=== PATIENT | female | born 1950 | race African-American/Black ===

== ENCOUNTER 2018-06-29 07:48 | Outpatient (CLI) | payer MEDICARE ==
--- NOTE | 2018-06-29 09:21 | CT ---
LOW DOSE PULMONARY LUNG SCAN SCREENING CT NONCONTRAST: Date: 06/29/18 INDICATION: Low dose screening evaluation. History of breast cancer. FINDINGS: There is a small, partially cavitary nodule of the lateral right upper lobe, which measures approxima tely 1.0 cm. There is nonspecific reticular nodularity of the lateral aspect of the right lung apex. There are scattered linear opacities of the lungs, which may be related to atelectasis and/or scar. M ild pulmonary emphysema is present bilaterally. There is no effusion. Scattered vascular disease is p resent. The regional soft tissues are limited by noncontrast technique. Tracheobronchial air column i s patent. IMPRESSION: Lung Rads 4A - Suspicious 1 cm partially cavitary right upper lobe nodule. Recommend PET CT for further assessment. POS: GABRIELA
== END 2018-06-29 07:49 | disposition home or self-care (01) ==
LOC: CT 07:48
PROVIDERS: ATTEND Family Medicine
DX: Z87.891 Personal history of nicotine dependence (principal); R93.89 Abnormal findings on diagnostic imaging of other specified body structures; R91.1 Solitary pulmonary nodule; Z85.3 Personal history of malignant neoplasm of breast
CPT/HCPCS: G0297

== ENCOUNTER 2018-07-11 13:02 | Outpatient (CLI) | payer MEDICARE, OTHER ==
--- NOTE | 2018-07-11 16:01 | PET ---
PET CT: HISTORY: 68-year-old female with lung nodule on the CT scan of 06/29/18. Patient has a history of breast cance r and is status post right lumpectomy and chemo/radiation therapy. TECHNIQUE: PET scanning with CT attenuation correction was performed from the base of the brain through the prox imal thighs following the intravenous administration of 10 mCi [id number] in the left arm. Imaging was p erformed after an uptake interval of 45 minutes. FINDINGS: Correlation is made with the CT chest of 06/29/18. No srinivasa hypermetabolism is seen in the neck, mediastinum, hilar regions, axilla, abdomen, pelvis, or inguinal regions. No hypermetabolic lung nodules, liver, adrenal, or skeletal lesions are seen. There is physiologic activity in the GI and tracts, and the visualized portions of the brain. The CT scan used for attenuation correction demonstrates no evidence of pleural effusions or ascites. IMPRESSION: 1. Negative PET scan. 2. A follow-up CT scan of the chest is recommended in 3 months. BEN [place]. POS: GABRIELA
== END 2018-07-11 13:03 | disposition home or self-care (01) ==
LOC: PET 13:02
PROVIDERS: ATTEND Family Medicine
DX: R93.89 Abnormal findings on diagnostic imaging of other specified body structures (principal)
CPT/HCPCS: 78815; A9552

== ENCOUNTER 2018-10-18 08:04 | Outpatient (CLI) | payer MEDICARE, OTHER ==
--- NOTE | 2018-10-18 11:31 | CT ---
CT PULMONARY LUNG SCAN: HISTORY: The patient has a history of breast cancer. Smoked for 30 years. This is followup for lung nodule. FINDINGS: There are some emphysematous lung changes seen. There are some peripheral blebs noted. There is norm e interstitial scarring present. There are some atelectatic changes in the lung bases. Within the right upper lobe, there are two areas of slight nodularity, one is more superior. It has more of a linear parenchymal change, probably related to scar. It has a small, 5 to 6 mm nodular com ponent, which appears slightly more prominent on the axial images, but on coronal views I do not feel it has significantly changed since the prior examination. The second area of nodularity is an ill-defined nodular area, measuring approximately 10 mm in size. The difference in measurement since the prior examination is only approximately 1 millimeter, and th is is not felt to be significant. There is no significant mediastinal or axillary adenopathy appreciated. There are coronary artery ca lcifications seen. The visualized liver parenchymal is unremarkable. IMPRESSION: 1. Lung-RADS category 3-Probably benign findings. Given the stability of the nodular areas within t he right upper lobe, six-month follow-up low-dose CT is recommended. 2. Category S-This is given for the other potentially clinically significant findings, which include coronary artery calcifications and emphysematous lung change. POS: TPC
== END 2018-10-18 08:05 | disposition home or self-care (01) ==
LOC: BICCT 08:04
PROVIDERS: ATTEND Family Medicine
DX: R91.8 Other nonspecific abnormal finding of lung field (principal); I25.10 Atherosclerotic heart disease of native coronary artery without angina pectoris; J98.4 Other disorders of lung
CPT/HCPCS: G0297

== ENCOUNTER 2018-11-27 06:52 | Outpatient (CLI) | payer MEDICARE, OTHER ==
--- NOTE | 2018-11-27 07:57 | ULT ---
ABDOMINAL ULTRASOUND: INDICATION: Abdominal pain. Several foci of [id number] artifact is seen on the gallbladder wall suggesting adenomyomatosis of the gallbladder. No evidence of gallstones. The common duct is normal caliber. The liver is unrem arkable. Spleen is unremarkable. The visualized aorta shows atherosclerotic change. Visualized IVC unremarkable. Pancreas is partially imaged and appears unremarkable as visualized. Both kidneys are imaged. Both kidneys show mild increased cortical echogenicity. There is mild full ness of the right collecting structures suggesting mild right hydronephrosis. Kidneys are otherwise unremarkable. IMPRESSION: 1. No definite gallstones. Question gallbladder adenomyomatosis. 2. Evidence of mild right hydronephrosis. 3. Mild increased renal cortical echogenicity. Correlate with renal function tests. POS: GABRIELA
== END 2018-11-27 06:53 | disposition home or self-care (01) ==
LOC: BICULT 06:52
PROVIDERS: ATTEND Internal Medicine
DX: K21.9 Gastro-esophageal reflux disease without esophagitis (principal); R74.0 Nonspecific elevation of levels of transaminase and lactic acid dehydrogenase [LDH]; R10.13 Epigastric pain; R19.4 Change in bowel habit; R19.7 Diarrhea, unspecified; R63.4 Abnormal weight loss; N13.30 Unspecified hydronephrosis
CPT/HCPCS: 76700

== ENCOUNTER 2019-01-31 12:42 | Outpatient (CLI) | payer MEDICARE, OTHER ==
--- NOTE | 2019-02-27 11:37 | MMO ---
Bilateral MAMMO Bilat Screen [facility]. CLINICAL HISTORY: Patient is 68 years old and is seen for screening. The patient has the following family history of breast cancer: mother and sister. The patient has a history of malignant (generic) at age 56. The patient has a history of right Lumpectomy - malignant. VIEWS: The views performed were: bilateral craniocaudal with tomosynthesis and bilateral mediolateral oblique with tomosynthesis. FILMS COMPARED: The present examination has been compared to prior imaging studies performed at [facility] on 10/07/2016 and 01/04/2018. MAMMOGRAM FINDINGS: There are scattered fibroglandular densities. Finding 1: There is an area of architectural distortion with associated post-surgical scar seen in the right breast. Finding 2: There are benign appearing calcifications seen in both breasts. There are also vascular calcifications. There are no suspicious masses, suspicious calcifications, or new areas of architectural distortion. IMPRESSION: THERE IS NO MAMMOGRAPHIC EVIDENCE OF MALIGNANCY. A ROUTINE FOLLOW-UP MAMMOGRAM IN 1 YEAR IS RECOMMENDED. THE RESULTS OF THIS EXAM WERE SENT TO THE PATIENT. ACR BI-RADS Category 2 - Benign finding MAMMOGRAPHY NOTE: 1. A negative mammogram report should not delay a biopsy if a dominant of clinically suspicious mass is present. 2. Approximately 10% to 15% of breast cancers are not detected by mammography. 3. Adenosis and dense breasts may obscure an underlying neoplasm.
== END 2019-01-31 12:43 | disposition home or self-care (01) ==
LOC: BICMAMMO 12:42
PROVIDERS: ATTEND Family Medicine
DX: Z12.31 Encounter for screening mammogram for malignant neoplasm of breast (principal); Z80.3 Family history of malignant neoplasm of breast
CPT/HCPCS: 77063; 77067

== ENCOUNTER 2019-04-25 07:54 | Outpatient (CLI) | payer MEDICARE, OTHER ==
--- NOTE | 2019-04-25 11:10 | CT ---
CT CHEST WITHOUT CONTRAST: CT LUNG SCAN LOW DOSE: HISTORY: Personal history of tobacco use. Twenty-four years of smoking. Patient currently smokes. COMPARISON: 06/29/2018 10/18/2018 TECHNIQUE: Low-dose screening lung CT is performed utilizing institutional protocol. FINDINGS: Lung screening specific (LUNG-RADS) Category 3-Redemonstration of a slightly irregular, marginated no dule in the right apex with adjacent linear density. The nodular component measures 0.6 cm (previously measuring 0.5 cm). The second nodule in the right upper lobe appears to have small foci o f cavitation. This nodule is also unchanged, measuring 0.9 x 5 cm (previously measuring 0.6 x 1.1 cm). Potential significant incidentals (LUNG-RADS Category S): Heterogeneous thyroid gland. Atherosclero sis of a nonaneurysmal aorta. There are coronary artery calcifications. Pulmonary incidentals: Stable fibrotic and emphysematous change. Other incidentals: Stable hypodensities involving the hepatic parenchyma, favored to be cysts. IMPRESSION: 1. LUNG-RADS 3: Probably benign findings. The right apical nodule is stable when compared to the m ost recent prior examination but has increased in size when compared to the June 2018 study. The cavitary nodule in the right upper lobe is unchanged and there is almost one year stability. Fol low-up imaging in 6 months is recommended. 2. LUNG-RADS Category S: Negative. No new or unknown potentially significant incidental findings re quiring urgent additional evaluation. 3. Other incidentals as above. RECOMMENDATIONS: Continued routine annual low-dose lung screening CT. Followup in one year. Transcribed Date/Time: 04/25/2019 11:22 AM
== END 2019-04-25 07:55 | disposition home or self-care (01) ==
LOC: CT 07:54
PROVIDERS: ATTEND Family Medicine
DX: Z87.891 Personal history of nicotine dependence (principal); R91.1 Solitary pulmonary nodule
CPT/HCPCS: G0297

== ENCOUNTER 2019-10-19 08:47 | Outpatient (CLI) | payer MEDICARE, OTHER ==
--- NOTE | 2019-10-19 11:29 | MRI ---
MRI BRAIN NONCONTRAST: DATE: 10/19/2019 HISTORY: 69-year-old female with: History of breast cancer in female Z85.3, and memory changes R41.3. FINDINGS: Please note that a negative noncontrast MRI does not completely rule out intracranial metastasis. If there is concern for brain metastasis, MRI with and without contrast would be recommended. The ventricles are normal in size and configuration. There is no major intraaxial signal abnormality , restricted diffusion, midline shift or any other mass effect, recent intraaxial hemorrhage, or extr aaxial fluid collection. There are a few punctate T2 hyperintensities in the left frontal deep cerebral white matter, which ar e nonspecific, but are statistically most likely to represent minimal chronic ischemic white matter c hanges due to minimal microvascular atherosclerosis, very common for this age group. IMPRESSION: Essentially normal. jnr POS: CET
== END 2019-10-19 08:48 | disposition home or self-care (01) ==
LOC: MRI 08:47
PROVIDERS: ATTEND Family Medicine
DX: R41.3 Other amnesia (principal); Z85.3 Personal history of malignant neoplasm of breast
CPT/HCPCS: 70551

== ENCOUNTER 2020-06-26 15:15 | Inpatient (IN) | payer MEDICARE, OTHER ==
[2020-06-26] MEDS ORDERED: methylPREDNISolone Sod Succ/PF 125 MG/2 ML VIAL ONE ×2 (15:55→16:06)
[2020-06-26] MEDS ORDERED: Aspirin Chewable 81 MG TAB ONE ×2 (15:55→16:06)
[2020-06-26 16:08] LABS: #Basophils 0.1 thou/uL (0.0-0.2); #Lymphocytes 2.5 thou/uL (1.20-3.40); #Monocytes 0.5 thou/uL (0.11-0.59); #Neutrophils 2.7 thou/uL (1.40-6.50); %Basophils 1.1 % (0.0-1.0); %Eosinophils 0.3 % (0.0-10.0); %Lymphocytes 43.3 % (21.0-51.0); %Monocytes 9.3 % (0.0-10.0); Mean Corpuscular HGB CONC 32.9 g/dL (32.0-36.0); Mean Corpuscular Hemoglobin 28.7 pg (27.0-31.0); Mean Corpuscular Volume 87.2 fL (78.0-98.0); Mean Platelet Volume 10.2 fL (7.4-10.4); Platelet Count 199 thou/uL (130-400); RBC Distribution Width 13.9 % (11.5-14.5); Red Blood Cell (RBC) Count 4.89 mill/uL (4.20-5.40); White Blood Cell (WBC) Count 5.8 thou/uL (4.8-10.8)
--- NOTE | 2020-06-26 16:09 | RAD ---
RADIOGRAPH CHEST 1 VIEW: DATE: 06/26/2020 TIME: 3:58 PM HISTORY: 70-year-old female with productive cough and dyspnea COMPARISON: 02/02/2017 FINDINGS: New finding of cardiomegaly. Mild haziness at central lung bases bilaterally, new since prior study. This may represent mild inter stitial edema. No consolidation. No pneumothorax. Questionable small bilateral pleural effusions. Again noted are the right axillary surgical clips. IMPRESSION: Cardiomegaly, possible mild pulmonary interstitial edema, and questionable small bilateral pleural ef fusions
[2020-06-26 16:34] LABS: ALT (SGPT) 124 U/L (8-55); AST (SGOT) 71 U/L (5-34); Albumin 3.7 g/dL (3.4-4.8); Alkaline Phosphatase 81 U/L (40-110); Anion Gap 14 mmol/L (10-20); BUN (Urea Nitrogen) 12 mg/dL (9.8-20.1); Bilirubin, Total 1.2 mg/dL (0.2-1.2); Calc. Creatinine Clearance 0 mL/min (70-130); Calcium 8.9 mg/dL (7.8-10.44); Carbon Dioxide 20 mmol/L (23-31); Chloride 106 mmol/L (98-107); Estimated GFR-MDRD Greater than 90; Globulin 3.2 g/dL (2.4-3.5); Glucose 113 mg/dL (80-115); Potassium 4.2 mmol/L (3.5-5.1); Protein, Total 6.9 g/dL (6.0-8.3); Sodium 136 mmol/L (136-145)
[2020-06-26] MEDS ORDERED: Albuterol Sulfate 2.5 mg/3 ml Neb ONE (16:34)
[2020-06-26] MEDS ORDERED: Furosemide 40 MG/4 ML VIAL ONE (17:36)
--- NOTE | 2020-06-26 18:08 | PDOC.HHP ---
Hospitalist HPI - History of Present Illness Chest pain, shortness of breath History of Present Illness: This is a 70-year-old female patient with a history of Hypertension, gastritis, breast cancer, thyroid cancer, polyneuropathy, who presents today with worsening shortness of breath for the past 2 to 3 days. Next patient has been in her usual state of health recently started 3 days ago with cough easy fatigability and shortness of breath. She denies any associated wheezing. With symptoms becoming worse she came to the ED with her for further evaluation. She denies associated fever, orthopnea or paroxysmal nocturnal dyspnea. She also denies any swelling of her lower extremities. She has associated right-sided chest pain with cough. Pain is localized on the right side of the chest, 6/10 intensity with coughing. Nonradiating. No relationship to meals or activity. She denies any trauma. At presentation blood pressure was 134/84, pulse 106, temperature 98.5 and saturation 98% on room air. Troponins were 0.01, BNP was elevated at 2005, bicarb slightly reduced at 20, AST 71, ALT 124. CBC was essentially within normal limit. Chest x-ray showed cardiomegaly with mild pulmonary interstitial edema and questionable small bilateral pleural effusions. EKG showed sinus tachycardia with left axis deviation special infarct age undetermined. Also had nonspecific ST and T wave abnormalities. She was given DuoNeb nebulization and diuresis to Lasix 40 mg. Also received Solu-Medrol and aspirin. She also however received 1 L normal saline. Symptoms were marginally improved at the time of my evaluation. Patient also has recent significant memory loss and currently on memantine and donepezil. Started these medications about 2 weeks ago. She also has a history of breast cancer with right partial mastectomy and thyroid cancer which was treated over a decade ago. She recently had EGD with biopsies showing chronic gastritis about a year ago Hospitalist ROS - Review of Systems Constitutional: denies: fever, chills, sweats Respiratory: reports: cough, shortness of breath, SOB with excertion. denies: hemoptysis Cardiovascular: reports: chest pain, palpitations. denies: orthopnea, paroxysmal noc. dyspnea Gastrointestinal: denies: nausea, vomiting, abdominal pain, diarrhea Genitourinary: denies: dysuria, frequency, incontinence Musculoskeletal: reports: back pain Neurological: denies: weakness, numbness Hospitalist History - Past Medical History Cardiac: reports: HTN Gastrointestinal: reports: Gastritis - Past Surgical History Past Surgical History: reports: Hysterectomy Other Surgical History: Partial mastectomy. - Family History Family History: reports: hypertension - Social History Smoking Status: Never smoker Alcohol: reports: None, Occassional Living Situation: With Family - Exam General Appearance: awake alert Eye: PERRL, anicteric sclera ENT: normocephalic atraumatic, no oropharyngeal lesions Neck: supple, symmetric, no JVD, no thyromegaly Heart: RRR, no murmur, no gallops, normal peripheral pulses Respiratory: no wheezes Respiratory - other findings: Reduced air entry bilaterally Gastrointestinal: soft, non-tender Extremities: no cyanosis, no clubbing, no edema Neurological: cranial nerve grossly intact, normal sensation to touch Psychiatric: normal affect, A&O x 3 Hospitalist Results - Labs Result Diagrams: 06/26/20 15:46 06/26/20 15:46 Lab results: WBC 5.8 thou/uL (4.8-10.8) 06/26/20 15:46 Hgb 14.0 g/dL (12.0-16.0) 06/26/20 15:46 Hct 42.6 % (36.0-47.0) 06/26/20 15:46 MCV 87.2 fL (78.0-98.0) 06/26/20 15:46 Plt Count 199 thou/uL (130-400) 06/26/20 15:46 Neutrophils % 46.0 % (42.0-75.0) 06/26/20 15:46 Sodium 136 mmol/L (136-145) 06/26/20 15:46 Potassium 4.2 mmol/L (3.5-5.1) 06/26/20 15:46 Chloride 106 mmol/L (98-107) 06/26/20 15:46 Carbon Dioxide 20 mmol/L (23-31) L 06/26/20 15:46 BUN 12 mg/dL (9.8-20.1) 06/26/20 15:46 Creatinine 0.75 mg/dL (0.6-1.1) 06/26/20 15:46 Glucose 113 mg/dL (80-115) 06/26/20 15:46 Calcium 8.9 mg/dL (7.8-10.44) 06/26/20 15:46 Total Bilirubin 1.2 mg/dL (0.2-1.2) 06/26/20 15:46 AST 71 U/L (5-34) H 06/26/20 15:46 ALT 124 U/L (8-55) H 06/26/20 15:46 Alkaline Phosphatase 81 U/L (40-110) 06/26/20 15:46 Troponin I Less than 0.010 ng/mL (< 0.028) 06/26/20 15:46 B-Natriuretic Peptide 2005.9 pg/mL (0-100) H 06/26/20 15:46 Serum Total Protein 6.9 g/dL (6.0-8.3) 06/26/20 15:46 Albumin 3.7 g/dL (3.4-4.8) 06/26/20 15:46 Hospitalist H&P A/P - Plan Plan: This is a 70-year-old female patient with a history of breast cancer, thyroid ca ncer, hypertension, gastritis who presented today with worsening shortness of breath. Initial evaluation concerning for new heart failure exacerbation and possible COPD. She will be admitted for diuresis and monitor on telemetry. Acute heart failure exacerbation Elevated BNP with congestion Likely secondary to uncontrolled hypertension Patient does not smoke and hardly drinks alcohol. Hold diuresis Monitor BMPreplace potassium/magnesium Daily weights Input output monitoring Heart healthy diet with low sodium Cardiology consult in a.m. for new onset heart failure Possible COPD exacerbation This is also possible however she started an ongoing smoker. DuoNeb PRN and scheduled Continue monitoring Chest pain Pleuritic Mainly right-sided in the region of her ribs No relationship to activity however worse with cough Resolved with diuresis Troponins flattrend Monitor on telemetry Hypertension Systolic blood pressure in the 150s. Was previously on blood pressure BP medications after acute event subsidedHCTZ Start amlodipine 5 mg daily Start beta-blockers once acute event subsided Continue diuresis on Lasix. PRN hydralazine for now. History of gastritis Start pantoprazole IV Back pain With central resolved with dialysis Continue monitoring. History of breast cancer/thyroid concern VT prophylaxisLovenox CODE STATUSfull code
[2020-06-26 18:20] LABS: Bilirubin Negative (Negative); Blood, Urine Negative (Negative); Clarity Clear (Clear); Glucose, Urine (Dipstick) Normal (Negative); Ketone, Urine Negative (Negative); Leukocyte Negative Leu/uL (Negative); Nitrite Negative (Negative); Protein, Urine (Dipstick) Negative (Neg-Trace); Specific Gravity, Urine 1.005 (1.002-1.036); Urobilinogen Normal mg/dL (Less than 2)
[2020-06-26] MEDS ORDERED: Furosemide 40 MG/4 ML VIAL SLOW IVP SCH (18:30)
[2020-06-26] MEDS ORDERED: Amlodipine 5 MG TAB PO SCH (21:00)
--- NOTE | 2020-06-26 21:32 | PDOC.FMACP ---
Advance Care Planning - Note Participants: family Summary: Advanced Care Planning was discussed. The diagnosis, prognosis and goals of care were discussed.
[2020-06-26 22:28] LABS: Troponin I 0.013 ng/mL (< 0.028)
[2020-06-26 23:04] LABS: Anion Gap 17 mmol/L (10-20); BUN (Urea Nitrogen) 11 mg/dL (9.8-20.1); Calc. Creatinine Clearance 55 mL/min (70-130); Calcium 8.7 mg/dL (7.8-10.44); Carbon Dioxide 22 mmol/L (23-31); Chloride 104 mmol/L (98-107); Estimated GFR-MDRD 90; Glucose 147 mg/dL (80-115); Sodium 140 mmol/L (136-145)
[2020-06-26 23:08] LABS: Potassium 2.9 mmol/L (3.5-5.1)
[2020-06-26] MEDS ORDERED: Electrolyte Replacement Protoc 1 EACH EACH FS SCH (23:30)
[2020-06-26] MEDS: Potassium Chloride 20 MEQ TAB PO SCH (23:41)
[2020-06-27] MEDS: Potassium Chloride 20 MEQ TAB PO SCH (03:56)
[2020-06-27 04:51] LABS: #Monocytes 0.3 thou/uL (0.11-0.59); #Neutrophils 4.4 thou/uL (1.40-6.50); %Basophils 0.2 % (0.0-1.0); %Eosinophils 0.2 % (0.0-10.0); %Lymphocytes 18.4 % (21.0-51.0); %Monocytes 4.4 % (0.0-10.0); %Neutrophils 76.8 % (42.0-75.0); Hemoglobin 14.2 g/dL (12.0-16.0); Mean Corpuscular HGB CONC 32.8 g/dL (32.0-36.0); Mean Corpuscular Hemoglobin 28.7 pg (27.0-31.0); Mean Corpuscular Volume 87.6 fL (78.0-98.0); Mean Platelet Volume 9.9 fL (7.4-10.4); Platelet Count 199 thou/uL (130-400); RBC Distribution Width 13.7 % (11.5-14.5); Red Blood Cell (RBC) Count 4.93 mill/uL (4.20-5.40); White Blood Cell (WBC) Count 5.7 thou/uL (4.8-10.8)
[2020-06-27 05:15] LABS: ALT (SGPT) 139 U/L (8-55); AST (SGOT) 75 U/L (5-34); Albumin 3.9 g/dL (3.4-4.8); Alkaline Phosphatase 85 U/L (40-110); Anion Gap 15 mmol/L (10-20); BUN (Urea Nitrogen) 11 mg/dL (9.8-20.1); Bilirubin, Total 0.8 mg/dL (0.2-1.2); Calc. Creatinine Clearance 55 mL/min (70-130); Calcium 8.9 mg/dL (7.8-10.44); Carbon Dioxide 24 mmol/L (23-31); Chloride 104 mmol/L (98-107); Estimated GFR-MDRD 90; Globulin 3.1 g/dL (2.4-3.5); Glucose 142 mg/dL (80-115); Magnesium 1.9 mg/dL (1.6-2.6); Potassium 3.7 mmol/L (3.5-5.1); Sodium 139 mmol/L (136-145)
[2020-06-27] MEDS: Acetaminophen 325 MG TAB PO PRN ×2 (07:55→15:28)
[2020-06-27] MEDS: Aspirin Chewable 81 MG TAB PO SCH (07:56)
[2020-06-27] MEDS: Enoxaparin Sodium 30 MG/0.3 ML SYRINGE SC SCH (07:56)
[2020-06-27] MEDS: Pantoprazole 40 MG VIAL IVP SCH (07:57)
[2020-06-27] MEDS ORDERED: Magnesium 2 GM/50 ML 2 GM in Premix Bag 1 BAG IVPB SCH (08:00)
[2020-06-27 08:52] LABS: Potassium 4.2 mmol/L (3.5-5.1)
[2020-06-27] MEDS ORDERED: Amlodipine 5 MG TAB PO SCH (09:00)
[2020-06-27] MEDS ORDERED: Furosemide 40 MG/4 ML VIAL SLOW IVP SCH (09:00)
[2020-06-27] MEDS ORDERED: Iopamidol 370 76% 100 ML VIAL ONE (09:52)
[2020-06-27] MEDS ORDERED: Lidocaine 2% Viscous Solution 10 ML, Aluminum & Magnesium Hydroxide 30 ML SSW SCH (10:45)
[2020-06-27] MEDS ORDERED: Sodium Chloride 0.9% 1,000 ML IV SCH ×2 (11:15→16:53)
--- NOTE | 2020-06-27 11:31 | RAD ---
XR Chest 1 View Portable HISTORY: Pulmonary edema COMPARISON: Previous day FINDINGS: The heart is enlarged. The aorta is tortuous. The lungs are well expanded without lobar con solidation, pneumothoraces, sangita pulmonary edema or pleural effusions. Surgical clips in the right axilla are again seen. IMPRESSION: No radiographic evidence of acute cardiopulmonary process.
[2020-06-27] MEDS ORDERED: Nitroglycerin 0.4 MG TAB (25 Tab Bottle) ONE (12:52)
[2020-06-27 12:56] LABS: SARS-CoV-2 MS2 Positive; SARS-CoV-2 N Gene Negative; SARS-CoV-2 S Gene Negative; SARS-CoV-2 by NAA Not Detected (NotDetected); SARS-CoV-2 orf1ab Negative
[2020-06-27] MEDS ORDERED: Nitroglycerin 0.4 MG TAB (25 Tab Bottle) SL PRN (13:04)
[2020-06-27] MEDS: Ondansetron PF 4 MG/2 ML Vial IVP PRN ×2 (13:26→19:24)
[2020-06-27] MEDS ORDERED: Famotidine 20 MG TAB PO SCH (17:00)
[2020-06-27] MEDS ORDERED: diphenhydrAMINE 25 MG CAP PO SCH (17:30)
[2020-06-27] MEDS ORDERED: predniSONE 20 MG TAB PO SCH (17:30)
--- NOTE | 2020-06-27 20:32 | PDOC.HOSPP ---
- Subjective Encounter Date: 06/27/20 Encounter Time: 11:00 Subjective: The patient this morning had complained of chest pain . Described it as hurting all over and stated that it hurt to breathe. She denied abdominal pain. She also complained of diffuse body pain and was noted to be writhing around in bed. She did have a dry heave . She refused nitro. She reported improvement with zofran This afternoon, patient only had abdominal pain and stated that it hurt everytime she ate. She also had nausea. SHe denied chest pain. The patient reports a dry cough - Objective Vital Signs & Weight: Vital Signs (12 hours) Temp Pulse Resp BP BP Pulse Ox 06/27/20 19:21 98.3 F 111 H 22 H 134/80 100 06/27/20 19:11 104 H 22 H 100 06/27/20 16:13 98.4 F 99 22 H 137/82 98 06/27/20 15:27 97.8 F 98 20 132/68 100 06/27/20 12:16 79 16 06/27/20 11:58 98.0 F 93 18 137/88 99 Weight Admit Weight 113 lb 9.6 oz Weight 113 lb 14.4 oz I&O: 06/26/20 06/27/20 06/28/20 06:59 06:59 06:59 Intake Total 450 1050 Output Total 750 950 Balance -300 100 Result Diagrams: 06/27/20 04:19 06/27/20 08:19 Hospitalist ROS - Review of Systems Constitutional: denies: fever, chills - Medication Medications: Active Medications Generic Name Dose Route Start Last Admin Trade Name Realq PRN Reason Stop Dose Admin Acetaminophen 650 mg 06/27/20 06:41 06/27/20 15:28 Acetaminophen 325 Mg Tab PO 650 mg Q6H PRN Administration Headache/Fever or Pain Albuterol/Ipratropium 3 ml 06/26/20 22:30 06/27/20 19:11 Ipratropium/Albuterol Sulfate 3 Ml Neb NEB 3 ml [id number] CRESCENCIO Administration Aspirin 81 mg 06/27/20 09:00 06/27/20 07:56 Aspirin Chewable 81 Mg Tab PO 81 mg DAILY CRESCENCIO Administration Enoxaparin Sodium 30 mg 06/27/20 09:00 06/27/20 07:56 Enoxaparin Sodium 30 Mg/0.3 Ml Syringe SC 30 mg 0900 CRESCENCIO Administration Sodium Chloride 1,000 mls @ 50 mls/hr 06/27/20 16:53 06/27/20 17:10 Normal Saline 0.9% IV 1,000 mls .Q20H CRESCENCIO Administration Ondansetron HCl 4 mg 06/27/20 13:04 06/27/20 19:24 Ondansetron Pf 4 Mg/2 Ml Vial IVP 4 mg Q6H PRN Administration Nausea/Vomiting Pantoprazole Sodium 40 mg 06/27/20 09:00 06/27/20 07:57 Pantoprazole 40 Mg Vial IVP 40 mg DAILY CRESCENCIO Administration - Exam General Appearance: NAD, awake alert General - other findings: initially noted to be writhing around in bed, then appeared more comfortabl Eye: PERRL, anicteric sclera ENT: normocephalic atraumatic, no oropharyngeal lesions Neck: no JVD Heart: RRR, no murmur, no gallops, no rubs Respiratory: CTAB, no wheezes, no rales, no ronchi Gastrointestinal: soft, non-distended, normal bowel sounds Gastrointestinal - other findings: mild epigastric tenderness Extremities: no cyanosis, no clubbing, no edema Skin: normal turgor, no lesions, no rashes Hosp A/P - Plan THis is a 70 year old female with past medical history of breast cancer who presented with chest pain for two days, cough and shortness of breath. She currently now has abdominal pain and is unable to tolerate oral intake Shortness of breath - possibly pulmonary edema - chest X ray initially showed pulmonary Edema. She received IV lasix. Repeat chest Xray was normal - currently on re-evaluation patient does not appear short of breath Chest pain - unclear etiology, may be referred from GI tract? -EKG unremarkable - troponins negative times three Transaminitis - possibly dehydration. IV fluids ordered - CT abdomen ordered Abdominal pain - possibly viral syndrome - trial of pepcid. CT abdomen ordered Nausea - ordered zofran prn Hypokalemia - potassium was 2.9. Improved to 4.2 Cough/Myalgia - COVId swab negative - will check respiratory viral panel to rule out flu Dispo: pending tolerating a regular diet
--- NOTE | 2020-06-27 20:33 | CT ---
CT ABDOMEN AND PELVIS WITHOUT IV CONTRAST: 06/27/20 Oral contrast was not given. Lack of IV and oral contrast limits the exam. There is very little intra-abdominal fat plane. The lung bases appear clear with chronic lung parenchymal changes noted. There are low density lesions seen in the liver, which are consistent with hepatic cysts. These are s table when compared to CT chest of 04/25/19. The spleen is unremarkable. Pancreas poorly evaluated on this unenhanced study appears unremarkable. The stomach is prominent in size but is not distended. Stomach wall cannot be adequately evaluated on this exam. Small bowel loops showed nonspecific distention in the lower abdomen without dilatation. The appendix is not identified. Colon is otherwise unremarkable. Images through the pelvis show a contracted urinary bladder which is not evaluated. No significant fr ee fluid. Evidence of hysterectomy. Osseous structures unremarkable with degenerative disc changes at L5-S1. The aorta is calcified without aneurysm. No evidence of adenopathy. IMPRESSION: Limited exam without IV or oral contrast. No evidence of acute process identified. POS: AGW
[2020-06-27 21:03] LABS: Anion Gap 12 mmol/L (10-20); BUN (Urea Nitrogen) 14 mg/dL (9.8-20.1); Calc. Creatinine Clearance 59 mL/min (70-130); Calcium 8.7 mg/dL (7.8-10.44); Carbon Dioxide 25 mmol/L (23-31); Chloride 103 mmol/L (98-107); Estimated GFR-MDRD Greater than 90; Glucose 168 mg/dL (80-115); Lipase 8 U/L (8-78); Magnesium 2.1 mg/dL (1.6-2.6); Potassium 3.4 mmol/L (3.5-5.1); Sodium 137 mmol/L (136-145)
[2020-06-27 22:00] LABS: Lactic Acid 2.9 mmol/L (0.5-2.2)
[2020-06-27] MEDS ORDERED: traMADol HCl 50 MG TAB PO SCH (22:00)
[2020-06-27 22:11] LABS: ALT (SGPT) 135 U/L (8-55); AST (SGOT) 70 U/L (5-34); Albumin 3.9 g/dL (3.4-4.8); Alkaline Phosphatase 81 U/L (40-110); Bilirubin, Direct 0.4 mg/dL (0.1-0.3); Bilirubin, Total 1.2 mg/dL (0.2-1.2); Protein, Total 7.2 g/dL (6.0-8.3)
[2020-06-27] MEDS ORDERED: diphenhydrAMINE 50 MG/ML VIAL IVP SCH (23:45)
--- NOTE | 2020-06-28 00:02 | CON ---
DATE OF CONSULTATION: 06/27/2020 REASON FOR CONSULTATION: Congestive heart failure. HISTORY OF PRESENT ILLNESS: Ms. Michoacano Edmonds is a 70-year-old woman. The patient was brought to the hospital yesterday with shortness of breath, worsening over the last 2-3 days. She noted increasing shortness of breath and easy fatigability. No wheezing. No chest pain. She had no fever or no nocturnal dyspnea. No orthopnea. No swelling of her lower extremities. When she coughs, she had some discomfort at the right side of her chest. While she was here, she did receive 2 doses of potassium, later had abdominal pain. Potassium was given orally 40 mEq on 2 occasions. Initial blood pressure was 134/84, pulse was 106 initially, temperature 98.5. Troponins negative. The patient was given Solu-Medrol as well as Lasix. This morning, the patient had abdominal pain, but it appeared to occur after the potassium was given. SOCIAL HISTORY: No smoking history. Alcohol none. PAST MEDICAL HISTORY: Negative for heart disease. Positive for hypertension and gastritis. PHYSICAL EXAMINATION: GENERAL: This is a pleasant, thin woman, complaining of abdominal pain. Blood pressure 137/88, pulse 90, regular. EYES: Sclerae nonicteric. MOUTH: Mucous membranes moist. NECK: Supple, no lymphadenopathy. LUNGS: Clear. CARDIAC: The patient was tachycardic at rest with heart rate over 100. No murmur, rub or gallop. ABDOMEN: Soft and nontender. No hepatosplenomegaly. She is thin. EXTREMITIES: No clubbing. No cyanosis. There is no edema. Good peripheral pulses. PERTINENT LABORATORY: Initial potassium is 2.9, is 4.2 after potassium. AST 75, ALT 139. BNP 2005.9. IMAGIN. EKG showed sinus rhythm. 2. Echocardiogram is ordered, but the patient is unable to hold still to get it done. 3. Chest x-ray shows some cardiomegaly. ASSESSMENT: 1. Congestive heart failure, probably systolic, [id number] with markedly increased BNP. 2. Hypokalemia, improved. 3. Increased liver function test, probably hepatic congestion. 4. She does not appear to be volume overloaded. PLAN: 1. We will gently give intravenous fluid. 2. Start Entresto tonight. 3. Hopefully, the patient can have an echocardiogram done tomorrow. 4. Continue low-dose Lovenox, DVT prophylaxis dose. 5. Stop Lasix at the present time. 6. We will follow with you during this hospitalization. Job ID: [id number]
[2020-06-28] MEDS ORDERED: Promethazine HCl 12.5 MG in Sodium Chloride 0.9% 50 ML IVPB SCH (00:30)
[2020-06-28] MEDS: Ondansetron PF 4 MG/2 ML Vial IVP PRN ×4 (02:58→23:34)
[2020-06-28 04:52] LABS: #Lymphocytes 1.5 thou/uL (1.20-3.40); #Monocytes 0.9 thou/uL (0.11-0.59); #Neutrophils 9.4 thou/uL (1.40-6.50); %Basophils 0.1 % (0.0-1.0); %Eosinophils 0.2 % (0.0-10.0); %Lymphocytes 12.9 % (21.0-51.0); %Monocytes 7.8 % (0.0-10.0); %Neutrophils 78.9 % (42.0-75.0); Hemoglobin 13.9 g/dL (12.0-16.0); Mean Corpuscular HGB CONC 31.6 g/dL (32.0-36.0); Mean Corpuscular Hemoglobin 27.9 pg (27.0-31.0); Mean Corpuscular Volume 88.2 fL (78.0-98.0); Mean Platelet Volume 10.1 fL (7.4-10.4); Platelet Count 199 thou/uL (130-400); RBC Distribution Width 14.1 % (11.5-14.5); Red Blood Cell (RBC) Count 4.99 mill/uL (4.20-5.40); White Blood Cell (WBC) Count 11.9 thou/uL (4.8-10.8)
[2020-06-28 05:08] LABS: Anion Gap 15 mmol/L (10-20); BUN (Urea Nitrogen) 15 mg/dL (9.8-20.1); Calc. Creatinine Clearance 63 mL/min (70-130); Calcium 9.2 mg/dL (7.8-10.44); Carbon Dioxide 24 mmol/L (23-31); Chloride 103 mmol/L (98-107); Estimated GFR-MDRD Greater than 90; Glucose 125 mg/dL (80-115); Magnesium 2.3 mg/dL (1.6-2.6); Potassium 3.5 mmol/L (3.5-5.1); Sodium 138 mmol/L (136-145)
[2020-06-28 05:09] LABS: Lactic Acid 1.5 mmol/L (0.5-2.2)
[2020-06-28] MEDS ORDERED: Famotidine/PF 20 mg/2ml Vial SLOW IVP SCH (05:45)
[2020-06-28] MEDS: Potassium Chloride 20 MEQ TAB PO SCH ×2 (07:09→07:17)
--- NOTE | 2020-06-28 08:55 | ULT ---
RIGHT UPPER QUADRANT ULTRASOUND: HISTORY: Abdominal pain with elevated liver function tests. FINDINGS: Images through the gallbladder show echogenic foci along the gallbladder wall which can be seen with adenomyomatosis. No definite gallstones. The common duct is normal caliber. Visualized liver, panc reas, and right kidney appear unremarkable. The technologist describes a negative Barraza's sign. IMPRESSION: Echogenic foci along the gallbladder wall with ring-down artifact noted by the technologist. This is nonspecific but can be seen with adenomyomatosis. No definite gallstones. POS: AGW
--- NOTE | 2020-06-28 09:32 | CT ---
PRELIMINARY REPORT/DIRECT RADIOLOGY/EMERGENCY AFTER HOURS PROCEDURE: EXAM: CTA Abdomen and Pelvis with Intravenous Contrast. CLINICAL HISTORY: Pt c/o severe abdominal pain all across her abdomen. Pt also states having nausea a nd vomiting. Pt is unsure of prior surgical hx. TECHNIQUE: Axial CTA images of the abdomen and pelvis with intravenous contrast. Three-dimensional UT P/volume rendered reformations were performed. CONTRAST: With; ISOVUE 30, 90ml COMPARISON: None provided. FINDINGS: VASCULATURE: Aorta: Atherosclerotic changes are noted in the abdominal aorta.. No abdominal aortic aneurysm. No di ssection. Celiac trunk: No acute finding. No occlusion or significant stenosis. Superior mesenteric artery: No acute finding. No occlusion or significant stenosis. Inferior mesenteric artery: No acute finding. No occlusion or significant stenosis. Renal arteries: No acute finding. No occlusion or significant stenosis. Iliac arteries: No acute finding. No occlusion or significant stenosis. Lower thorax: Heart is enlarged. Interstitial thickening in the visualized lung suggests interstitial pulmonary edema. Nodular parenchymal band noted in the left lower lobe most likely represent subsegm ental atelectasis. ABDOMEN: Liver: Heterogeneous enhancement of the liver suggesting congestion. Scattered fluid attenuation foci in the liver suggest multiple hepatic cysts. Gallbladder and bile ducts: No calcified stone. No ductal dilation. Pancreas: Unremarkable. No ductal dilation. Spleen: Unremarkable. Adrenals: No mass. Kidneys and ureters: The kidneys enhance symmetrically. No hydronephrosis. No solid mass. Stomach and bowel: No obstruction. No bowel wall thickening. There is colonic diverticulosis. No CT evidence of acute diverticulitis. Abdominal wall and soft tissues: Unremarkable. Appendix: No CT evidence for appendicitis. PELVIS: Bladder:Unremarkable. Reproductive: Unremarkable as visualized. Peritoneum: No free fluid. No free air. Lymph nodes: No lymphadenopathy. Bones: No acute osseous abnormality. IMPRESSION: No occlusion or hemodynamically significant stenosis of the arterial system of the abdome n or pelvis. No AAA. No aortic dissection. Cardiomegaly with interstitial thickening suggesting CHF ELECTRONICALLY SIGNED BY: Ella Partida MD Jun 28, 2020 2:04:23 AM CDT FINAL REPORT CTA ABDOMEN AND PELVIS: Aorta shows mild atherosclerotic change. No evidence of dissection or aneurysm. No evidence of sign ificant stenosis at the origin of the celiac artery, superior mesenteric artery, or renal arteries. Hepatic cysts are noted. The spleen, pancreas, and kidneys are unremarkable. Bowel loops are unrema rkable. I am in agreement with the preliminary report. POS: AGW
[2020-06-28] MEDS: Enoxaparin Sodium 30 MG/0.3 ML SYRINGE SC SCH (10:03)
[2020-06-28] MEDS: Pantoprazole 40 MG VIAL IVP SCH (10:03)
[2020-06-28] MEDS: Aspirin Chewable 81 MG TAB PO SCH (10:03)
[2020-06-28] MEDS: Acetaminophen 325 MG TAB PO PRN ×3 (10:03→23:34)
[2020-06-28] MEDS ORDERED: Spironolactone 25 MG TAB PO SCH (11:45)
--- NOTE | 2020-06-28 12:06 | PRG ---
DATE OF SERVICE: 06/28/2020 SUBJECTIVE: Ms. Edmonds states she is not having chest pain or shortness of breath. Her abdomen is still painful, but it is better than yesterday, she says. She is feeding a little bit. OBJECTIVE: VITAL SIGNS: Her blood pressure is 134/90, pulse is 110 and it is sinus. LUNGS: Clear. CARDIAC: She is tachycardic. I do not hear murmur, rub, or gallop. ABDOMEN: Soft, nontender. EXTREMITIES: There is no edema. DIAGNOSTIC STUDIES: CT of the abdomen did not reveal significant pathology in terms of explaining why her abdomen is hurting. She does have some vascular disease identified but nothing obstructive. Echocardiogram revealed ejection fraction severely depressed at 15%, severely dilated left atrium, global hypokinesis, looks like a cardiomyopathy. ASSESSMENT: 1. Congestive heart failure systolic, acute on chronic, probably very long-standing with dilatation of left ventricle and left atrium.. 2. Also, has severe mitral regurgitation related to dilatation of the left ventricle. 3. Increased liver function tests, suspect this is probably hepatic congestion. 4. Hypokalemia, improved. Potassium is 3.5. She has a lot of abdominal pain after potassium is given orally yesterday. PLAN: 1. Add spironolactone. 2. She is on Entresto. 3. Add very low-dose carvedilol, need to be very careful as she is not well compensated yet. We will use extremely low-dose of carvedilol. 4. Ultimately, cardiac catheterization, but needs to be better compensated first. 5. Very high probability that this is a cardiomyopathy. Job ID: [id number]
--- NOTE | 2020-06-28 13:33 | PDOC.HOSPP ---
- Subjective Encounter Date: 06/28/20 Encounter Time: 13:30 Subjective: f/u for systolic CHF with EF 15% on Entresto/Coreg/Aldactone. Some abd cramps but no BM since admit. Has had trouble with constipation recently. - Objective Vital Signs & Weight: Vital Signs (12 hours) Temp Pulse Resp BP Pulse Ox 06/28/20 11:55 98.8 F 109 H 20 137/84 100 06/28/20 11:20 112 H 15 06/28/20 07:35 98.3 F 112 H 20 139/90 99 06/28/20 07:11 99.2 F 110 H 24 H 134/90 99 06/28/20 06:54 106 H 20 06/28/20 03:47 99.3 F 103 H 18 136/87 98 Weight Admit Weight 113 lb 9.6 oz Weight 113 lb I&O: 06/27/20 06/28/20 06/29/20 06:59 06:59 06:59 Intake Total 450 1150 Output Total 750 1450 Balance -300 -300 Result Diagrams: 06/28/20 04:34 06/28/20 04:34 Additional Labs: Microbiology 06/27/20 23:36 Nasopharyngeal swab Respiratory Virus Panel (PCR) - Final Laboratory Tests 01/31/17 06/26/20 06/26/20 19:29 15:46 15:46 Lactic Acid AST 71 H ALT 124 H B-Natriuretic Peptide 150.9 H 2005.9 H Creatine Kinase Lipase SARS-CoV-2 (PCR) 06/26/20 06/27/20 06/27/20 18:58 04:19 20:24 Lactic Acid AST 75 H ALT 139 H B-Natriuretic Peptide Creatine Kinase Lipase 8 SARS-CoV-2 (PCR) Not Detected 06/27/20 06/27/20 06/27/20 21:22 21:22 21:22 Lactic Acid 2.9 H AST 70 H ALT 135 H B-Natriuretic Peptide Creatine Kinase 516 H Lipase SARS-CoV-2 (PCR) 06/28/20 04:34 Lactic Acid 1.5 AST ALT B-Natriuretic Peptide Creatine Kinase Lipase SARS-CoV-2 (PCR) Radiology Reviewed by me: Yes (Echo - EF 15%, severe MR, severe LAE) EKG Reviewed by me: Yes (Tele - Sinus tach in low 100's) Hospitalist ROS - Medication Medications: Active Medications Generic Name Dose Route Start Last Admin Trade Name Freq PRN Reason Stop Dose Admin Acetaminophen 650 mg 06/27/20 06:41 06/28/20 10:03 Acetaminophen 325 Mg Tab PO 650 mg Q6H PRN Administration Headache/Fever or Pain Albuterol/Ipratropium 3 ml 06/26/20 22:30 06/28/20 11:20 Ipratropium/Albuterol Sulfate 3 Ml Neb NEB 3 ml [id number] CRESCENCIO Administration Aspirin 81 mg 06/27/20 09:00 06/28/20 10:03 Aspirin Chewable 81 Mg Tab PO 81 mg DAILY CRESCENCIO Administration Diphenhydramine HCl 50 mg 06/27/20 23:45 06/28/20 00:44 Diphenhydramine 50 Mg/Ml Vial IVP 06/28/20 23:46 50 mg WILLCALL CRESCENCIO Administration Enoxaparin Sodium 30 mg 06/27/20 09:00 06/28/20 10:03 Enoxaparin Sodium 30 Mg/0.3 Ml Syringe SC 30 mg 0900 CRESCENCIO Administration Ondansetron HCl 4 mg 06/27/20 13:04 06/28/20 10:03 Ondansetron Pf 4 Mg/2 Ml Vial IVP 4 mg Q6H PRN Administration Nausea/Vomiting Sacubitril/Valsartan 1 tab 06/27/20 21:00 06/28/20 10:03 Sacubitril 24mg/Valsartan 26mg Tab PO 1 tab BID CRESCENCIO Administration Spironolactone 25 mg 06/28/20 11:45 06/28/20 11:57 Spironolactone 25 Mg Tab PO 06/28/20 14:00 25 mg NOW CRESCENCIO Administration - Exam General Appearance: NAD, awake alert Eye: PERRL, anicteric sclera ENT: normocephalic atraumatic, no oropharyngeal lesions Neck: supple, symmetric, no JVD, no thyromegaly, no lymphadenopathy Heart: no gallops, no rubs, normal peripheral pulses, murmur present Heart - other findings: S1, S2 tachycardic Respiratory: CTAB, no wheezes, no rales, no ronchi, normal chest expansion Gastrointestinal: soft, non-distended, normal bowel sounds, no palpable masses Gastrointestinal - other findings: mild TTP Extremities: no cyanosis, no clubbing, no edema Skin: normal turgor, no lesions Neurological: cranial nerve grossly intact, no new deficit Musculoskeletal: normal tone, normal strength Psychiatric: normal affect, A&O x 3 Hosp A/P (1) Acute systolic CHF (congestive heart failure) Code(s): I50.21 - ACUTE SYSTOLIC (CONGESTIVE) HEART FAILURE Status: Acute Plan: EF 15%, continue Entresto/Coreg/Aldactone, likely will need heart cath in the near future (2) COPD exacerbation Code(s): J44.1 - CHRONIC OBSTRUCTIVE PULMONARY DISEASE W (ACUTE) EXACERBATION Status: Acute Plan: Mild exacerbation, continue pulmonary support, Duonebs PRN, Prednisone d/c'd (3) Transaminitis Code(s): R74.01 - ELEVATION OF LEVELS OF LIVER TRANSAMINASE LEVELS Status: Acute Plan: Secondary to CHF and hepatic congestion, serial monitoring (4) HTN (hypertension) Code(s): I10 - ESSENTIAL (PRIMARY) HYPERTENSION Status: Chronic Qualifiers: Hypertension type: essential hypertension Qualified Code(s): I10 - Essential (primary) hypertension Plan: Continue current BP regimen, serial monitoring (5) Abdominal pain Code(s): R10.9 - UNSPECIFIED ABDOMINAL PAIN Status: Acute Qualifiers: Abdominal location: generalized Qualified Code(s): R10.84 - Generalized abdominal pain Plan: Likely due to constipation and hepatic congestion, trial Senokot-S/Dulcolax supp - 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
--- NOTE | 2020-06-28 14:08 | EKG ---
Test Reason : SOB Blood Pressure : / mmHG Vent. Rate : 109 BPM Atrial Rate : 109 BPM P-R Int : 126 ms QRS Dur : 104 ms QT Int : 380 ms P-R-T Axes : 066 -37 107 degrees QTc Int : 511 ms Sinus tachycardia Left atrial enlargement Left axis deviation Septal infarct , age undetermined Abnormal ECG Confirmed by QUINTON PERAZA ([id number]), research editor ENRIQUE GOLDMAN ([id number]) on 06/28/2020 2:08:15 PM Referred By: Confirmed By:QUINTON Gonsalez
[2020-06-28] MEDS ORDERED: Bisacodyl 10 MG SUPP PR PRN (14:19)
[2020-06-28] MEDS: Carvedilol 3.125 MG TAB PO SCH (16:16)
[2020-06-28] MEDS ORDERED: Polyethylene Glycol 3350 17 GM Packet PO SCH (18:45)
[2020-06-28] MEDS: Senokot S 8.6-50 MG TAB PO SCH (19:42)
[2020-06-28] MEDS ORDERED: Famotidine 20 MG TAB PO SCH (21:00)
[2020-06-28] MEDS ORDERED: Lidocaine 2% Viscous Solution 10 ML, Aluminum & Magnesium Hydroxide 30 ML SSW SCH (21:00)
[2020-06-29] MEDS: Mag-Al 1200 mg/1200 mg/30 ML UDCUP PO PRN ×2 (02:20→08:51)
[2020-06-29] MEDS ORDERED: Pantoprazole 40 MG VIAL IVP SCH (03:45)
[2020-06-29] MEDS ORDERED: Sucralfate 1 GM/10 ML UDCUP PO SCH (04:15)
[2020-06-29 06:10] LABS: #Monocytes 0.9 thou/uL (0.11-0.59); %Basophils 0.3 % (0.0-1.0); %Eosinophils 0.1 % (0.0-10.0); %Lymphocytes 19.9 % (21.0-51.0); %Monocytes 8.9 % (0.0-10.0); %Neutrophils 70.8 % (42.0-75.0); Hemoglobin 14.7 g/dL (12.0-16.0); Mean Corpuscular HGB CONC 31.8 g/dL (32.0-36.0); Mean Corpuscular Hemoglobin 28.4 pg (27.0-31.0); Mean Corpuscular Volume 89.4 fL (78.0-98.0); Mean Platelet Volume 9.6 fL (7.4-10.4); Platelet Count 199 thou/uL (130-400); RBC Distribution Width 14.1 % (11.5-14.5); Red Blood Cell (RBC) Count 5.17 mill/uL (4.20-5.40); White Blood Cell (WBC) Count 9.9 thou/uL (4.8-10.8)
[2020-06-29 06:27] LABS: ALT (SGPT) 155 U/L (8-55); AST (SGOT) 90 U/L (5-34); Alkaline Phosphatase 80 U/L (40-110); Anion Gap 14 mmol/L (10-20); BUN (Urea Nitrogen) 24 mg/dL (9.8-20.1); Bilirubin, Total 1.7 mg/dL (0.2-1.2); Calc. Creatinine Clearance 57 mL/min (70-130); Calcium 8.6 mg/dL (7.8-10.44); Carbon Dioxide 26 mmol/L (23-31); Chloride 100 mmol/L (98-107); Estimated GFR-MDRD Greater than 90; Globulin 2.7 g/dL (2.4-3.5); Glucose 124 mg/dL (80-115); Potassium 3.5 mmol/L (3.5-5.1); Protein, Total 6.7 g/dL (6.0-8.3); Sodium 136 mmol/L (136-145)
[2020-06-29 06:29] LABS: Troponin I 0.046 ng/mL (< 0.028)
[2020-06-29 06:46] LABS: HBCM Index 0.06 S/CO (0-0.79); HBSAg Index 0.22 S/CO (0-0.99); Hep A IgM AB Non-Reactive (NonReactive); Hep A IgM S/CO 0.16 S/CO (0-0.79); Hep B Surf Ag Non-Reactive S/CO (NonReactive); Hep C IgG Ab Non-Reactive (NonReactive); Hep C Index 0.08 S/CO (0-0.79); Hepatitis B Core IgM Abs Non-Reactive (NonReactive)
[2020-06-29] MEDS ORDERED: Potassium Chloride 20 MEQ TAB PO SCH (07:15)
[2020-06-29] MEDS: Sucralfate 1 GM/10 ML UDCUP PO SCH ×4 (08:00→19:34)
[2020-06-29] MEDS: Spironolactone 25 MG TAB PO SCH (08:01)
[2020-06-29] MEDS: Carvedilol 3.125 MG TAB PO SCH ×2 (08:01→16:30)
[2020-06-29] MEDS: Senokot S 8.6-50 MG TAB PO SCH ×2 (08:01→19:34)
[2020-06-29] MEDS: Polyethylene Glycol 3350 17 GM Packet PO SCH (08:02)
[2020-06-29] MEDS: Aspirin Chewable 81 MG TAB PO SCH (08:06)
[2020-06-29] MEDS: Enoxaparin Sodium 30 MG/0.3 ML SYRINGE SC SCH (08:13)
--- NOTE | 2020-06-29 09:01 | PRG ---
DATE OF SERVICE: 06/28/2020 SUBJECTIVE: This is a 70-year-old female hospitalized with heart failure, abnormal LFTs. She has been seen by Dr. Raul Johnson. The patient was seen because of abnormal LFTs and abdominal pain. When I saw her this morning, she was very comfortable, her breathing was benign, and she denied having any abdominal pain. When I came to see this evening and she was having severe abdominal pain. She feels burning inside the abdomen. Interestingly, abdomen is very soft, not even tender. She said she had severe pain, but I palpated her abdomen in all quadrants and found it to be nontender. She also says it is nontender. There is some history of some constipation and has been started on some docusate and senna by Dr. Barillas this evening. PHYSICAL EXAMINATION: VITAL SIGNS: Very stable. Afebrile. Pulse is 102, blood pressure 137/82. ABDOMEN: Soft, nondistended, nontender. The patient has had abdominal CAT scan and also sonogram today, There was _no pathology. We will give her some MiraLAX for constipation and we will re- evaluate again this evening. She actually has had a CT angiogram yesterday and does not show any major occlusion. Celiac trunk, no occlusion. again no acute findings. Renal arteries, no blockage. PLAN: Symptomatic treatment. We will re-evaluate again tomorrow morning. Job ID: [id number] MTDD
[2020-06-29] MEDS ORDERED: Lidocaine 2% Viscous Solution 20 ML, Aluminum & Magnesium Hydroxide 30 ML, Donnatal Eli... SSW SCH (09:30)
--- NOTE | 2020-06-29 12:27 | PDOC.HOSPP ---
- Subjective Encounter Date: 06/29/20 Encounter Time: 12:20 Subjective: f/u for systolic CHF with EF 15% on Entresto/Aldactone/Coreg. c/o abd pain earlier and given several laxatives/Lidocaine/Maalox and feels better currently. - Objective Vital Signs & Weight: Vital Signs (12 hours) Temp Pulse Resp BP Pulse Ox 06/29/20 11:40 99.4 F 102 H 18 125/78 94 L 06/29/20 07:33 98.7 F 122 H 20 149/94 H 97 06/29/20 03:40 97.9 F 104 H 22 H 137/92 H 100 Weight Admit Weight 113 lb 9.6 oz Weight 108 lb 12.8 oz I&O: 06/28/20 06/29/20 06/30/20 06:59 06:59 06:59 Intake Total 1150 360 Output Total 1450 200 Balance -300 160 Result Diagrams: 06/29/20 05:32 06/29/20 05:32 Additional Labs: Microbiology 06/27/20 23:36 Nasopharyngeal swab Respiratory Virus Panel (PCR) - Final Laboratory Tests 01/31/17 06/26/20 06/26/20 19:29 15:46 15:46 Lactic Acid AST 71 H ALT 124 H Alkaline Phosphatase B-Natriuretic Peptide 150.9 H 2005.9 H Creatine Kinase Lipase SARS-CoV-2 (PCR) Hepatitis A IgM Ab Hep Bs Antigen Hep B Core IgM Ab Hepatitis C Antibody 06/26/20 06/27/20 06/27/20 18:58 04:19 20:24 Lactic Acid AST 75 H ALT 139 H Alkaline Phosphatase B-Natriuretic Peptide Creatine Kinase Lipase 8 SARS-CoV-2 (PCR) Not Detected Hepatitis A IgM Ab Hep Bs Antigen Hep B Core IgM Ab Hepatitis C Antibody 06/27/20 06/27/20 06/27/20 21:22 21:22 21:22 Lactic Acid 2.9 H AST 70 H ALT 135 H Alkaline Phosphatase B-Natriuretic Peptide Creatine Kinase 516 H Lipase SARS-CoV-2 (PCR) Hepatitis A IgM Ab Hep Bs Antigen Hep B Core IgM Ab Hepatitis C Antibody 06/28/20 06/29/20 06/29/20 04:34 05:32 05:32 Lactic Acid 1.5 AST 90 H ALT 155 H Alkaline Phosphatase 80 B-Natriuretic Peptide Creatine Kinase Lipase SARS-CoV-2 (PCR) Hepatitis A IgM Ab Non-Reactive Hep Bs Antigen Non-Reactive Hep B Core IgM Ab Non-Reactive Hepatitis C Antibody Non-Reactive EKG Reviewed by me: Yes (Tele - Sinus tachycardia) Hospitalist ROS - Medication Medications: Active Medications Generic Name Dose Route Start Last Admin Trade Name Freq PRN Reason Stop Dose Admin Acetaminophen 650 mg 06/27/20 06:41 06/28/20 23:34 Acetaminophen 325 Mg Tab PO 650 mg Q6H PRN Administration Headache/Fever or Pain Al Hydroxide/Mg Hydroxide 30 ml 06/29/20 00:34 06/29/20 08:51 Mag-Al 1200 Mg/1200 Mg/30 Ml Udcup PO 30 ml Q4H PRN Administration Heartburn or Indigestion Albuterol/Ipratropium 3 ml 06/26/20 22:30 06/29/20 11:05 Ipratropium/Albuterol Sulfate 3 Ml Neb NEB Not Given [id number] CRESCENCIO Aspirin 81 mg 06/27/20 09:00 06/29/20 08:06 Aspirin Chewable 81 Mg Tab PO Not Given DAILY CRESCENCIO Carvedilol 3.125 mg 06/28/20 17:00 06/29/20 08:01 Carvedilol 3.125 Mg Tab PO 3.125 mg BID-WM CRESCENCIO Administration Lidocaine HCl 20 ml/ Al 0 ml 06/29/20 09:30 06/29/20 10:10 Hydroxide/Mg Hydroxide 30 ml/ SSW 06/29/20 15:00 1 dose Atropine/Hyoscyam/Phenobarb/ ONE CRESCENCIO Administration Scopol 32.4 mg Enoxaparin Sodium 30 mg 06/27/20 09:00 06/29/20 08:13 Enoxaparin Sodium 30 Mg/0.3 Ml Syringe SC Not Given 0900 CRESCENCIO Ondansetron HCl 4 mg 06/27/20 13:04 06/28/20 23:34 Ondansetron Pf 4 Mg/2 Ml Vial IVP 4 mg Q6H PRN Administration Nausea/Vomiting Pantoprazole Sodium 40 mg 06/29/20 09:00 06/29/20 08:01 Pantoprazole 40 Mg Tab PO 40 mg BID CRESCENCIO Administration Polyethylene Glycol 17 gm 06/29/20 09:00 06/29/20 08:02 Polyethylene Glycol 3350 17 Gm Packet PO 17 gm DAILY CRESCENCIO Administration Sacubitril/Valsartan 1 tab 06/27/20 21:00 06/29/20 08:00 Sacubitril 24mg/Valsartan 26mg Tab PO 1 tab BID CRESCENCIO Administration Senna/Docusate Sodium 1 tab 06/28/20 21:00 06/29/20 08:01 Senokot S 8.6-50 Mg Tab PO 1 tab BID CRESCENCIO Administration Sodium Chloride 10 ml 06/28/20 21:00 06/29/20 08:03 Flush - Normal Saline 10 Ml Syringe IVF 10 ml Q12HR CRESCENCIO Administration Spironolactone 25 mg 06/29/20 08:00 06/29/20 08:01 Spironolactone 25 Mg Tab PO 25 mg QAM-WM CRESCENCIO Administration Sucralfate 1 gm 06/29/20 09:00 06/29/20 08:00 Sucralfate 1 Gm/10 Ml Udcup PO 1 gm QID CRESCENCIO Administration - Exam General Appearance: NAD, awake alert Eye: PERRL, anicteric sclera ENT: normocephalic atraumatic, no oropharyngeal lesions Neck: supple, symmetric, no JVD, no thyromegaly, no lymphadenopathy Heart: no gallops, no rubs, normal peripheral pulses Heart - other findings: S1, S2 tachycardic Respiratory: CTAB, no wheezes, no rales, no ronchi, normal chest expansion, no tachypnea Gastrointestinal: soft, non-distended, normal bowel sounds, no palpable masses, no guarding, no rigidity Gastrointestinal - other findings: mild TTP Extremities: no cyanosis, no clubbing, no edema Skin: normal turgor, no lesions Neurological: cranial nerve grossly intact, no new deficit Musculoskeletal: normal tone, generalized weakness Psychiatric: A&O x 3, flat affect Hosp A/P (1) Acute systolic CHF (congestive heart failure) Code(s): I50.21 - ACUTE SYSTOLIC (CONGESTIVE) HEART FAILURE Status: Acute Plan: Continue Entresto/Aldactone/Coreg (2) Abdominal pain Code(s): R10.9 - UNSPECIFIED ABDOMINAL PAIN Status: Acute Qualifiers: Abdominal location: generalized Qualified Code(s): R10.84 - Generalized abdominal pain Plan: Exact etiology unclear, likely due to constipation, continue bowel regimen, Maalox/Lidocaine PRN (3) Transaminitis Code(s): R74.01 - ELEVATION OF LEVELS OF LIVER TRANSAMINASE LEVELS Status: Acute Plan: Likely due to hepatic congestion secondary to CHF (4) HTN (hypertension) Code(s): I10 - ESSENTIAL (PRIMARY) HYPERTENSION Status: Chronic Qualifiers: Hypertension type: essential hypertension Qualified Code(s): I10 - Essential (primary) hypertension (5) COPD exacerbation Code(s): J44.1 - CHRONIC OBSTRUCTIVE PULMONARY DISEASE W (ACUTE) EXACERBATION Status: Acute Plan: Resolving, continue pulmonary support, 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
--- NOTE | 2020-06-29 13:43 | PRG ---
DATE OF SERVICE: 06/29/2020 SUBJECTIVE: This 70-year-old fragile looking, female hospitalized with heart failure. The patient has had a negative abdominal sonogram. Negative abdominal CAT scan and CT angiogram. The patient actually came with acute heart failure to be seen by Cardiology. She never had GI issues before. Had seen yesterday three times because of some abdominal pain and nausea. Last night, she was actually comfortable around 9 o'clock. This morning after she awoke, she was restless, complains of burning pain. She was seen along with the patient's . The tells me she has never had any GI procedure before. She is on multiple medications and the thinks that after she took the potassium pills, She is on multiple medications including antacids, Carafate, pantoprazole. She is also on MiraLAX for constipation along with senna and docusate sodium. She does take Aricept, Namenda, and Celexa at home. OBJECTIVE: GENERAL: She is a fragile looking female, appears to be in moderate distress, complaining of abdominal pain. VITAL SIGNS: Temperature 99.4 degrees Fahrenheit, pulse is 102, blood pressure is 123/78. CARDIOVASCULAR SYSTEM: Normal heart sounds. LUNGS: Clear to auscultation. ABDOMEN: Very benign on exam, soft, and nondistended. She has some pain over the epigastric area and also right upper quadrant. The exam remains unchanged from yesterday. PLAN: 1. We will give her a trial of Xanax 0.25 mg p.o. twice a day, which will help to calm her down. 2. If the pain persists, we may have to do an EGD. Job ID: [id number] MTDD
--- NOTE | 2020-06-29 15:51 | PRG ---
DATE OF SERVICE: 06/29/2020 SUBJECTIVE: Grey continues to have severe abdominal pain of uncertain etiology. She is up in the room walking around. Says it feels better when she walks. She is not having chest pain. She is not short of breath. OBJECTIVE: VITAL SIGNS: Blood pressure is 125/78, pulse 106 and sinus. LUNGS: Clear. CARDIAC: Normal S1 and S2. ABDOMEN: Soft, nontender, but she is having severe pain. EXTREMITIES: There is no edema. ASSESSMENT: 1. Congestive heart failure, probably cardiomyopathy, tolerating medicines. 2. Abdominal pain of unknown etiology. PLAN: 1. Continue Protonix. 2. She is on spironolactone. 3. Entresto. 4. Low-dose carvedilol. 5. We will stop aspirin at the present time. I think it is unlikely that this is coronary artery disease, may resume aspirin if her pain resolves. Job ID: [id number]
[2020-06-29] MEDS: Lidocaine 2% Viscous Solution 20 ML, Aluminum & Magnesium Hydroxide 30 ML, Donnatal Eli... SSW PRN ×2 (16:30→23:59)
[2020-06-29] MEDS: Ondansetron PF 4 MG/2 ML Vial IVP PRN (16:40)
--- NOTE | 2020-06-29 17:24 | CON ---
DATE OF CONSULTATION: 06/28/2020 REASON FOR CONSULTATION: Abdominal pain, nausea, and vomiting. HISTORY OF PRESENT ILLNESS: Ms. Michoacano Edmonds is a very fragile looking, elderly black female hospitalized with dyspnea over the last 3 to 4 days. The patient was found to have mildly elevated liver function tests _and has had abdominal sonogram and abdominal CAT scan. The CAT scan was noncontrast study. The exam was limited. The abdominal sonogram showed no gallstones and no liver masses seen. The patient has been seen by Dr. Janice Johnson for her heart failure. His impression is that she probably has mostly cardiomyopathy. The patient denies any prior history of any heart problem . She had no chest pain. At the time of evaluation, the patient appears very comfortable; in fact, she is dozing off and appears very comfortable. She denies abdominal pain, nausea, or vomiting. The patient has no fever. No hematemesis. No history of any melena. No rectal bleeding. Apparently, she has seen Dr. Rachid Tinsley in the past and had an EGD done in 2019. Apparently, this was done in [facility] and there was no information available in the [facility]. She denies any chest pain. There is no orthopnea or PND. She had no other relevant history. ALLERGIES: CODEINE, HYDROCODONE, AND IODINE AND IODIDE CONTAINING PRODUCTS. MEDICAL ILLNESSES: 1. Hypertension. 2. Gastritis. 3. Past history of breast cancer. 4. Thyroid cancer. 5. Peripheral neuropathy. PAST SURGICAL HISTORY: Hysterectomy. FAMILY HISTORY: Of hypertension. No family history of cancer, CVA, or heart disease. SOCIAL HISTORY: She is a never smoker. Occasional alcohol. No drug use. MEDICATIONS: Reviewed. REVIEW OF SYSTEMS: Ten-point system review. CONSTITUTIONAL: No history of fever. No weight loss. Had normal exercise tolerance until 3 to 4 days ago. HEAD: No chronic headache. No dizziness. EYES: No diplopia. No impaired vision. EARS: No hearing loss. NOSE: No nose bleed. No rhinorrhea. THROAT: No dysphagia or odynophagia. LUNGS: History of dyspnea over the last 3 to 4 days. No chronic coughing. No hemoptysis. CARDIOVASCULAR SYSTEM: No chest pain. Has a history of dyspnea on exertion. No palpitation. GI: Denies abdominal pain, nausea, vomiting, although there is h/o abdominal pain. Denies any hematemesis or melena. No diarrhea. : No dysuria, hematuria. NEUROMUSCULAR: Nonrelevant. NEUROPSYCHIATRY: Nonrelevant. PHYSICAL EXAMINATION: GENERAL: She is a very fragile looking, elderly black female, appears very comfortable. In fact, she is lying down on her back sleeping comfortably and I had to wake her up. She denies any pain at the present time. At least to me, she denies abdominal pain, chest discomfort, nausea, vomiting. VITAL SIGNS: Afebrile, pulse is 109, blood pressure is 137/84. HEENT: Conjunctivae are clear. NECK: Supple. No adenitis or thyromegaly noted. CARDIOVASCULAR SYSTEM: Normal heart sounds. No heart murmur. No rub. LUNGS: Clear to auscultation. ABDOMEN: Soft and nontender. No organomegaly. No masses. EXTREMITIES: Reveal no edema. LABORATORY DATA: On admission shows WBC count of 5800, hemoglobin 14, hematocrit 42.6, MCV is 87.2, platelet count 199,000, polymorphs 46, lymphocytes 43. Chemistry panel; sodium 138, potassium 3.5, chloride 103, bicarb 24, BUN is 15, creatinine 0.68, glucose 125, bilirubin 1.2, AST is 70, ALT 135, alkaline phosphatase 81. Abdominal sonogram shows no gallstones, but possibly has a gallbladder polyp. Abdominopelvic CTA, which revealed no AAA or any aortic dissection. She also has liver cyst. IMPRESSION: A 70-year-old female with the onset of heart failure. The etiology is unclear. Dr. Johnson has seen the patient for cardiology input and it was felt that she could have cardiomyopathy. 1. Hypertension. 2. Normal LFTs most likely hepatic congestive heart failure. 3. History of gastritis, has had EGD in 2019. . RECOMMENDATION: 1. Acute heart failure. 2. Follow up LFTs. 3. I will see the patient again later on today to see whether she has any recurrence of abdominal pain. Job ID: [id number] [facility]
[2020-06-29] MEDS: ALPRAZolam 0.25 MG TAB PO SCH (19:34)
[2020-06-30] MEDS: Lidocaine 2% Viscous Solution 20 ML, Aluminum & Magnesium Hydroxide 30 ML, Donnatal Eli... SSW PRN ×2 (03:48→09:04)
[2020-06-30] MEDS: Polyethylene Glycol 3350 17 GM Packet PO SCH (09:05)
[2020-06-30] MEDS: Sucralfate 1 GM/10 ML UDCUP PO SCH ×2 (09:05→21:09)
[2020-06-30] MEDS: Spironolactone 25 MG TAB PO SCH (09:06)
[2020-06-30] MEDS: Carvedilol 3.125 MG TAB PO SCH (09:06)
[2020-06-30] MEDS: Senokot S 8.6-50 MG TAB PO SCH ×2 (09:06→21:32)
[2020-06-30] MEDS: ALPRAZolam 0.25 MG TAB PO SCH ×2 (09:07→21:32)
--- NOTE | 2020-06-30 11:17 | PRG ---
DATE OF SERVICE: 06/30/2020 SUBJECTIVE: Ms. Edmonds seems to be somewhat better today. She said her abdomen hurts, but she indicates it is somewhat improved. She is not writhing in pain as she was yesterday. She said her chest feels sore. She is not having trouble breathing. OBJECTIVE: VITAL SIGNS: Her blood pressure 125/85, pulse is 100 to 106 and sinus tachycardia. LUNGS: Clear. CARDIAC: She is tachycardic. ABDOMEN: Soft, nontender. EXTREMITIES: Warm and dry. No clubbing. No cyanosis or edema. ASSESSMENT: 1. Congestive heart failure, systolic, acute on chronic, seems to be slowly improving, strongly suspect cardiomyopathy. 2. Sinus tachycardia. PLAN: 1. We will very slowly increase carvedilol dose. 2. Increase Entresto dose tomorrow. 3. Ultimately, cardiac catheterization. 4. Liver function tests remained somewhat elevated. I suspect this may be hepatic congestion, although it is not completely clear as she does not have edema. Continue to follow with you. Job ID: [id number]
--- NOTE | 2020-06-30 12:11 | PQF ---
CLINICAL DOCUMENTATION CLARIFICATION FORM: Dear Dr. Witt Date: 06/30/20 3700 Please exercise your independent, professional judgment in responding to the clarification form. Clinical indicators are provided on the bottom of this form for your review. Please check appropriate box(es): [ x ] Protein Calorie Malnutrition: [ ] Mild [ x ] Moderate [ ] Severe [ ] Other Malnutrition (please specify) [ ] Cachexia [ ] Other diagnosis [ ] Unable to determine In addition, please specify: Present on Admission (POA): [ x ] Yes [ ] No [ ] Unable to determine For continuity of documentation, please document condition throughout progress notes and discharge summary. Thank You. To be completed by CDI/Coding staff for physician review: CLINICAL INDICATORS - SIGNS / SYMPTOMS / LABS / RESULTS AND LOCATION IN MR RD Assessment: BMI 18.8; -10.9% x 1 year ; Nutrition Diagnosis Malnutrition Related to CHF vs aging process as Evidenced By mild temporalis and pectoralis muscle wasting, moderate orbital fat pad wasting suggestive of moderate malnutrition in the context of chronic illness. RISK FACTORS / RESULTS AND LOCATION IN MR Advanced age ( 70), Dx Acute Systolic Congestive Heart Failure, COPD Exacerbation ( JOSÉ/SILVINA) 06/29 TREATMENT / RESULTS AND LOCATION IN MR Dietary consult 06/27 Recommend Ensure Enlive Bid (RD) Moderate Malnutrition (in acute illness) Energy Intake: <75% of estimated energy requirement for > 7 days Weight Loss: 1-2%/1 week; 5%/ 1 month; 7.5%/3 months Other: mild body fat loss; mild muscle mass loss; mild fluid accumulation; Severe Malnutrition (in acute illness) Energy Intake: _ 50% of estimated energy requirement for _ 5 days Weight Loss: >2%/1 week; >5%/1 month; >7.5%/3 months Other: moderate body fat loss; moderate muscle mass loss; moderate- severe fluid accumulation; 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 CDS Signature: Leah Pires RN Phone #: [phone] Date: 06/30/20 This is a permanent part of the Medical Record [facility]
--- NOTE | 2020-06-30 12:24 | PDOC.HOSPP ---
- Subjective Encounter Date: 06/30/20 Encounter Time: 12:05 Subjective: f/u for persistent abd pain, transaminitis suspected from CHF and congestion. RUQ predominance but persists. No N/V currently. No BM. Minimal po intake of water but no food. - Objective Vital Signs & Weight: Vital Signs (12 hours) Temp Pulse Pulse Pulse Resp BP BP 06/30/20 10:52 102 H 20 06/30/20 09:14 105 H 108 H 131/91 H 125/87 06/30/20 08:00 99.5 F 99 20 06/30/20 03:45 98.1 F 104 H 22 H BP Pulse Ox 06/30/20 10:52 98 06/30/20 09:14 06/30/20 08:00 125/85 98 06/30/20 03:45 133/86 98 Weight Admit Weight 113 lb 9.6 oz Weight 112 lb 11.2 oz I&O: 06/29/20 06/30/20 07/01/20 06:59 06:59 06:59 Intake Total 360 170 Output Total 200 600 Balance 160 -430 Result Diagrams: 06/29/20 05:32 06/29/20 05:32 Additional Labs: Microbiology 06/27/20 23:36 Nasopharyngeal swab Respiratory Virus Panel (PCR) - Final Laboratory Tests 01/31/17 06/26/20 06/26/20 19:29 15:46 15:46 Lactic Acid AST 71 H ALT 124 H Alkaline Phosphatase B-Natriuretic Peptide 150.9 H 2005.9 H Creatine Kinase Lipase SARS-CoV-2 (PCR) Hepatitis A IgM Ab Hep Bs Antigen Hep B Core IgM Ab Hepatitis C Antibody 06/26/20 06/27/20 06/27/20 18:58 04:19 20:24 Lactic Acid AST 75 H ALT 139 H Alkaline Phosphatase B-Natriuretic Peptide Creatine Kinase Lipase 8 SARS-CoV-2 (PCR) Not Detected Hepatitis A IgM Ab Hep Bs Antigen Hep B Core IgM Ab Hepatitis C Antibody 06/27/20 06/27/20 06/27/20 21:22 21:22 21:22 Lactic Acid 2.9 H AST 70 H ALT 135 H Alkaline Phosphatase B-Natriuretic Peptide Creatine Kinase 516 H Lipase SARS-CoV-2 (PCR) Hepatitis A IgM Ab Hep Bs Antigen Hep B Core IgM Ab Hepatitis C Antibody 06/28/20 06/29/20 06/29/20 04:34 05:32 05:32 Lactic Acid 1.5 AST 90 H ALT 155 H Alkaline Phosphatase 80 B-Natriuretic Peptide Creatine Kinase Lipase SARS-CoV-2 (PCR) Hepatitis A IgM Ab Non-Reactive Hep Bs Antigen Non-Reactive Hep B Core IgM Ab Non-Reactive Hepatitis C Antibody Non-Reactive EKG Reviewed by me: Yes (Tele - SR) Hospitalist ROS - Medication Medications: Active Medications Generic Name Dose Route Start Last Admin Trade Name Freq PRN Reason Stop Dose Admin Acetaminophen 650 mg 06/27/20 06:41 06/28/20 23:34 Acetaminophen 325 Mg Tab PO 650 mg Q6H PRN Administration Headache/Fever or Pain Al Hydroxide/Mg Hydroxide 30 ml 06/29/20 00:34 06/29/20 08:51 Mag-Al 1200 Mg/1200 Mg/30 Ml Udcup PO 30 ml Q4H PRN Administration Heartburn or Indigestion Albuterol/Ipratropium 3 ml 06/26/20 22:30 06/30/20 10:52 Ipratropium/Albuterol Sulfate 3 Ml Neb NEB 3 ml [id number] CRESCENCIO Administration Alprazolam 0.25 mg 06/29/20 21:00 06/30/20 09:07 Alprazolam 0.25 Mg Tab PO 0.25 mg BID CRESCENCIO Administration Lidocaine HCl 20 ml/ Al 0 ml 06/29/20 14:24 06/30/20 09:04 Hydroxide/Mg Hydroxide 30 ml/ SSW 59 dose Atropine/Hyoscyam/Phenobarb/ Q4H PRN Administration Scopol 32.4 mg SORE THROAT Enoxaparin Sodium 30 mg 06/27/20 09:00 06/29/20 08:13 Enoxaparin Sodium 30 Mg/0.3 Ml Syringe SC Not Given 0900 CRESCENCIO Ondansetron HCl 4 mg 06/27/20 13:04 06/29/20 16:40 Ondansetron Pf 4 Mg/2 Ml Vial IVP 4 mg Q6H PRN Administration Nausea/Vomiting Pantoprazole Sodium 40 mg 06/29/20 09:00 06/30/20 09:05 Pantoprazole 40 Mg Tab PO 40 mg BID CRESCENCIO Administration Polyethylene Glycol 17 gm 06/29/20 09:00 06/30/20 09:05 Polyethylene Glycol 3350 17 Gm Packet PO 17 gm DAILY CRESCENCIO Administration Sacubitril/Valsartan 1 tab 06/27/20 21:00 06/30/20 09:04 Sacubitril 24mg/Valsartan 26mg Tab PO 1 tab BID CRESCENCIO Administration Senna/Docusate Sodium 1 tab 06/28/20 21:00 06/30/20 09:06 Senokot S 8.6-50 Mg Tab PO 1 tab BID CRESCENCIO Administration Sodium Chloride 10 ml 06/28/20 21:00 06/30/20 09:07 Flush - Normal Saline 10 Ml Syringe IVF 10 ml Q12HR CRESCENCIO Administration Spironolactone 25 mg 06/29/20 08:00 06/30/20 09:06 Spironolactone 25 Mg Tab PO 25 mg QAM-WM CRESCENCIO Administration Sucralfate 1 gm 06/29/20 09:00 06/30/20 09:05 Sucralfate 1 Gm/10 Ml Udcup PO 1 gm QID CRESCENCIO Administration - Exam General Appearance: ill appearing General - other findings: grimacing Eye: PERRL, anicteric sclera ENT: normocephalic atraumatic, no oropharyngeal lesions Neck: supple, symmetric, no JVD, no thyromegaly, no lymphadenopathy Heart: RRR, no gallops, no rubs, normal peripheral pulses Heart - other findings: S1, S2 Respiratory: CTAB, no wheezes, no rales, no ronchi, normal chest expansion Gastrointestinal: soft, non-distended, normal bowel sounds Gastrointestinal - other findings: TTP in RUQ, mild guarding Extremities: no cyanosis, no clubbing, no edema Skin: normal turgor, no lesions Neurological: cranial nerve grossly intact, no new deficit Musculoskeletal: normal tone, generalized weakness Psychiatric: A&O x 3, flat affect Hosp A/P (1) Acute systolic CHF (congestive heart failure) Code(s): I50.21 - ACUTE SYSTOLIC (CONGESTIVE) HEART FAILURE Status: Acute Plan: EF 15%, continue Entresto/Coreg/Aldactone (2) Abdominal pain Code(s): R10.9 - UNSPECIFIED ABDOMINAL PAIN Status: Acute Qualifiers: Abdominal location: generalized Qualified Code(s): R10.84 - Generalized abdominal pain Plan: Localizing to RUQ, repeat ABD sono with attention to RUQ, sips of H2O, may need endoscopy (3) Transaminitis Code(s): R74.01 - ELEVATION OF LEVELS OF LIVER TRANSAMINASE LEVELS Status: Acute Plan: Secondary to hepatic congestion due to CHF (4) HTN (hypertension) Code(s): I10 - ESSENTIAL (PRIMARY) HYPERTENSION Status: Chronic Qualifiers: Hypertension type: essential hypertension Qualified Code(s): I10 - Essential (primary) hypertension - Plan 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
[2020-06-30 13:11] LABS: ALT (SGPT) 127 U/L (8-55); AST (SGOT) 56 U/L (5-34); Albumin 3.5 g/dL (3.4-4.8); Alkaline Phosphatase 73 U/L (40-110); Anion Gap 12 mmol/L (10-20); BUN (Urea Nitrogen) 30 mg/dL (9.8-20.1); Bilirubin, Total 1.7 mg/dL (0.2-1.2); Calc. Creatinine Clearance 59 mL/min (70-130); Calcium 8.1 mg/dL (7.8-10.44); Carbon Dioxide 27 mmol/L (23-31); Chloride 100 mmol/L (98-107); Estimated GFR-MDRD Greater than 90; Globulin 2.4 g/dL (2.4-3.5); Glucose 99 mg/dL (80-115); Lipase 23 U/L (8-78); Potassium 3.6 mmol/L (3.5-5.1); Protein, Total 5.9 g/dL (6.0-8.3); Sodium 135 mmol/L (136-145)
--- NOTE | 2020-06-30 14:08 | ULT ---
ABDOMINAL ULTRASOUND: HISTORY: Abdominal pain. FINDINGS: Images of the gallbladder show no definite gallstone. Gallbladder wall thickness is normal. The com mon duct is normal caliber. Liver is mildly heterogeneous; however, no focal liver mass identified. The spleen is unremarkable. The abdominal aorta and IVC appear unremarkable where visualized. The pancreas is mostly obscured but unremarkable where visualized. Kidneys are unremarkable. IMPRESSION: Unremarkable abdominal ultrasound. POS: AH
[2020-06-30] MEDS ORDERED: Ketamine 50 MG/ML (10ML VIAL) ONE (14:42)
[2020-06-30] MEDS ORDERED: Midazolam HCl 2 mg/2 ml Vial IVP SCH (15:05)
[2020-06-30] MEDS ORDERED: Promethazine HCl 25 MG/ML VIAL IM PRN (15:08)
[2020-06-30] MEDS ORDERED: Ondansetron HCl/PF 4 MG/2 ML Vial IVP PRN (15:08)
[2020-06-30] MEDS ORDERED: Promethazine HCl 25 MG/ML VIAL SLOW IVP PRN (15:08)
[2020-06-30] MEDS ORDERED: Midazolam HCl 2 mg/2 ml Vial ONE (15:10)
--- NOTE | 2020-06-30 16:01 | OP ---
DATE OF PROCEDURE: 06/30/2020 PROCEDURE PERFORMED: Esophagogastroduodenoscopy. PREOPERATIVE DIAGNOSIS: Right upper quadrant abdominal pain. DESCRIPTION OF PROCEDURE: Informed consent was obtained from the patient. The patient was sedated with total intravenous anesthesia. The bite block was placed and the endoscope was advanced easily to the second portion of the duodenum and retroflexion was performed in the stomach. The esophagus was normal. The GE junction was normal. There was a concentric narrowing in the mid body of the stomach, but no focal lesion here. There was some minimal erythematous gastritis in the body of the stomach. The antrum and pylorus and first and second portions of the duodenum were normal. IMPRESSION: 1. Minimal erythematous gastritis in the body of the stomach. 2. Slight narrowing in the mid body of the stomach with no obvious abnormality in this area by CT scan. She did not have oral contrast with the CT. 3. I would favor hepatic congestion with distention of the liver capsule as the primary source for her right upper quadrant pain. RECOMMENDATIONS: 1. Continue proton pump inhibitor for now. 2. We will continue to assess her the progression of her pain. If she shows signs of nausea and vomiting to go along with pain in the future, then consider repeating the CT of the abdomen and pelvis with oral and IV contrast. I would hold off for this for now if her pain improves. There is no hiatal hernia by CT scan or endoscopy. Job ID: [id number] MTDD
[2020-06-30] MEDS: Carvedilol 6.25 MG TAB PO SCH (18:08)
[2020-06-30] MEDS: Enoxaparin Sodium 30 MG/0.3 ML SYRINGE SC SCH (18:08)
[2020-07-01] MEDS: Enoxaparin Sodium 30 MG/0.3 ML SYRINGE SC SCH (09:08)
[2020-07-01] MEDS: Polyethylene Glycol 3350 17 GM Packet PO SCH (09:09)
[2020-07-01] MEDS: Senokot S 8.6-50 MG TAB PO SCH ×2 (09:09→21:59)
[2020-07-01] MEDS: ALPRAZolam 0.25 MG TAB PO SCH (09:09)
[2020-07-01] MEDS: Carvedilol 6.25 MG TAB PO SCH (09:36)
[2020-07-01] MEDS: Spironolactone 25 MG TAB PO SCH (09:37)
--- NOTE | 2020-07-01 11:55 | PDOC.HOSPP ---
- Subjective Encounter Date: 07/01/20 Encounter Time: 10:50 Subjective: f/u for CHF/cardiomyopathy currently tx with Entresto. Abd pain improved and EGD/abd sono essentially negative. Feels better overall and tolerating po intake. - Objective Vital Signs & Weight: Vital Signs (12 hours) Temp Pulse Resp BP BP Pulse Ox 07/01/20 11:31 98 F 85 16 104/69 98 07/01/20 11:04 83 16 98 07/01/20 09:36 91/64 07/01/20 08:00 98.4 F 90 15 91/64 98 07/01/20 07:00 89 20 95 07/01/20 03:31 98.3 F 88 16 99/60 99 07/01/20 02:01 16 Weight Admit Weight 113 lb 9.6 oz Weight 111 lb I&O: 06/30/20 07/01/20 07/02/20 06:59 06:59 06:59 Intake Total 170 220 240 Output Total 600 300 Balance -430 -80 240 Result Diagrams: 06/29/20 05:32 06/30/20 12:48 Additional Labs: Microbiology 06/27/20 23:36 Nasopharyngeal swab Respiratory Virus Panel (PCR) - Final Laboratory Tests 01/31/17 06/26/20 06/26/20 19:29 15:46 15:46 Lactic Acid AST 71 H ALT 124 H Alkaline Phosphatase B-Natriuretic Peptide 150.9 H 2005.9 H Creatine Kinase Lipase SARS-CoV-2 (PCR) Hepatitis A IgM Ab Hep Bs Antigen Hep B Core IgM Ab Hepatitis C Antibody 06/26/20 06/27/20 06/27/20 18:58 04:19 20:24 Lactic Acid AST 75 H ALT 139 H Alkaline Phosphatase B-Natriuretic Peptide Creatine Kinase Lipase 8 SARS-CoV-2 (PCR) Not Detected Hepatitis A IgM Ab Hep Bs Antigen Hep B Core IgM Ab Hepatitis C Antibody 06/27/20 06/27/20 06/27/20 21:22 21:22 21:22 Lactic Acid 2.9 H AST 70 H ALT 135 H Alkaline Phosphatase B-Natriuretic Peptide Creatine Kinase 516 H Lipase SARS-CoV-2 (PCR) Hepatitis A IgM Ab Hep Bs Antigen Hep B Core IgM Ab Hepatitis C Antibody 06/28/20 06/29/20 06/29/20 04:34 05:32 05:32 Lactic Acid 1.5 AST 90 H ALT 155 H Alkaline Phosphatase 80 B-Natriuretic Peptide Creatine Kinase Lipase SARS-CoV-2 (PCR) Hepatitis A IgM Ab Non-Reactive Hep Bs Antigen Non-Reactive Hep B Core IgM Ab Non-Reactive Hepatitis C Antibody Non-Reactive Radiology Reviewed by me: Yes (EGD - minimal gastritis) EKG Reviewed by me: Yes (Tele - SR) Hospitalist ROS - Medication Medications: Active Medications Generic Name Dose Route Start Last Admin Trade Name Freq PRN Reason Stop Dose Admin Acetaminophen 650 mg 06/27/20 06:41 06/28/20 23:34 Acetaminophen 325 Mg Tab PO 650 mg Q6H PRN Administration Headache/Fever or Pain Al Hydroxide/Mg Hydroxide 30 ml 06/29/20 00:34 06/29/20 08:51 Mag-Al 1200 Mg/1200 Mg/30 Ml Udcup PO 30 ml Q4H PRN Administration Heartburn or Indigestion Albuterol/Ipratropium 3 ml 06/26/20 22:30 07/01/20 11:04 Ipratropium/Albuterol Sulfate 3 Ml Neb NEB 3 ml [id number] CRESCENCIO Administration Alprazolam 0.25 mg 06/29/20 21:00 07/01/20 09:09 Alprazolam 0.25 Mg Tab PO 0.25 mg BID CRESCENCIO Administration Lidocaine HCl 20 ml/ Al 0 ml 06/29/20 14:24 06/30/20 09:04 Hydroxide/Mg Hydroxide 30 ml/ SSW 59 dose Atropine/Hyoscyam/Phenobarb/ Q4H PRN Administration Scopol 32.4 mg SORE THROAT Enoxaparin Sodium 30 mg 06/27/20 09:00 07/01/20 09:08 Enoxaparin Sodium 30 Mg/0.3 Ml Syringe SC 30 mg 0900 CRESCENCIO Administration Ondansetron HCl 4 mg 06/27/20 13:04 06/29/20 16:40 Ondansetron Pf 4 Mg/2 Ml Vial IVP 4 mg Q6H PRN Administration Nausea/Vomiting Pantoprazole Sodium 40 mg 06/29/20 09:00 07/01/20 09:09 Pantoprazole 40 Mg Tab PO 40 mg BID CRESCENCIO Administration Polyethylene Glycol 17 gm 06/29/20 09:00 07/01/20 09:09 Polyethylene Glycol 3350 17 Gm Packet PO 17 gm DAILY CRESCENCIO Administration Sacubitril/Valsartan 1 tab 06/27/20 21:00 07/01/20 11:07 Sacubitril 24mg/Valsartan 26mg Tab PO 1 tab BID CRESCENCIO Administration Senna/Docusate Sodium 1 tab 06/28/20 21:00 07/01/20 09:09 Senokot S 8.6-50 Mg Tab PO 1 tab BID CRESCENCIO Administration Sodium Chloride 10 ml 06/28/20 21:00 07/01/20 11:08 Flush - Normal Saline 10 Ml Syringe IVF 10 ml Q12HR CRESCENCIO Administration Spironolactone 25 mg 06/29/20 08:00 07/01/20 09:37 Spironolactone 25 Mg Tab PO Not Given QAM- CRESCENCIO - Exam General Appearance: NAD, awake alert Eye: PERRL, anicteric sclera ENT: normocephalic atraumatic, no oropharyngeal lesions Neck: supple, symmetric, no JVD, no thyromegaly, no lymphadenopathy Heart: RRR, no gallops, no rubs, normal peripheral pulses Heart - other findings: S1, S2 Respiratory: CTAB, no wheezes, no rales, no ronchi, normal chest expansion, no tachypnea Gastrointestinal: soft, non-tender, non-distended, normal bowel sounds, no palpable masses Extremities: no cyanosis, no clubbing, no edema Skin: normal turgor, no lesions Neurological: cranial nerve grossly intact, no new deficit Musculoskeletal: normal tone, generalized weakness, diffuse muscle atrophy Psychiatric: A&O x 3, flat affect Hosp A/P (1) Acute systolic CHF (congestive heart failure) Code(s): I50.21 - ACUTE SYSTOLIC (CONGESTIVE) HEART FAILURE Status: Acute Plan: Stable currently, continue Entresto/Coreg/Aldactone (2) Abdominal pain Code(s): R10.9 - UNSPECIFIED ABDOMINAL PAIN Status: Acute Qualifiers: Abdominal location: generalized Qualified Code(s): R10.84 - Generalized abdominal pain Plan: Likely combination of hepatic congestion with constipation, supportive mgmt, laxatives/stool softeners (3) Transaminitis Code(s): R74.01 - ELEVATION OF LEVELS OF LIVER TRANSAMINASE LEVELS Status: Acute Plan: Secondary to hepatic congestion due to CHF (4) HTN (hypertension) Code(s): I10 - ESSENTIAL (PRIMARY) HYPERTENSION Status: Chronic Qualifiers: Hypertension type: essential hypertension Qualified Code(s): I10 - Es sential (primary) hypertension - Plan 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
--- NOTE | 2020-07-01 12:58 | PRG ---
DATE OF SERVICE: 07/01/2020 SUBJECTIVE: Ms. Edmonds continues to complain of abdominal pain, which is generalized. She is not short of breath. She can lay flat comfortably. She has no chest pain. OBJECTIVE: VITAL SIGNS: Her blood pressure is just over 100 systolic now. It was in the 90s systolic earlier today. Pulse is 104 currently. LUNGS: Clear. CARDIAC: Normal S1, normal S2. There is no murmur, rub, or gallop, but she is tachycardic for rest with a heart rate just about 100. ABDOMEN: She is soft and nontender. The right upper quadrant is nontender. No specific etiology of her severe abdominal pain has been found on GI evaluation. Dr. Barillas thinks it could potentially be hepatic congestion, but her neck veins are not distended now. She is not tender in her right upper quadrant. It is really not clear what is causing her pain. The patient looks dry clinically. LABORATORY DATA: BNP is not lower, in fact, it is higher than it was 5 days ago. ASSESSMENT: 1. Congestive heart failure, very likely nonischemic cardiomyopathy, severe global hypokinesis. 2. Increase liver function tests, possibly hepatic congestion. The liver function tests are slightly improved. 3. Decrease in blood pressure with increase carvedilol dose. PLAN: 1. Go back to the carvedilol 3.125 mg twice a day. 2. Increase Entresto dose tonight. Continue medical therapy. Job ID: [id number]
[2020-07-01] MEDS ORDERED: Magnesium Citrate 300 ML BOT PO SCH (16:00)
--- NOTE | 2020-07-01 16:10 | PRG ---
DATE OF SERVICE: 07/01/2020 SUBJECTIVE: Ms. Edmonds was feeling quite a bit better earlier this morning, but this afternoon, she is having a lot of recurrent upper abdominal pain. It is primarily in the right side, but really involves the entire upper abdomen. She describes it as a cramping and squeezing sensation. She is tolerating her diet with no vomiting, but she says she feels as if she needs to have a bowel movement. She cannot recall when her last bowel movement was. MiraLAX is ordered. OBJECTIVE: VITAL SIGNS: Temperature 98.0, pulse 96, blood pressure 104/69, 98% oxygen saturation on room air. GENERAL: A 70-year-old woman, lying in bed in [id number] distress from abdominal discomfort. HEART: Regular rate and rhythm. LUNGS: Clear to auscultation bilaterally. ABDOMEN: Nondistended. Bowel sounds are present. Diffuse tenderness to palpation throughout, but no guarding or rebound tenderness. EXTREMITIES: No peripheral edema. LABORATORY STUDIES: BNP elevated to 2846.1. Total bilirubin 1.7, alkaline phosphatase 73, AST 56, ALT 127. BUN 30, creatinine 0.72. Viral hepatitis serologies all negative. ASSESSMENT/PLAN: 1. Right upper quadrant pain. 2. Upper abdominal pain. 3. Constipation. 4. Severe congestive heart failure. I reviewed the patient's essentially negative gastrointestinal workup which has included 2 abdominal ultrasounds, CT angiogram which included the abdomen on admission, and now essentially normal EGD yesterday. Dr. Brink's impression was that her pain may be secondary to stretching of the liver capsule from her severe heart failure, and I agree that this is most likely. She is describing constipation, so I wonder how much better she would feel if she had a good bowel movement. We will go ahead and give her a bottle of magnesium citrate this evening. If she has good results with this and pain is not significantly improved, could consider repeating the CT of the abdomen and pelvis with oral and IV contrast, but would hold off on that today. Job ID: [id number]
[2020-07-01] MEDS ORDERED: Carvedilol 3.125 MG TAB PO SCH (17:00)
[2020-07-01] MEDS ORDERED: Midodrine HCl 5 MG TAB PO SCH (19:45)
[2020-07-01 20:11] LABS: Hemoglobin 15.6 g/dL (12.0-16.0); Mean Corpuscular HGB CONC 32.6 g/dL (32.0-36.0); Mean Corpuscular Hemoglobin 28.7 pg (27.0-31.0); Mean Platelet Volume 9.6 fL (7.4-10.4); Platelet Count 188 thou/uL (130-400); RBC Distribution Width 13.8 % (11.5-14.5); Red Blood Cell (RBC) Count 5.45 mill/uL (4.20-5.40)
[2020-07-01] MEDS: DOBUTamine 500 mg/250 ml 250 ML IVPB SCH (20:12)
[2020-07-01 20:22] LABS: ALT (SGPT) 92 U/L (8-55); AST (SGOT) 31 U/L (5-34); Albumin 3.1 g/dL (3.4-4.8); Alkaline Phosphatase 71 U/L (40-110); Anion Gap 10 mmol/L (10-20); BUN (Urea Nitrogen) 28 mg/dL (9.8-20.1); Bilirubin, Total 0.7 mg/dL (0.2-1.2); Calc. Creatinine Clearance 49 mL/min (70-130); Carbon Dioxide 27 mmol/L (23-31); Chloride 102 mmol/L (98-107); Estimated GFR-MDRD 80; Globulin 2.3 g/dL (2.4-3.5); Glucose 178 mg/dL (80-115); Lipase 65 U/L (8-78); Magnesium 2.2 mg/dL (1.6-2.6); Potassium 3.3 mmol/L (3.5-5.1); Protein, Total 5.4 g/dL (6.0-8.3); Sodium 136 mmol/L (136-145)
[2020-07-01 20:27] LABS: INR-International Normal Ratio 1.2; PTT 26.1 sec (22.9-36.1); Prothrombin Time 15.4 sec (12.0-14.7)
[2020-07-01 20:33] LABS: #Basophils 0.1 thou/uL (0.0-0.2); #Lymphocytes 2.3 thou/uL (1.20-3.40); #Monocytes 0.6 thou/uL (0.11-0.59); #Neutrophils 3.3 thou/uL (1.40-6.50); %Basophils 1.1 % (0.0-1.0); %Eosinophils 0.4 % (0.0-10.0); %Lymphocytes 37.1 % (21.0-51.0); %Monocytes 9.6 % (0.0-10.0); %Neutrophils 51.9 % (42.0-75.0); Lymphocytes 30 % (21-51); MDiff Complete? YES; Monocytes 13 % (0-10); Neutrophil 55 % (42-75); Platelet Morphology Comment Appears Adequate; RBC Morphology Normal; Reactive Lymphocytes 2 % (0-10)
[2020-07-01 20:48] LABS: Lactic Acid 2.8 mmol/L (0.5-2.2)
[2020-07-01] MEDS: DOPamine 400 MG/D5W 250 ML 250 ML IVPB SCH (21:59)
--- NOTE | 2020-07-01 22:20 | PDOC.CNTRL ---
Central Line Procedure Note - Procedure Date: 07/01/20 Time: 21:00 - PreProcedure Diagnosis: HFrEF exacerbation - PostProcedure Diagnosis: HFrEF exacerbation - Description Focused site: femoral vein: Left Ultrasound guidance: Yes Patient tolerated procedure: no complications Procedure in Details: INDICATION:Hypotension PROCEDURE SEO MARKETING SPECIALIST: Yolanda Pugh MD ATTENDING PHYSICIAN: Husam Pierson MD was present and gowned Ultrasound Used: Y CONSENT: Consent was obtained from the patient prior to the procedure. Indications, risks, and benefits were explained at length. PROCEDURE SUMMARY: Consent obtained. A time out was performed. My hands were washed immediately prior to the procedure. I wore a surgical cap, mask with protective eyewear, sterile gown and sterile gloves throughout the procedure. The left inguinal region was prepped using chlorhexidine scrub and draped in sterile fashion using a full drape and sterile probe cover employed. The femoral pulse was identified. Anesthesia was achieved using 1% lidocaine. Using ultrasound guidance, the introducer needle was inserted medial to the femoral artery, inferior to the inguinal crease and into the femoral vein. Venous blood was withdrawn. The syringe was removed and a guidewire was advanced into the introducer needle. A small incision was made at the skin surface with a scalpel and the introducer needle was exchanged for a dilator over the guidewire. After appropriate dilation was obtained, the dilator was exchanged over the wire for a triple lumen central venous catheter. The wire was removed and the catheter was sutured in place. A sterile shield was placed over the catheter at the insertion site. The patient tolerated the procedure without any hemodynamic compromise. At time of procedure completion, all ports aspirated and flushed properly. Estimated blood loss is < 10 cc. Addendum - Attending - Attending Attestation Date/Time: 07/02/202130 I was present for the entire procedure.
--- NOTE | 2020-07-02 00:26 | PDOC.EVN ---
Event Note - Event Note Event Note: BP dropped to 75/50. C/O abd pain Not SOB will give 250 NS X 1 If not responding Transfer to CCU , central line to be placed and start pressors, Discussed w patient daughter
[2020-07-02] MEDS: ALPRAZolam 0.25 MG TAB PO SCH ×3 (00:55→20:36)
[2020-07-02 03:48] LABS: ALT (SGPT) Less than 7 U/L (8-55); AST (SGOT) 30 U/L (5-34); Albumin 2.3 g/dL (3.4-4.8); Alkaline Phosphatase 51 U/L (40-110); Anion Gap 15 mmol/L (10-20); BUN (Urea Nitrogen) 63 mg/dL (9.8-20.1); Bilirubin, Total 0.5 mg/dL (0.2-1.2); Calc. Creatinine Clearance 19 mL/min (70-130); Calcium 8.1 mg/dL (7.8-10.44); Carbon Dioxide 23 mmol/L (23-31); Chloride 101 mmol/L (98-107); Estimated GFR-MDRD 26; Globulin 2.4 g/dL (2.4-3.5); Glucose 134 mg/dL (80-115); Potassium 4.4 mmol/L (3.5-5.1); Protein, Total 4.7 g/dL (6.0-8.3); Sodium 135 mmol/L (136-145)
--- NOTE | 2020-07-02 08:06 | CON ---
DATE OF CONSULTATION: 07/02/2020 This encompassed a 50 minutes time, of that time, greater than 50% of time spent with the patient and/or the patient's unit in the hospital. REASON FOR CONSULTATION: Low blood pressure. HISTORY OF PRESENT ILLNESS: The patient is a pleasant 70-year-old female, who was initially admitted to the hospital on 06/26/2020 by the [facility]ist Group. She was transferred to the ICU last night because of hypotension, which appears due to chronic systolic heart failure. Her original complaint at the time of admission was shortness of breath, that has improved. She is currently on dopamine and dobutamine drips and has no acute complaints. PAST MEDICAL HISTORY: 1. Hypertension. 2. Gastritis. PAST SURGICAL HISTORY: Hysterectomy and partial meniscectomy. SOCIAL HISTORY: Nonsmoker. Does not consume alcohol. 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 ALLERGIES: CODEINE, HYDROCODONE, AND IODINE. MEDICATIONS: Prior to admission; 1. Aricept 5 mg daily. 2. Celexa 10 mg daily. 3. Namenda 5 mg daily. Current inpatient medications, these were reviewed, please see chart. REVIEW OF SYSTEMS: Twelve-point review of systems otherwise negative. PHYSICAL EXAMINATION: VITAL SIGNS: Temperature 98.2, pulse 109, blood pressure 93/62, and O2 saturation 96% room air. GENERAL: She is awake and alert, in no distress. HEENT: Pupils are reactive. Sclerae anicteric. Oropharynx clear. NECK: No adenopathy or JVD. LUNGS: Clear to auscultation. CARDIOVASCULAR: S1 and S2. Regular with a left ventricular heave. ABDOMEN: Soft and nontender to palpation. EXTREMITIES: No clubbing, cyanosis, or edema. Peripheral pulses are 2+/4 throughout. LABORATORY DATA: Sodium 135, potassium 4.4, chloride 101, CO2 of 23, BUN 63, creatinine 2.2, and glucose 134. White blood count 6.0, hematocrit 48, and platelet count 188. ASSESSMENT: Hypotension secondary to acute on chronic systolic heart failure with EF of 15%. The patient also has severe mitral regurgitation. RECOMMENDATIONS: 1. Vasopressors and inotropes per Cardiology. 2. Given the bump in the creatinine, I would recommend either stopping or cutting back on the patient's diuretic. I will leave this to Cardiology and Internal Medicine. 3. We will be happy to follow with you while she is here, but right now, there is no acute pulmonary concern. Job ID: [id number]
[2020-07-02] MEDS: Senokot S 8.6-50 MG TAB PO SCH ×2 (08:21→20:36)
[2020-07-02] MEDS: Spironolactone 25 MG TAB PO SCH (08:22)
[2020-07-02] MEDS: Enoxaparin Sodium 30 MG/0.3 ML SYRINGE SC SCH (08:22)
[2020-07-02] MEDS: Polyethylene Glycol 3350 17 GM Packet PO SCH (08:23)
[2020-07-02] MEDS ORDERED: Sodium Chloride 0.9% 500 ML IV SCH (09:15)
--- NOTE | 2020-07-02 09:27 | RAD ---
EXAM: Single view of the chest HISTORY: CHF COMPARISON: 06/27/2020 FINDINGS: Single view of the chest shows an enlarged but stable cardiomediastinal silhouette. Athero sclerotic calcifications are seen in the aorta. There is no evidence of consolidation, mass, or pleural effusion. No acute osseous abnormality. Surgical clips are seen in the right axilla. IMPRESSION: No evidence of acute cardiopulmonary disease
--- NOTE | 2020-07-02 09:35 | PRG ---
DATE OF SERVICE: 07/02/2020 SUBJECTIVE: Ms. Edmonds as outlined in the chart, had clinical deterioration last night, had to be moved to the intensive care unit. The patient this morning is on dopamine and dobutamine. Her blood pressure is 90 systolic. Her heart rate is 110. She said overall, her abdomen is slightly better. OBJECTIVE: VITAL SIGNS: Clear. CARDIAC: She is tachycardic for rest. ABDOMEN: Soft, nontender. EXTREMITIES: Warm and dry. No clubbing. No cyanosis or edema. LABORATORY DATA: Her kidney functions deteriorated, it was 0.85 when elevated 2.22. The only diuretic she was taking was spironolactone 25 mg a day. She was on no loop diuretics. ASSESSMENT: 1. Severe congestive heart failure with severely depressed left ventricular function. 2. Ejection fraction is 15% with severe mitral regurgitation, externally, suspect this is a cardiomyopathy. PLAN: 1. She is on dopamine or dobutamine. 2. We will give a fluid bolus of 500 mL over 5 hours. She is probably somewhat volume depleted. 3. Prognosis is guarded. Options appear limited. Interestingly, her liver function tests have improved, so the hepatic congestion may be somewhat better if that is a source of her abdominal pain, but her overall situation is deteriorated. Job ID: [id number]
[2020-07-02] MEDS: DOBUTamine 500 mg/250 ml 250 ML IVPB SCH (09:54)
[2020-07-02] MEDS: DOPamine 400 MG/D5W 250 ML 250 ML IVPB SCH (09:54)
--- NOTE | 2020-07-02 15:57 | PDOC.HOSPP ---
- Subjective Encounter Date: 07/02/20 Encounter Time: 15:45 Subjective: f/u for CHF with severe cardiomyopathy and hypotensive episode overnight requiring transfer to CCU and pressor support with Dopamine/Dobutamine. Currently pt stating she is hungry and wants to eat. - Objective Vital Signs & Weight: Vital Signs (12 hours) Temp Pulse Pulse Pulse Pulse Resp BP 07/02/20 14:27 91 18 07/02/20 12:00 97.7 F 07/02/20 11:03 93 24 H 07/02/20 10:11 107 H 97 111 H 82/65 L 07/02/20 08:00 98.5 F 07/02/20 07:15 113 H 25 H 07/02/20 04:00 98.2 F BP BP Pulse Ox Pulse Ox Pulse Ox Pulse Ox 07/02/20 14:27 99 07/02/20 12:00 07/02/20 11:03 98 07/02/20 10:11 101/64 86/66 L 98 98 98 07/02/20 08:00 97 07/02/20 07:15 96 07/02/20 04:00 Weight Admit Weight 113 lb 9.6 oz Weight 114 lb 3.191 oz Most Recent Monitor Data Heart Rate from ECG 90 NIBP 94/59 NIBP BP-Mean 70 Respiration from ECG 19 SpO2 98 I&O: 07/01/20 07/02/20 07/03/20 06:59 06:59 06:59 Intake Total 220 1666 320 Output Total 300 1275 450 Balance -80 391 -130 Result Diagrams: 07/01/20 19:31 07/02/20 02:25 Additional Labs: Accuchecks 07/01/20 19:30 POC Glucose 176 H Microbiology 06/27/20 23:36 Nasopharyngeal swab Respiratory Virus Panel (PCR) - Final Laboratory Tests 01/31/17 06/26/20 06/26/20 19:29 15:46 15:46 Lactic Acid AST 71 H ALT 124 H Alkaline Phosphatase B-Natriuretic Peptide 150.9 H 2005.9 H Creatine Kinase Lipase SARS-CoV-2 (PCR) Hepatitis A IgM Ab Hep Bs Antigen Hep B Core IgM Ab Hepatitis C Antibody 06/26/20 06/27/20 06/27/20 18:58 04:19 20:24 Lactic Acid AST 75 H ALT 139 H Alkaline Phosphatase B-Natriuretic Peptide Creatine Kinase Lipase 8 SARS-CoV-2 (PCR) Not Detected Hepatitis A IgM Ab Hep Bs Antigen Hep B Core IgM Ab Hepatitis C Antibody 06/27/20 06/27/20 06/27/20 21:22 21:22 21:22 Lactic Acid 2.9 H AST 70 H ALT 135 H Alkaline Phosphatase B-Natriuretic Peptide Creatine Kinase 516 H Lipase SARS-CoV-2 (PCR) Hepatitis A IgM Ab Hep Bs Antigen Hep B Core IgM Ab Hepatitis C Antibody 06/28/20 06/29/20 06/29/20 04:34 05:32 05:32 Lactic Acid 1.5 AST 90 H ALT 155 H Alkaline Phosphatase 80 B-Natriuretic Peptide Creatine Kinase Lipase SARS-CoV-2 (PCR) Hepatitis A IgM Ab Non-Reactive Hep Bs Antigen Non-Reactive Hep B Core IgM Ab Non-Reactive Hepatitis C Antibody Non-Reactive 07/01/20 07/01/20 04:16 20:11 Lactic Acid 2.8 H AST ALT Alkaline Phosphatase B-Natriuretic Peptide 2846.1 H Creatine Kinase Lipase SARS-CoV-2 (PCR) Hepatitis A IgM Ab Hep Bs Antigen Hep B Core IgM Ab Hepatitis C Antibody Radiology Reviewed by me: Yes (PCXR - no acute process) EKG Reviewed by me: Yes (Tele - SR) Hospitalist ROS - Medication Medications: Active Medications Generic Name Dose Route Start Last Admin Trade Name Freq PRN Reason Stop Dose Admin Acetaminophen 650 mg 06/27/20 06:41 06/28/20 23:34 Acetaminophen 325 Mg Tab PO 650 mg Q6H PRN Administration Headache/Fever or Pain Al Hydroxide/Mg Hydroxide 30 ml 06/29/20 00:34 06/29/20 08:51 Mag-Al 1200 Mg/1200 Mg/30 Ml Udcup PO 30 ml Q4H PRN Administration Heartburn or Indigestion Albuterol/Ipratropium 3 ml 06/26/20 22:30 07/02/20 14:27 Ipratropium/Albuterol Sulfate 3 Ml Neb NEB 3 ml [id number] CRESCENCIO Administration Alprazolam 0.25 mg 06/29/20 21:00 07/02/20 08:22 Alprazolam 0.25 Mg Tab PO 0.25 mg BID CRESCENCIO Administration Lidocaine HCl 20 ml/ Al 0 ml 06/29/20 14:24 06/30/20 09:04 Hydroxide/Mg Hydroxide 30 ml/ SSW 59 dose Atropine/Hyoscyam/Phenobarb/ Q4H PRN Administration Scopol 32.4 mg SORE THROAT Enoxaparin Sodium 30 mg 06/27/20 09:00 07/02/20 08:22 Enoxaparin Sodium 30 Mg/0.3 Ml Syringe SC 30 mg 0900 CRESCENCIO Administration Dobutamine HCl/Dextrose 250 mls @ 3.776 mls/hr 07/01/20 20:00 07/02/20 09:54 Dobutamine 500 Mg/250 Ml IVPB 250 mls INF CRESCENCIO Administration Protocol 2.5 MCG/KG/MIN Dopamine HCl/Dextrose 250 mls @ 0 mls/hr 07/01/20 21:45 07/02/20 09:54 Dopamine 400 Mg/D5w 250 Ml IVPB 250 mls INF CRESCENCIO Administration Protocol As Directed Ondansetron HCl 4 mg 06/27/20 13:04 06/29/20 16:40 Ondansetron Pf 4 Mg/2 Ml Vial IVP 4 mg Q6H PRN Administration Nausea/Vomiting Pantoprazole Sodium 40 mg 06/29/20 09:00 07/02/20 08:22 Pantoprazole 40 Mg Tab PO 40 mg BID CRESCENCIO Administration Polyethylene Glycol 17 gm 06/29/20 09:00 07/02/20 08:23 Polyethylene Glycol 3350 17 Gm Packet PO 17 gm DAILY CRESCENCIO Administration Senna/Docusate Sodium 1 tab 06/28/20 21:00 07/02/20 08:21 Senokot S 8.6-50 Mg Tab PO 1 tab BID CRESCENCIO Administration Sodium Chloride 10 ml 06/28/20 21:00 07/02/20 08:26 Flush - Normal Saline 10 Ml Syringe IVF 10 ml Q12HR CRESCENCIO Administration - Exam General Appearance: NAD, awake alert Eye: PERRL, anicteric sclera ENT: normocephalic atraumatic, no oropharyngeal lesions Neck: supple, symmetric, no JVD, no thyromegaly, no lymphadenopathy Heart: RRR, no gallops, no rubs, normal peripheral pulses Heart - other findings: S1, S2 Respiratory: CTAB, no wheezes, no rales, no ronchi, normal chest expansion, no tachypnea Gastrointestinal: soft, non-tender, non-distended, normal bowel sounds, no palpable masses Extremities: no cyanosis, no clubbing, no edema Skin: normal turgor, no lesions Neurological: cranial nerve grossly intact, no new deficit Musculoskeletal: normal tone, generalized weakness Psychiatric: normal affect, A&O x 3 Hosp A/P (1) Acute systolic CHF (congestive heart failure) Code(s): I50.21 - ACUTE SYSTOLIC (CONGESTIVE) HEART FAILURE Status: Acute Plan: EF 15%, continue pressor support with Dopamine/Dobutamine, IVF's, hold antihypertensives (2) Hypotension Status: Acute Plan: Suspect due to #1, continue pressor support, avoid antihypertensives, Entresto on hold (3) LUIS FELIPE (acute kidney injury) Code(s): N17.9 - ACUTE KIDNEY FAILURE, UNSPECIFIED Status: Acute Plan: Likely due to volume depletion/hypotension and cardio-renal syndrome, avoid nephrotoxic meds and limit contrast, serial creatinine, continue Dopamine (4) Abdominal pain Code(s): R10.9 - UNSPECIFIED ABDOMINAL PAIN Status: Acute Qualifiers: Abdominal location: generalized Qualified Code(s): R10.84 - Generalized abdominal pain Plan: Improved overall, advancing to heart healthy diet (5) Transaminitis Code(s): R74.01 - ELEVATION OF LEVELS OF LIVER TRANSAMINASE LEVELS Status: Acute Plan: Improving, likely hepatic congestion resolving (6) Hypokalemia Code(s): E87.6 - HYPOKALEMIA Status: Acute Plan: Improved, continue KCL replacement, serial K+ monitoring (7) HTN (hypertension) Code(s): I10 - ESSENTIAL (PRIMARY) HYPERTENSION Status: Chronic Qualifiers: Hypertension type: essential hypertension Qualified Code(s): I10 - Essential (primary) hypertension - Plan PT/OT, oncology social work, DVT proph w/SCDs Stable overall Hold Entresto/Coreg/Aldactone Senokot-S/Dulcolax supp PRN Antiemetics/Lidocaine/Maalox Continue Dopamine/Dobutamine Advance to heart health diet EGD/abd sono negative Lab: BMP, Mg++, PO3
[2020-07-02] MEDS: Sodium Chloride 0.9% 1,000 ML IV SCH (17:33)
--- NOTE | 2020-07-02 19:20 | PRG ---
DATE OF SERVICE: 07/02/2020 SUBJECTIVE: The patient was moved to the ICU overnight because of hypotension, she is still on dobutamine and dopamine drip. She reports her upper abdominal pain is much better and nearly resolved. She has no nausea or vomiting. PHYSICAL EXAMINATION: VITAL SIGNS: Temperature 98.6, blood pressure 95/56, pulse of 96. GENERAL: She is alert and conversant without distress. HEENT: Shows anicteric sclerae. CV: Shows normal S1 and S2, regular rate and rhythm. CHEST: Shows a breath sound. ABDOMEN: Soft. No distention. No tympany. Essentially nontender. Liver edge was not palpable. She has active bowel sound. EXTREMITIES: Showed no edema. LABORATORY DATA: WBC 6.0, hemoglobin 5.6, and platelet count of 188. Electrolytes within normal range, creatinine 2.22, bilirubin 0.5, AST of 30, ALT of less than 7. ASSESSMENT: 1. Upper abdominal pain/right upper quadrant pain, resolved. Most likely from liver capsular enlargement from passive liver congestion. Currently, her pain has resolved and liver profile has normalized. CT, ultrasound, and EGD did not show any other significant process. 2. Severe heart failure. 3. Hypotension. RECOMMENDATION: No new GI input. As her pain has resolved and LFT has normalized, GI Service will sign off for now, please recall if needed. Job ID: [id number] MTDD
[2020-07-03] MEDS: Sodium Chloride 0.9% 1,000 ML IV SCH ×2 (06:47→20:06)
--- NOTE | 2020-07-03 07:39 | PRG ---
DATE OF SERVICE: 07/03/2020 SUBJECTIVE: The patient seems to be feeling better today. She had no acute complaints. OBJECTIVE: VITAL SIGNS: Temperature 97.4, pulse 86, blood pressure 109/64, and O2 sat 97%. 24-hour intake 3229, output 1925. HEENT: Unremarkable. NECK: No adenopathy or JVD. CHEST: Clear. CARDIAC: S1, S2. Regular. ABDOMEN: Soft. EXTREMITIES: No edema. LABORATORY DATA: White blood cell count 6, hematocrit 48, and platelet count 188. Chemistry is pending. The patient is currently on 10 mcg/kg per minute of dobutamine and 3 mcg/kg per minute of dopamine. ASSESSMENT: 1. Acute on chronic systolic heart failure. 2. Hypotension secondary to cardiogenic shock. 3. Elevated BUN and creatinine - pending today's labs. PLAN: Continue current care with dobutamine. Hopefully, wean off dopamine today. Await today's lab results. Job ID: [id number]
[2020-07-03 07:50] LABS: Anion Gap 10 mmol/L (10-20); BUN (Urea Nitrogen) 10 mg/dL (9.8-20.1); Calc. Creatinine Clearance 63 mL/min (70-130); Calcium 7.7 mg/dL (7.8-10.44); Carbon Dioxide 24 mmol/L (23-31); Chloride 108 mmol/L (98-107); Estimated GFR-MDRD Greater than 90; Glucose 97 mg/dL (80-115); Magnesium 2.3 mg/dL (1.6-2.6); Phosphorus 3.4 mg/dL (2.3-4.7); Potassium 3.5 mmol/L (3.5-5.1); Sodium 138 mmol/L (136-145)
--- NOTE | 2020-07-03 08:39 | PRG ---
DATE OF SERVICE: 07/03/2020 SUBJECTIVE: Ms. Edmonds is feeling better today. She does not have abdominal pain. Her heart rate is 100 and sinus. OBJECTIVE: VITAL SIGNS: Blood pressure is just over 100 systolic. LUNGS: Clear. CARDIAC: Normal S1, normal S2. There is an apical systolic murmur. ABDOMEN: Soft, nontender. EXTREMITIES: No edema. ASSESSMENT: 1. Congestive heart failure, systolic, acute on chronic, mildly improved. 2. Abdominal pain with probably a combination of stretch of her hepatic capsule that has resolved. 3. Constipation that also seems to have resolved. Abdominal pain is better. 4. Hypotension. PLAN: 1. Try to wean dopamine off, she is down to 2 mcg/kg/minute. 2. Gradually wean dobutamine. 3. Probably needs attention to advanced heart failure specialist. PROGNOSIS: Guarded in this patient. The patient did not tolerate low-dose carvedilol and Entresto. When the patient deteriorated, she was on spironolactone 25 mg a day, no furosemide, Entresto 24/26 twice a day, and Coreg 3.125 mg twice a day. Job ID: [id number]
[2020-07-03] MEDS: Enoxaparin Sodium 30 MG/0.3 ML SYRINGE SC SCH (08:46)
[2020-07-03] MEDS: Polyethylene Glycol 3350 17 GM Packet PO SCH (08:47)
[2020-07-03] MEDS: Senokot S 8.6-50 MG TAB PO SCH ×2 (08:47→20:05)
[2020-07-03] MEDS: ALPRAZolam 0.25 MG TAB PO SCH ×2 (08:47→20:05)
[2020-07-03] MEDS: Potassium Chloride 20 MEQ TAB PO SCH (08:48)
[2020-07-03] MEDS ORDERED: Potassium Chloride 20 MEQ TAB PO SCH (09:00)
--- NOTE | 2020-07-03 15:20 | PDOC.HOSPP ---
- Subjective Encounter Date: 07/03/20 Encounter Time: 15:20 Subjective: f/u for systolic CHF on current Dobutamine/Dopamine gtt. Feels better overall and denies any current SOB. - Objective Vital Signs & Weight: Vital Signs (12 hours) Temp Pulse Pulse Pulse Pulse Pulse Pulse 07/03/20 14:18 94 07/03/20 12:00 98.4 F 07/03/20 09:35 110 H 108 H 99 108 H 99 07/03/20 08:00 07/03/20 07:54 91 07/03/20 07:00 97.9 F 07/03/20 04:00 97.4 F L Resp BP BP BP BP BP Pulse Ox 07/03/20 14:18 22 H 100 07/03/20 12:00 07/03/20 09:35 96/65 92/67 91/59 L 108/70 92/57 L 07/03/20 08:00 98 07/03/20 07:54 16 100 07/03/20 07:00 07/03/20 04:00 Pulse Ox Pulse Ox Pulse Ox Pulse Ox Pulse Ox 07/03/20 14:18 07/03/20 12:00 07/03/20 09:35 94 L 97 98 100 94 L 07/03/20 08:00 07/03/20 07:54 07/03/20 07:00 07/03/20 04:00 Weight Admit Weight 113 lb 9.6 oz Weight 114 lb 3.191 oz Most Recent Monitor Data Heart Rate from ECG 96 NIBP 78/51 NIBP BP-Mean 60 Respiration from ECG 18 SpO2 98 I&O: 07/02/20 07/03/20 07/04/20 06:59 06:59 06:59 Intake Total 1666 3229 518 Output Total 1275 1925 0 Balance 391 1304 518 Result Diagrams: 07/01/20 19:31 07/03/20 14:01 Additional Labs: Microbiology 06/27/20 23:36 Nasopharyngeal swab Respiratory Virus Panel (PCR) - Final Laboratory Tests 01/31/17 06/26/20 06/26/20 19:29 15:46 15:46 Lactic Acid AST 71 H ALT 124 H Alkaline Phosphatase B-Natriuretic Peptide 150.9 H 2005.9 H Creatine Kinase Lipase SARS-CoV-2 (PCR) Hepatitis A IgM Ab Hep Bs Antigen Hep B Core IgM Ab Hepatitis C Antibody 06/26/20 06/27/20 06/27/20 18:58 04:19 20:24 Lactic Acid AST 75 H ALT 139 H Alkaline Phosphatase B-Natriuretic Peptide Creatine Kinase Lipase 8 SARS-CoV-2 (PCR) Not Detected Hepatitis A IgM Ab Hep Bs Antigen Hep B Core IgM Ab Hepatitis C Antibody 06/27/20 06/27/20 06/27/20 21:22 21:22 21:22 Lactic Acid 2.9 H AST 70 H ALT 135 H Alkaline Phosphatase B-Natriuretic Peptide Creatine Kinase 516 H Lipase SARS-CoV-2 (PCR) Hepatitis A IgM Ab Hep Bs Antigen Hep B Core IgM Ab Hepatitis C Antibody 06/28/20 06/29/20 06/29/20 04:34 05:32 05:32 Lactic Acid 1.5 AST 90 H ALT 155 H Alkaline Phosphatase 80 B-Natriuretic Peptide Creatine Kinase Lipase SARS-CoV-2 (PCR) Hepatitis A IgM Ab Non-Reactive Hep Bs Antigen Non-Reactive Hep B Core IgM Ab Non-Reactive Hepatitis C Antibody Non-Reactive 07/01/20 07/01/20 04:16 20:11 Lactic Acid 2.8 H AST ALT Alkaline Phosphatase B-Natriuretic Peptide 2846.1 H Creatine Kinase Lipase SARS-CoV-2 (PCR) Hepatitis A IgM Ab Hep Bs Antigen Hep B Core IgM Ab Hepatitis C Antibody EKG Reviewed by me: Yes (Tele - SR) Hospitalist ROS - Medication Medications: Active Medications Generic Name Dose Route Start Last Admin Trade Name Freq PRN Reason Stop Dose Admin Acetaminophen 650 mg 06/27/20 06:41 06/28/20 23:34 Acetaminophen 325 Mg Tab PO 650 mg Q6H PRN Administration Headache/Fever or Pain Al Hydroxide/Mg Hydroxide 30 ml 06/29/20 00:34 06/29/20 08:51 Mag-Al 1200 Mg/1200 Mg/30 Ml Udcup PO 30 ml Q4H PRN Administration Heartburn or Indigestion Albuterol/Ipratropium 3 ml 06/26/20 22:30 07/03/20 14:18 Ipratropium/Albuterol Sulfate 3 Ml Neb NEB 3 ml [id number] CRESCENCIO Administration Alprazolam 0.25 mg 06/29/20 21:00 07/03/20 08:47 Alprazolam 0.25 Mg Tab PO 0.25 mg BID CRESCENCIO Administration Lidocaine HCl 20 ml/ Al 0 ml 06/29/20 14:24 06/30/20 09:04 Hydroxide/Mg Hydroxide 30 ml/ SSW 59 dose Atropine/Hyoscyam/Phenobarb/ Q4H PRN Administration Scopol 32.4 mg SORE THROAT Enoxaparin Sodium 30 mg 06/27/20 09:00 07/03/20 08:46 Enoxaparin Sodium 30 Mg/0.3 Ml Syringe SC 30 mg 0900 CRESCENCIO Administration Dobutamine HCl/Dextrose 250 mls @ 3.776 mls/hr 07/01/20 20:00 07/02/20 09:54 Dobutamine 500 Mg/250 Ml IVPB 250 mls INF CRESCENCIO Administration Protocol 2.5 MCG/KG/MIN Dopamine HCl/Dextrose 250 mls @ 0 mls/hr 07/01/20 21:45 07/02/20 09:54 Dopamine 400 Mg/D5w 250 Ml IVPB 250 mls INF CRESCENCIO Administration Protocol As Directed Sodium Chloride 1,000 mls @ 75 mls/hr 07/02/20 17:15 07/03/20 06:47 Normal Saline 0.9% IV 1,000 mls .[id number] CRESCENCIO Administration Ondansetron HCl 4 mg 06/27/20 13:04 06/29/20 16:40 Ondansetron Pf 4 Mg/2 Ml Vial IVP 4 mg Q6H PRN Administration Nausea/Vomiting Pantoprazole Sodium 40 mg 06/29/20 09:00 07/03/20 08:48 Pantoprazole 40 Mg Tab PO 40 mg BID CRESCENCIO Administration Polyethylene Glycol 17 gm 06/29/20 09:00 07/03/20 08:47 Polyethylene Glycol 3350 17 Gm Packet PO 17 gm DAILY CRESCENCIO Administration Potassium Chloride 20 meq 07/03/20 08:00 07/03/20 08:48 Potassium Chloride 20 Meq Tab PO 20 meq QAM-WM CRESCENCIO Administration Senna/Docusate Sodium 1 tab 06/28/20 21:00 07/03/20 08:47 Senokot S 8.6-50 Mg Tab PO 1 tab BID CRESCENCIO Administration Sodium Chloride 10 ml 06/28/20 21:00 07/03/20 08:49 Flush - Normal Saline 10 Ml Syringe IVF 10 ml Q12HR CRESCENCIO Administration - Exam General Appearance: NAD Eye: PERRL, anicteric sclera ENT: normocephalic atraumatic, no oropharyngeal lesions Neck: supple, symmetric, no JVD, no thyromegaly, no lymphadenopathy Heart: RRR, no gallops, no rubs, normal peripheral pulses Heart - other findings: S1, S2 Respiratory: CTAB, no wheezes, no rales, no ronchi, normal chest expansion, no tachypnea Gastrointestinal: soft, non-tender, non-distended, normal bowel sounds, no palpable masses Extremities: no cyanosis, no clubbing, no edema Skin: normal turgor, no lesions Neurological: cranial nerve grossly intact, no new deficit Musculoskeletal: normal tone, normal strength, diffuse muscle atrophy Psychiatric: normal affect, A&O x 3 Hosp A/P (1) Acute systolic CHF (congestive heart failure) Code(s): I50.21 - ACUTE SYSTOLIC (CONGESTIVE) HEART FAILURE Status: Acute Plan: Continue pressor support, unable to wean Dopamine currently, continue Dobutamine, IVF's (2) Hypotension Status: Acute Plan: See #1 above (3) LUIS FELIPE (acute kidney injury) Code(s): N17.9 - ACUTE KIDNEY FAILURE, UNSPECIFIED Status: Acute Plan: Resolved, avoid nephrotoxic meds and limit contrast (4) Abdominal pain Code(s): R10.9 - UNSPECIFIED ABDOMINAL PAIN Status: Acute Qualifiers: Abdominal location: generalized Qualified Code(s): R10.84 - Generalized abdominal pain (5) Transaminitis Code(s): R74.01 - ELEVATION OF LEVELS OF LIVER TRANSAMINASE LEVELS Status: Acute (6) Hypokalemia Code(s): E87.6 - HYPOKALEMIA Status: Acute Plan: Resolved (7) HTN (hypertension) Code(s): I10 - ESSENTIAL (PRIMARY) HYPERTENSION Status: Chronic Qualifiers: Hypertension type: essential hypertension Qualified Code(s): I10 - Essential (primary) hypertension - Plan PT/OT, social service worker, out of bed/ambulate, DVT proph w/SCDs Consults: Palliative Care Stable overall Hold Entresto/Coreg/Aldactone Senokot-S/Dulcolax supp PRN Antiemetics/Lidocaine/Maalox Continue Dopamine/Dobutamine and wean as clinically tolerated Advance to heart health diet EGD/abd sono negative Lab: BMP
[2020-07-04 04:43] LABS: Anion Gap 12 mmol/L (10-20); BUN (Urea Nitrogen) 7 mg/dL (9.8-20.1); Calc. Creatinine Clearance 0 mL/min (70-130); Calcium 8.5 mg/dL (7.8-10.44); Carbon Dioxide 24 mmol/L (23-31); Chloride 105 mmol/L (98-107); Estimated GFR-MDRD Greater than 90; Glucose 101 mg/dL (80-115); Potassium 4.1 mmol/L (3.5-5.1); Sodium 137 mmol/L (136-145)
[2020-07-04] MEDS: DOBUTamine 500 mg/250 ml 250 ML IVPB SCH (07:44)
[2020-07-04] MEDS: Senokot S 8.6-50 MG TAB PO SCH ×2 (08:18→21:47)
[2020-07-04] MEDS: ALPRAZolam 0.25 MG TAB PO SCH ×2 (08:18→21:47)
[2020-07-04] MEDS: Enoxaparin Sodium 30 MG/0.3 ML SYRINGE SC SCH (08:22)
[2020-07-04] MEDS: Polyethylene Glycol 3350 17 GM Packet PO SCH (08:22)
--- NOTE | 2020-07-04 08:57 | PRG ---
DATE OF SERVICE: 07/04/2020 SUBJECTIVE: The patient is up in a chair eating breakfast. Actually looks good this morning. Her dopamine and dobutamine have been weaned down some. OBJECTIVE: VITAL SIGNS: Temperature 98.2, pulse 92, blood pressure 116/77, O2 saturation 98%. HEENT: Unremarkable. NECK: No adenopathy or JVD. LUNGS: Diminished breath sounds in the bases. CARDIAC: S1, S2. Regular. ABDOMEN: Soft. EXTREMITIES: No edema. LABORATORY DATA: Sodium 137, potassium 4.1, chloride 105, CO2 of 24, BUN 7, creatinine 0.7, glucose 101. ASSESSMENT: 1. Systolic heart failure. 2. Hypotension secondary to systolic heart failure. 3. Improved BUN and creatinine after withholding diuretics, given the patient some fluid. PLAN: 1. Continue to wean dobutamine and dopamine as tolerated. 2. To move out of the ICU once the drips have been weaned off. 3. Further management per heart failure specialist. Job ID: [id number]
--- NOTE | 2020-07-04 10:35 | PRG ---
DATE OF SERVICE: 07/04/2020 SUBJECTIVE: Ms. Edmonds is feeling better. She is sitting up in a chair. OBJECTIVE: VITAL SIGNS: Blood pressure is 105 systolic, which is the best it has been quite some time. NECK: Neck veins are normal. Carotid normal upstrokes. LUNGS: Clear. CARDIAC: She is tachycardic for rest, but there is no murmur, rub, or gallop. ABDOMEN: Soft, nontender, extremities. No edema. ASSESSMENT: 1. Congestive heart failure, appears to have a cardiomyopathy, severe. 2. Severe hypotension, improved. 3. Renal failure, resolved. Creatinine is back down to 0.73. PLAN: 1. Stop intravenous fluid. 2. Try to wean off dopamine. 3. Continue low-dose dobutamine. 4. Options limited, the patient being hypotensive with low-dose carvedilol and Entresto. When she is stable, we will probably try again with Entresto alone. Job ID: [id number]
--- NOTE | 2020-07-04 13:23 | EKG ---
Test Reason : STAT Blood Pressure : / mmHG Vent. Rate : 100 BPM Atrial Rate : 100 BPM P-R Int : 124 ms QRS Dur : 100 ms QT Int : 380 ms P-R-T Axes : 064 -45 100 degrees QTc Int : 490 ms Normal sinus rhythm Biatrial enlargement Left axis deviation Pulmonary disease pattern Left ventricular hypertrophy Cannot rule out Septal infarct (cited on or before 26-JUN-2020) Abnormal ECG When compared with ECG of 26-JUN-2020 15:34, No significant change was found Confirmed by DR. Manuel SIMPSON ([id number]) on 07/04/2020 1:22:53 PM Referred By: NOHEMY Confirmed By:DR. Manuel SIMPSON
[2020-07-04] MEDS: Sodium Chloride 0.9% 1,000 ML IV SCH (17:28)
[2020-07-04] MEDS: Potassium Chloride 20 MEQ TAB PO SCH (17:28)
--- NOTE | 2020-07-04 17:54 | PDOC.HOSPP ---
- Subjective Encounter Date: 07/04/20 Encounter Time: 17:45 Subjective: f/u for systolic CHF on Dobutamine for inotropic support. Feels ok overall and denies any edema. - Objective Vital Signs & Weight: Vital Signs (12 hours) Temp Pulse Pulse Pulse Resp BP BP 07/04/20 17:14 109 H 18 07/04/20 16:00 97.9 F 07/04/20 14:26 96 19 07/04/20 12:00 97.7 F 07/04/20 11:15 86 70 110/74 88/62 L 07/04/20 08:00 98.6 F BP Pulse Ox 07/04/20 17:14 133/83 100 07/04/20 16:00 07/04/20 14:26 99 07/04/20 12:00 07/04/20 11:15 07/04/20 08:00 100 Weight Admit Weight 113 lb 9.6 oz Weight 113 lb 1.554 oz Most Recent Monitor Data Heart Rate from ECG 95 NIBP 95/59 NIBP BP-Mean 71 Respiration from ECG 21 SpO2 100 I&O: 07/03/20 07/04/20 07/05/20 06:59 06:59 06:59 Intake Total 3229 2827.8 312 Output Total 1925 3000 700 Balance 1304 -172.2 -388 Result Diagrams: 07/01/20 19:31 07/04/20 03:45 Additional Labs: Microbiology 06/27/20 23:36 Nasopharyngeal swab Respiratory Virus Panel (PCR) - Final Laboratory Tests 01/31/17 06/26/20 06/26/20 19:29 15:46 15:46 Lactic Acid AST 71 H ALT 124 H Alkaline Phosphatase B-Natriuretic Peptide 150.9 H 2005.9 H Creatine Kinase Lipase SARS-CoV-2 (PCR) Hepatitis A IgM Ab Hep Bs Antigen Hep B Core IgM Ab Hepatitis C Antibody 06/26/20 06/27/20 06/27/20 18:58 04:19 20:24 Lactic Acid AST 75 H ALT 139 H Alkaline Phosphatase B-Natriuretic Peptide Creatine Kinase Lipase 8 SARS-CoV-2 (PCR) Not Detected Hepatitis A IgM Ab Hep Bs Antigen Hep B Core IgM Ab Hepatitis C Antibody 06/27/20 06/27/20 06/27/20 21:22 21:22 21:22 Lactic Acid 2.9 H AST 70 H ALT 135 H Alkaline Phosphatase B-Natriuretic Peptide Creatine Kinase 516 H Lipase SARS-CoV-2 (PCR) Hepatitis A IgM Ab Hep Bs Antigen Hep B Core IgM Ab Hepatitis C Antibody 06/28/20 06/29/20 06/29/20 04:34 05:32 05:32 Lactic Acid 1.5 AST 90 H ALT 155 H Alkaline Phosphatase 80 B-Natriuretic Peptide Creatine Kinase Lipase SARS-CoV-2 (PCR) Hepatitis A IgM Ab Non-Reactive Hep Bs Antigen Non-Reactive Hep B Core IgM Ab Non-Reactive Hepatitis C Antibody Non-Reactive 07/01/20 07/01/20 04:16 20:11 Lactic Acid 2.8 H AST ALT Alkaline Phosphatase B-Natriuretic Peptide 2846.1 H Creatine Kinase Lipase SARS-CoV-2 (PCR) Hepatitis A IgM Ab Hep Bs Antigen Hep B Core IgM Ab Hepatitis C Antibody EKG Reviewed by me: Yes (Tele - SR) Hospitalist ROS - Medication Medications: Active Medications Generic Name Dose Route Start Last Admin Trade Name Freq PRN Reason Stop Dose Admin Acetaminophen 650 mg 06/27/20 06:41 06/28/20 23:34 Acetaminophen 325 Mg Tab PO 650 mg Q6H PRN Administration Headache/Fever or Pain Al Hydroxide/Mg Hydroxide 30 ml 06/29/20 00:34 06/29/20 08:51 Mag-Al 1200 Mg/1200 Mg/30 Ml Udcup PO 30 ml Q4H PRN Administration Heartburn or Indigestion Albuterol/Ipratropium 3 ml 06/26/20 22:30 07/04/20 14:26 Ipratropium/Albuterol Sulfate 3 Ml Neb NEB 3 ml [id number] [facility]ENCIO Administration Alprazolam 0.25 mg 06/29/20 21:00 07/04/20 08:18 Alprazolam 0.25 Mg Tab PO 0.25 mg BID CR[facility]CENCIO Administration Lidocaine HCl 20 ml/ Al 0 ml 06/29/20 14:24 06/30/20 09:04 Hydroxide/Mg Hydroxide 30 ml/ SSW 59 dose Atropine/Hyoscyam/Phenobarb/ Q4H PRN Administration Scopol 32.4 mg SORE THROAT Enoxaparin Sodium 30 mg 06/27/20 09:00 07/04/20 08:22 Enoxaparin Sodium 30 Mg/0.3 Ml Syringe SC 30 mg 0900 CRESCENCIO Administration Dobutamine HCl/Dextrose 250 mls @ 3.776 mls/hr 07/01/20 20:00 07/04/20 07:44 Dobutamine 500 Mg/250 Ml IVPB 250 mls INF CR[facility]CENCIO Administration Protocol 2.5 MCG/KG/MIN Dopamine HCl/Dextrose 250 mls @ 0 mls/hr 07/01/20 21:45 07/02/20 09:54 Dopamine 400 Mg/D5w 250 Ml IVPB 250 mls INF CRESCENCIO Administration Protocol As Directed Ondansetron HCl 4 mg 06/27/20 13:04 06/29/20 16:40 Ondansetron Pf 4 Mg/2 Ml Vial IVP 4 mg Q6H PRN Administration Nausea/Vomiting Pantoprazole Sodium 40 mg 06/29/20 09:00 07/04/20 08:17 Pantoprazole 40 Mg Tab PO 40 mg BID CR[facility] Administration Polyethylene Glycol 17 gm 06/29/20 09:00 07/04/20 08:22 Polyethylene Glycol 3350 17 Gm Packet PO 17 gm DAILY CR[facility]ENCIO Administration Senna/Docusate Sodium 1 tab 06/28/20 21:00 07/04/20 08:18 Senokot S 8.6-50 Mg Tab PO 1 tab BID CR[facility] Administration Sodium Chloride 10 ml 06/28/20 21:00 07/04/20 14:44 Flush - Normal Saline 10 Ml Syringe IVF 10 ml Q12HR CRESCENCIO Administration - Exam General Appearance: NAD, awake alert Eye: PERRL, anicteric sclera ENT: normocephalic atraumatic, no oropharyngeal lesions Neck: supple, symmetric, no JVD, no thyromegaly, no lymphadenopathy Heart: RRR, no gallops, no rubs, normal peripheral pulses Heart - other findings: S1, S2 Respiratory: CTAB, no wheezes, no rales, no ronchi, normal chest expansion Gastrointestinal: soft, non-tender, non-distended, normal bowel sounds, no palpable masses Extremities: no cyanosis, no clubbing, no edema Skin: normal turgor, no lesions Neurological: cranial nerve grossly intact, no new deficit Musculoskeletal: normal tone, generalized weakness, diffuse muscle atrophy Psychiatric: normal affect, A&O x 3 Hosp A/P (1) Acute systolic CHF (congestive heart failure) Code(s): I50.21 - ACUTE SYSTOLIC (CONGESTIVE) HEART FAILURE Status: Acute Plan: EF 15%, continue inotropic support with Dobutamine, eventual transition back to Entresto when hypotension resolved (2) Hypotension Status: Acute Plan: See above #1 (3) LUIS FELIPE (acute kidney injury) Code(s): N17.9 - ACUTE KIDNEY FAILURE, UNSPECIFIED Status: Acute (4) Abdominal pain Code(s): R10.9 - UNSPECIFIED ABDOMINAL PAIN Status: Acute Qualifiers: Abdominal location: generalized Qualified Code(s): R10.84 - Generalized abdominal pain (5) Transaminitis Code(s): R74.01 - ELEVATION OF LEVELS OF LIVER TRANSAMINASE LEVELS Status: Acute (6) Hypokalemia Code(s): E87.6 - HYPOKALEMIA Status: Acute Plan: Resolved, serial K+ monitoring (7) HTN (hypertension) Code(s): I10 - ESSENTIAL (PRIMARY) HYPERTENSION Status: Chronic Qualifiers: Hypertension type: essential hypertension Qualified Code(s): I10 - Essential (primary) hypertension Plan: Hypotensive currently requiring pressor support - Plan plan discussed w/ family, PT/OT, director social service, respiratory therapy, out of bed/ambulate, DVT proph w/SCDs Stable overall Hold Entresto/Coreg/Aldactone due to hypotension Senokot-S/Dulcolax supp PRN Antiemetics/Lidocaine/Maalox Continue Dobutamine and wean as clinically tolerated Advance to heart health diet
[2020-07-04] MEDS: Acetaminophen 325 MG TAB PO PRN (19:38)
[2020-07-05] MEDS ORDERED: Melatonin 3 MG TAB PO SCH (01:30)
[2020-07-05] MEDS: ALPRAZolam 0.25 MG TAB PO SCH ×2 (08:00→21:44)
[2020-07-05] MEDS: Senokot S 8.6-50 MG TAB PO SCH ×2 (08:00→21:45)
[2020-07-05] MEDS: Enoxaparin Sodium 30 MG/0.3 ML SYRINGE SC SCH (08:01)
[2020-07-05] MEDS: Polyethylene Glycol 3350 17 GM Packet PO SCH (08:01)
--- NOTE | 2020-07-05 08:30 | PDOC.HOSPP ---
- Subjective Encounter Date: 07/05/20 Encounter Time: 10:00 Subjective: Patient without complaints. Still on dobutamine. - Objective Vital Signs & Weight: Vital Signs (12 hours) Temp Pulse Resp BP Pulse Ox 07/05/20 07:54 98.3 F 94 18 108/69 97 07/05/20 07:46 88 12 07/05/20 04:00 102 H 16 96/56 L 94 L 07/05/20 02:12 117 H 16 99 07/04/20 22:07 90 16 100 Weight Admit Weight 113 lb 9.6 oz Weight 120 lb 3.2 oz Most Recent Monitor Data Heart Rate from ECG 95 NIBP 95/59 NIBP BP-Mean 71 Respiration from ECG 21 SpO2 100 I&O: 07/04/20 07/05/20 07/06/20 06:59 06:59 06:59 Intake Total 2827.8 312 350 Output Total 3000 700 1500 Balance -172.2 -388 -4780 Result Diagrams: 07/01/20 19:31 07/04/20 03:45 Hospitalist ROS - Review of Systems Constitutional: denies: fever, chills Respiratory: denies: cough, shortness of breath Cardiovascular: denies: chest pain, palpitations Gastrointestinal: denies: nausea, vomiting, abdominal pain - Medication Medications: Active Medications Generic Name Dose Route Start Last Admin Trade Name Freq PRN Reason Stop Dose Admin Acetaminophen 650 mg 06/27/20 06:41 07/04/20 19:38 Acetaminophen 325 Mg Tab PO 650 mg Q6H PRN Administration Headache/Fever or Pain Al Hydroxide/Mg Hydroxide 30 ml 06/29/20 00:34 06/29/20 08:51 Mag-Al 1200 Mg/1200 Mg/30 Ml Udcup PO 30 ml Q4H PRN Administration Heartburn or Indigestion Albuterol/Ipratropium 3 ml 06/26/20 22:30 07/05/20 07:46 Ipratropium/Albuterol Sulfate 3 Ml Neb NEB 3 ml [id number] [facility] Administration Alprazolam 0.25 mg 06/29/20 21:00 07/05/20 08:00 Alprazolam 0.25 Mg Tab PO 0.25 mg BID [facility] Administration Lidocaine HCl 20 ml/ Al 0 ml 06/29/20 14:24 06/30/20 09:04 Hydroxide/Mg Hydroxide 30 ml/ SSW 59 dose Atropine/Hyoscyam/Phenobarb/ Q4H PRN Administration Scopol 32.4 mg SORE THROAT Enoxaparin Sodium 30 mg 06/27/20 09:00 07/05/20 08:01 Enoxaparin Sodium 30 Mg/0.3 Ml Syringe SC 30 mg 0900 [facility] Administration Dobutamine HCl/Dextrose 250 mls @ 3.776 mls/hr 07/01/20 20:00 07/04/20 07:44 Dobutamine 500 Mg/250 Ml IVPB 250 mls INF [facility] Administration Protocol 2.5 MCG/KG/MIN Ondansetron HCl 4 mg 06/27/20 13:04 06/29/20 16:40 Ondansetron Pf 4 Mg/2 Ml Vial IVP 4 mg Q6H PRN Administration Nausea/Vomiting Pantoprazole Sodium 40 mg 06/29/20 09:00 07/05/20 08:00 Pantoprazole 40 Mg Tab PO 40 mg BID [facility] Administration Polyethylene Glycol 17 gm 06/29/20 09:00 07/05/20 08:01 Polyethylene Glycol 3350 17 Gm Packet PO 17 gm DAILY [facility] Administration Senna/Docusate Sodium 1 tab 06/28/20 21:00 07/05/20 08:00 Senokot S 8.6-50 Mg Tab PO 1 tab BID [facility] Administration Sodium Chloride 10 ml 06/28/20 21:00 07/05/20 08:01 Flush - Normal Saline 10 Ml Syringe IVF 10 ml Q12HR [facility] Administration - Exam General Appearance: NAD, awake alert ENT: moist mucosa Heart: RRR, no murmur, no gallops, no rubs Respiratory: CTAB, no wheezes, no rales, no ronchi Gastrointestinal: soft, non-tender, non-distended, normal bowel sounds Psychiatric: normal affect, normal behavior, A&O x 3 Hosp A/P (1) Acute systolic CHF (congestive heart failure) Code(s): I50.21 - ACUTE SYSTOLIC (CONGESTIVE) HEART FAILURE Status: Acute (2) Hypotension Status: Resolved (3) LUIS FELIPE (acute kidney injury) Code(s): N17.9 - ACUTE KIDNEY FAILURE, UNSPECIFIED Status: Acute Plan: improved nicely (4) Abdominal pain Code(s): R10.9 - UNSPECIFIED ABDOMINAL PAIN Status: Acute Qualifiers: Abdominal location: generalized Qualified Code(s): R10.84 - Generalized abdominal pain (5) Transaminitis Code(s): R74.01 - ELEVATION OF LEVELS OF LIVER TRANSAMINASE LEVELS Status: Acute Plan: due to hepatic congestion (6) Hypokalemia Code(s): E87.6 - HYPOKALEMIA Status: Resolved (7) HTN (hypertension) Code(s): I10 - ESSENTIAL (PRIMARY) HYPERTENSION Status: Chronic Qualifiers: Hypertension type: essential hypertension Qualified Code(s): I10 - Essential (primary) hypertension - Plan plan discussed w/ family, PT/OT, social media specialist, respiratory therapy, out of bed/ambulate, DVT proph w/SCDs Stable overall Hold Entresto/Coreg/Aldactone due to hypotension Senokot-S/Dulcolax supp PRN Antiemetics/Lidocaine/Maalox Continue Dobutamine and wean as clinically tolerated, plan to try Entresto alone once improved Advance to heart healthy diet
--- NOTE | 2020-07-05 15:22 | PDOC.CPN ---
- Subjective Date: 07/05/20 Time: 15:20 Interval history: No new issues. Breathing close to baseline. - Review of Systems General: denies: fever/chills, weight/appetite/sleep changes, night sweats, fatigue Respiratory: denies: cough, congestion, shortness of breath, exercise intolerance Cardiovascular: denies: chest pain, palpitation, edema, paroxysmal nocturnal dyspnea, orthopnea Gastrointestinal: denies: nausea, vomiting, diarrhea, constipation, abd pain, GI bleeding Musculoskeletal: denies: pain, tenderness, stiffness, swelling, arthritis/arthralgias Neurological: denies: numbness, syncope, seizure, weakness - Objective Allergies/Adverse Reactions: Allergies Allergy/AdvReac Type Severity Reaction Status Date / Time codeine Allergy Verified 06/26/20 20:56 hydrocodone Allergy Verified 06/26/20 20:56 Iodine and Iodide Containing Allergy Verified 02/02/17 14:22 Produc iod Allergy Uncoded 02/02/17 14:22 Visit Medications: Current Medications Acetaminophen (Acetaminophen 325 Mg Tab) 650 mg PO Q6H PRN PRN Reason: Headache/Fever or Pain Last Admin: 07/04/20 19:38 Dose: 650 mg Documented by: Al Hydroxide/Mg Hydroxide (Mag-Al 1200 Mg/1200 Mg/30 Ml Udcup) 30 ml PO Q4H PRN PRN Reason: Heartburn or Indigestion Last Admin: 06/29/20 08:51 Dose: 30 ml Documented by: Albuterol/Ipratropium (Ipratropium/Albuterol Sulfate 3 Ml Neb) 3 ml NEB [id number] [facility]CENCIO Last Admin: 07/05/20 14:11 Dose: 3 ml Documented by: Albuterol/Ipratropium (Ipratropium/Albuterol Sulfate 3 Ml Neb) 3 ml NEB [id number] PRN PRN Reason: SOB &/or Wheezing Alprazolam (Alprazolam 0.25 Mg Tab) 0.25 mg PO BID [facility] Last Admin: 07/05/20 08:00 Dose: 0.25 mg Documented by: Bisacodyl (Bisacodyl 10 Mg Supp) 10 mg [place] DAILYPRN PRN PRN Reason: Constipation Lidocaine HCl 20 ml/ Al Hydroxide/Mg Hydroxide 30 ml/Atropine/Hyoscyam/Phenobarb/Scopol 32.4 mg 0 ml SSW Q4H PRN PRN Reason: SORE THROAT Last Admin: 06/30/20 09:04 Dose: 59 dose Documented by: Enoxaparin Sodium (Enoxaparin Sodium 30 Mg/0.3 Ml Syringe) 30 mg SC 0900 [facility] Last Admin: 07/05/20 08:01 Dose: 30 mg Documented by: Dobutamine HCl/Dextrose (Dobutamine 500 Mg/250 Ml) 250 mls @ 3.776 mls/hr IVPB INF [facility]; Protocol Last Admin: 07/04/20 07:44 Dose: 250 mls Documented by: Melatonin (Melatonin 3 Mg Tab) 3 mg PO HS [facility] Miscellaneous Medication (Electrolyte Replacement Protoc 1 Each Each) 1 each FS ASDIR [facility] Nitroglycerin (Nitroglycerin 0.4 Mg Tab (25 Tab Bottle)) 0.4 mg SL Q5MIN PRN PRN Reason: Chest Pain Ondansetron HCl (Ondansetron Pf 4 Mg/2 Ml Vial) 4 mg IVP Q6H PRN PRN Reason: Nausea/Vomiting Last Admin: 06/29/20 16:40 Dose: 4 mg Documented by: Pantoprazole Sodium (Pantoprazole 40 Mg Tab) 40 mg PO BID [facility] Last Admin: 07/05/20 08:00 Dose: 40 mg Documented by: Polyethylene Glycol (Polyethylene Glycol 3350 17 Gm Packet) 17 gm PO DAILY [facility] Last Admin: 07/05/20 08:01 Dose: 17 gm Documented by: Senna/Docusate Sodium (Senokot S 8.6-50 Mg Tab) 1 tab PO BID [facility] Last Admin: 07/05/20 08:00 Dose: 1 tab Documented by: Sodium Chloride (Flush - Normal Saline 10 Ml Syringe) 10 ml IVF Q12HR [facility] Last Admin: 07/05/20 08:01 Dose: 10 ml Documented by: Sodium Chloride (Flush - Normal Saline 10 Ml Syringe) 10 ml IVF PRN PRN PRN Reason: Saline Flush Vital Signs & Weight: Vital Signs Temp Pulse Resp BP Pulse Ox 07/05/20 14:11 101 H 16 07/05/20 11:34 98.4 F 101 H 18 109/64 98 07/05/20 07:54 98.3 F 94 18 108/69 97 07/05/20 07:46 88 12 07/05/20 04:00 102 H 16 96/56 L 94 L Admit Weight 113 lb 9.6 oz Weight 120 lb 3.2 oz - Physical Exam General: alert & oriented x3 HEENT: mucus membranes moist Neck: supple neck Cardiac: regular rate and rhythm Lungs: clear to auscultation Neuro: grossly intact Abdomen: active bowel sounds Extremities: no edema Skin: clear Musculoskeletal: no pain - Labs Result Diagrams: 07/01/20 19:31 07/04/20 03:45 Troponin/CKMB Troponin I 0.046 ng/mL (< 0.028) H 06/29/20 05:32 - Telemetry Sinus rhythms and dysrhythmias: sinus rhythm - Assessment/Plan Assessment/Plan: 1. Acute on chronic systolic heart failure. 2. Hypotebnsion, improved. 3. LUIS FELIPE, improved. PLAN; - Continue dobutamin drip low dose. - Her BP dipped again this morning and remains borderline. - Will hold on trying to restart Entresto today, maybe tomorrow if BP better.
[2020-07-05] MEDS: Melatonin 3 MG TAB PO SCH (21:45)
[2020-07-05] MEDS: DOBUTamine 500 mg/250 ml 250 ML IVPB SCH (21:45)
[2020-07-06 04:14] LABS: #Eosinphils 0.1 thou/uL (0.0-0.7); #Lymphocytes 2.1 thou/uL (1.20-3.40); #Monocytes 0.5 thou/uL (0.11-0.59); #Neutrophils 1.9 thou/uL (1.40-6.50); %Basophils 0.7 % (0.0-1.0); %Eosinophils 1.4 % (0.0-10.0); %Lymphocytes 45.8 % (21.0-51.0); %Monocytes 10.1 % (0.0-10.0); %Neutrophils 42.1 % (42.0-75.0); Hemoglobin 12.9 g/dL (12.0-16.0); Mean Corpuscular HGB CONC 32.8 g/dL (32.0-36.0); Mean Corpuscular Hemoglobin 29.3 pg (27.0-31.0); Mean Corpuscular Volume 89.4 fL (78.0-98.0); Platelet Count 172 thou/uL (130-400); RBC Distribution Width 13.8 % (11.5-14.5); Red Blood Cell (RBC) Count 4.39 mill/uL (4.20-5.40); White Blood Cell (WBC) Count 4.5 thou/uL (4.8-10.8)
[2020-07-06 04:32] LABS: Anion Gap 13 mmol/L (10-20); BUN (Urea Nitrogen) 12 mg/dL (9.8-20.1); Calc. Creatinine Clearance 63 mL/min (70-130); Calcium 8.6 mg/dL (7.8-10.44); Carbon Dioxide 24 mmol/L (23-31); Chloride 104 mmol/L (98-107); Estimated GFR-MDRD Greater than 90; Glucose 88 mg/dL (80-115); Potassium 3.8 mmol/L (3.5-5.1); Sodium 137 mmol/L (136-145)
--- NOTE | 2020-07-06 08:51 | PDOC.HOSPP ---
- Subjective Encounter Date: 07/06/20 Encounter Time: 10:30 Subjective: Patient sad because no one has come to visit her in the hospital. Didn't realize this was because of restrictions from Covid. No SOB or chest pain. - Objective Vital Signs & Weight: Vital Signs (12 hours) Temp Pulse Resp BP Pulse Ox 07/06/20 07:16 104 H 20 07/06/20 03:10 98.2 F 99 15 115/68 96 07/06/20 02:31 100 16 100 07/05/20 22:21 102 H 16 100 Weight Admit Weight 113 lb 9.6 oz Weight 119 lb 3.2 oz Most Recent Monitor Data Heart Rate from ECG 95 NIBP 95/59 NIBP BP-Mean 71 Respiration from ECG 21 SpO2 100 I&O: 07/05/20 07/06/20 07/07/20 06:59 06:59 06:59 Intake Total 312 1030 Output Total 700 2050 Balance -388 1020 Result Diagrams: 07/06/20 03:18 07/06/20 03:18 Hospitalist ROS - Review of Systems Constitutional: denies: fever, chills Respiratory: denies: cough, shortness of breath Cardiovascular: denies: chest pain, palpitations Gastrointestinal: denies: nausea, vomiting, abdominal pain - Medication Medications: Active Medications Generic Name Dose Route Start Last Admin Trade Name Freq PRN Reason Stop Dose Admin Acetaminophen 650 mg 06/27/20 06:41 07/04/20 19:38 Acetaminophen 325 Mg Tab PO 650 mg Q6H PRN Administration Headache/Fever or Pain Al Hydroxide/Mg Hydroxide 30 ml 06/29/20 00:34 06/29/20 08:51 Mag-Al 1200 Mg/1200 Mg/30 Ml Udcup PO 30 ml Q4H PRN Administration Heartburn or Indigestion Albuterol/Ipratropium 3 ml 06/26/20 22:30 07/06/20 07:16 Ipratropium/Albuterol Sulfate 3 Ml Neb NEB 3 ml [id number] [facility]ES[facility]ENCIO Administration Alprazolam 0.25 mg 06/29/20 21:00 07/05/20 21:44 Alprazolam 0.25 Mg Tab PO 0.25 mg BID [facility]ENCIO Administration Lidocaine HCl 20 ml/ Al 0 ml 06/29/20 14:24 06/30/20 09:04 Hydroxide/Mg Hydroxide 30 ml/ SSW 59 dose Atropine/Hyoscyam/Phenobarb/ Q4H PRN Administration Scopol 32.4 mg SORE THROAT Enoxaparin Sodium 30 mg 06/27/20 09:00 07/05/20 08:01 Enoxaparin Sodium 30 Mg/0.3 Ml Syringe SC 30 mg 0900 CRES[facility]ENCIO Administration Dobutamine HCl/Dextrose 250 mls @ 3.776 mls/hr 07/01/20 20:00 07/05/20 21:45 Dobutamine 500 Mg/250 Ml IVPB 250 mls INF [facility]ENCIO Administration Protocol 2.5 MCG/KG/MIN Melatonin 3 mg 07/05/20 21:00 07/05/20 21:45 Melatonin 3 Mg Tab PO 3 mg HS [facility] Administration Ondansetron HCl 4 mg 06/27/20 13:04 06/29/20 16:40 Ondansetron Pf 4 Mg/2 Ml Vial IVP 4 mg Q6H PRN Administration Nausea/Vomiting Pantoprazole Sodium 40 mg 06/29/20 09:00 07/05/20 21:45 Pantoprazole 40 Mg Tab PO 40 mg BID [facility] Administration Polyethylene Glycol 17 gm 06/29/20 09:00 07/05/20 08:01 Polyethylene Glycol 3350 17 Gm Packet PO 17 gm DAILY [facility] Administration Senna/Docusate Sodium 1 tab 06/28/20 21:00 07/05/20 21:45 Senokot S 8.6-50 Mg Tab PO 1 tab BID CR[facility]ENC[facility] Administration Sodium Chloride 10 ml 06/28/20 21:00 07/05/20 21:44 Flush - Normal Saline 10 Ml Syringe IVF 10 ml Q12HR [facility] Administration - Exam General Appearance: NAD, awake alert ENT: moist mucosa Heart: RRR, no murmur, no gallops, no rubs Respiratory: CTAB, no wheezes, no rales, no ronchi Gastrointestinal: soft, non-tender, non-distended, normal bowel sounds Psychiatric: normal behavior, A&O x 3 Psychiatric - other findings: sad Hosp A/P (1) Acute systolic CHF (congestive heart failure) Code(s): I50.21 - ACUTE SYSTOLIC (CONGESTIVE) HEART FAILURE Status: Acute (2) Hypotension Status: Resolved (3) LUIS FELIPE (acute kidney injury) Code(s): N17.9 - ACUTE KIDNEY FAILURE, UNSPECIFIED Status: Resolved (4) Abdominal pain Code(s): R10.9 - UNSPECIFIED ABDOMINAL PAIN Status: Acute Qualifiers: Abdominal location: generalized Qualified Code(s): R10.84 - Generalized abdominal pain (5) Transaminitis Code(s): R74.01 - ELEVATION OF LEVELS OF LIVER TRANSAMINASE LEVELS Status: Acute (6) Hypokalemia Code(s): E87.6 - HYPOKALEMIA Status: Resolved (7) HTN (hypertension) Code(s): I10 - ESSENTIAL (PRIMARY) HYPERTENSION Status: Chronic Qualifiers: Hypertension type: essential hypertension Qualified Code(s): I10 - Essential (primary) hypertension - Plan PT/OT, social science instructor, respiratory therapy, out of bed/ambulate, DVT proph w/SCDs Stable overall Hold Entresto/Coreg/Aldactone due to hypotension Senokot-S/Dulcolax supp PRN Antiemetics/Lidocaine/Maalox Continue Dobutamine and wean as clinically tolerated, plan to try Entresto alone once improved Advanced to heart healthy diet
[2020-07-06] MEDS: Enoxaparin Sodium 30 MG/0.3 ML SYRINGE SC SCH (09:01)
[2020-07-06] MEDS: Polyethylene Glycol 3350 17 GM Packet PO SCH (09:01)
[2020-07-06] MEDS: ALPRAZolam 0.25 MG TAB PO SCH ×2 (09:02→19:50)
[2020-07-06] MEDS: Senokot S 8.6-50 MG TAB PO SCH ×2 (09:02→19:51)
--- NOTE | 2020-07-06 15:09 | PDOC.CPN ---
- Subjective Date: 07/06/20 Time: 15:07 Interval history: No new issues. Breathing at baseline. - Review of Systems General: denies: fever/chills, weight/appetite/sleep changes, night sweats, fatigue Respiratory: denies: cough, congestion, shortness of breath, exercise intolerance Cardiovascular: denies: chest pain, palpitation, edema, paroxysmal nocturnal dyspnea, orthopnea Gastrointestinal: denies: nausea, vomiting, diarrhea, constipation, abd pain, GI bleeding Musculoskeletal: denies: pain, tenderness, stiffness, swelling, arthritis/arthralgias Neurological: denies: numbness, syncope, seizure, weakness - Objective Allergies/Adverse Reactions: Allergies Allergy/AdvReac Type Severity Reaction Status Date / Time codeine Allergy Verified 06/26/20 20:56 hydrocodone Allergy Verified 06/26/20 20:56 Iodine and Iodide Containing Allergy Verified 02/02/17 14:22 Produc iod Allergy Uncoded 02/02/17 14:22 Visit Medications: Current Medications Acetaminophen (Acetaminophen 325 Mg Tab) 650 mg PO Q6H PRN PRN Reason: Headache/Fever or Pain Last Admin: 07/04/20 19:38 Dose: 650 mg Documented by: Al Hydroxide/Mg Hydroxide (Mag-Al 1200 Mg/1200 Mg/30 Ml Udcup) 30 ml PO Q4H PRN PRN Reason: Heartburn or Indigestion Last Admin: 06/29/20 08:51 Dose: 30 ml Documented by: Albuterol/Ipratropium (Ipratropium/Albuterol Sulfate 3 Ml Neb) 3 ml NEB [id number] [facility] Last Admin: 07/06/20 14:03 Dose: 3 ml Documented by: Albuterol/Ipratropium (Ipratropium/Albuterol Sulfate 3 Ml Neb) 3 ml NEB [id number] PRN PRN Reason: SOB &/or Wheezing Alprazolam (Alprazolam 0.25 Mg Tab) 0.25 mg PO BID [facility] Last Admin: 07/06/20 09:02 Dose: 0.25 mg Documented by: Bisacodyl (Bisacodyl 10 Mg Supp) 10 mg [place] DAILYPRN PRN PRN Reason: Constipation Lidocaine HCl 20 ml/ Al Hydroxide/Mg Hydroxide 30 ml/Atropine/Hyoscyam/Phenobarb/Scopol 32.4 mg 0 ml SSW Q4H PRN PRN Reason: SORE THROAT Last Admin: 06/30/20 09:04 Dose: 59 dose Documented by: Enoxaparin Sodium (Enoxaparin Sodium 30 Mg/0.3 Ml Syringe) 30 mg SC 0900 [facility] Last Admin: 07/06/20 09:01 Dose: 30 mg Documented by: Dobutamine HCl/Dextrose (Dobutamine 500 Mg/250 Ml) 250 mls @ 3.776 mls/hr IVPB INF [facility]; Protocol Last Admin: 07/05/20 21:45 Dose: 250 mls Documented by: Melatonin (Melatonin 3 Mg Tab) 3 mg PO HS [facility] Last Admin: 07/05/20 21:45 Dose: 3 mg Documented by: Miscellaneous Medication (Electrolyte Replacement Protoc 1 Each Each) 1 each FS ASDIR [facility] Nitroglycerin (Nitroglycerin 0.4 Mg Tab (25 Tab Bottle)) 0.4 mg SL Q5MIN PRN PRN Reason: Chest Pain Ondansetron HCl (Ondansetron Pf 4 Mg/2 Ml Vial) 4 mg IVP Q6H PRN PRN Reason: Nausea/Vomiting Last Admin: 06/29/20 16:40 Dose: 4 mg Documented by: Pantoprazole Sodium (Pantoprazole 40 Mg Tab) 40 mg PO BID [facility] Last Admin: 07/06/20 09:02 Dose: 40 mg Documented by: Polyethylene Glycol (Polyethylene Glycol 3350 17 Gm Packet) 17 gm PO DAILY [facility] Last Admin: 07/06/20 09:01 Dose: 17 gm Documented by: Senna/Docusate Sodium (Senokot S 8.6-50 Mg Tab) 1 tab PO BID [facility] Last Admin: 07/06/20 09:02 Dose: 1 tab Documented by: Sodium Chloride (Flush - Normal Saline 10 Ml Syringe) 10 ml IVF Q12HR [facility] Last Admin: 07/06/20 09:02 Dose: Not Given Documented by: Sodium Chloride (Flush - Normal Saline 10 Ml Syringe) 10 ml IVF PRN PRN PRN Reason: Saline Flush Vital Signs & Weight: Vital Signs Temp Pulse Pulse Pulse Resp BP BP 07/06/20 14:03 118 H 16 07/06/20 11:05 107 H 100 109/68 105/67 07/06/20 07:16 104 H 20 07/06/20 03:10 98.2 F 99 15 BP Pulse Ox 07/06/20 14:03 07/06/20 11:05 07/06/20 07:16 07/06/20 03:10 115/68 96 Admit Weight 113 lb 9.6 oz Weight 119 lb 3.2 oz - Physical Exam General: alert & oriented x3 HEENT: mucus membranes moist Neck: supple neck Cardiac: regular rate and rhythm Lungs: normal breath sounds Neuro: grossly intact Abdomen: active bowel sounds Extremities: no edema Skin: clear Musculoskeletal: no pain - Labs Result Diagrams: 07/06/20 03:18 07/06/20 03:18 Troponin/CKMB Troponin I 0.046 ng/mL (< 0.028) H 06/29/20 05:32 - Telemetry Sinus rhythms and dysrhythmias: sinus rhythm - Assessment/Plan Assessment/Plan: 1. Acute on chronic systolic heart failure. 2. Hypotension, improved. 3. LUIS FELIPE, improved. PLAN; - Will wean dobutamine off. - BP borderline low to try entresto today.
[2020-07-06] MEDS: Melatonin 3 MG TAB PO SCH (19:50)
[2020-07-07] MEDS: Acetaminophen 325 MG TAB PO PRN ×2 (00:04→18:15)
--- NOTE | 2020-07-07 07:49 | RAD ---
EXAM: XR Abdomen 1 View/KUB PROVIDED CLINICAL HISTORY: Abdominal distention cramping. COMPARISON: None FINDINGS: A vascular catheter overlies the left hemipelvis. There is marked gaseous distention of the stomach w ith particulate matter likely due to ingested material within the region of the expected location of the fundus of the stomach. Multiple gas-filled loops of bowel are seen throughout the abdomen. Vas cular calcifications are seen in the abdominal aorta and iliac arteries. Mild degenerative changes noted spine. IMPRESSION: 1. Findings which are thought to most likely be related to marked gaseous distention of the stomach. There is also diffuse gaseous distention of small and large loops of bowel.
--- NOTE | 2020-07-07 07:51 | PDOC.HOSPP ---
- Subjective Encounter Date: 07/07/20 Encounter Time: 09:00 Subjective: Patient without complaints. No changes overnight. - Objective Vital Signs & Weight: Vital Signs (12 hours) Temp Pulse Resp BP Pulse Ox 07/07/20 07:32 98.5 F 94 18 103/56 L 100 07/07/20 03:10 98.6 F 99 18 106/68 96 07/07/20 02:24 98 16 100 07/06/20 22:02 100 16 100 07/06/20 20:00 97.7 F 113 H 18 127/73 98 Weight Admit Weight 113 lb 9.6 oz Weight 119 lb 3.2 oz Most Recent Monitor Data Heart Rate from ECG 95 NIBP 95/59 NIBP BP-Mean 71 Respiration from ECG 21 SpO2 100 I&O: 07/06/20 07/07/20 07/08/20 06:59 06:59 06:59 Intake Total 1030 600 Output Total 2050 700 Balance -1020 -100 Result Diagrams: 07/06/20 03:18 07/06/20 03:18 Radiology Reviewed by me: Yes (gasseous distension of bowels and stomach) Hospitalist ROS - Review of Systems Constitutional: denies: fever, chills Respiratory: denies: cough, shortness of breath Cardiovascular: denies: chest pain, palpitations Gastrointestinal: reports: other (abdominal distention). denies: nausea, vomiting, abdominal pain - Medication Medications: Active Medications Generic Name Dose Route Start Last Admin Trade Name Freq PRN Reason Stop Dose Admin Acetaminophen 650 mg 06/27/20 06:41 07/07/20 00:04 Acetaminophen 325 Mg Tab PO 650 mg Q6H PRN Administration Headache/Fever or Pain Al Hydroxide/Mg Hydroxide 30 ml 06/29/20 00:34 06/29/20 08:51 Mag-Al 1200 Mg/1200 Mg/30 Ml Udcup PO 30 ml Q4H PRN Administration Heartburn or Indigestion Albuterol/Ipratropium 3 ml 06/26/20 22:30 07/07/20 02:24 Ipratropium/Albuterol Sulfate 3 Ml Neb NEB 3 ml [id number] CRESCENCIO Administration Alprazolam 0.25 mg 06/29/20 21:00 07/06/20 19:50 Alprazolam 0.25 Mg Tab PO 0.25 mg BID CRESCENCIO Administration Lidocaine HCl 20 ml/ Al 0 ml 06/29/20 14:24 06/30/20 09:04 Hydroxide/Mg Hydroxide 30 ml/ SSW 59 dose Atropine/Hyoscyam/Phenobarb/ Q4H PRN Administration Scopol 32.4 mg SORE THROAT Enoxaparin Sodium 30 mg 06/27/20 09:00 07/06/20 09:01 Enoxaparin Sodium 30 Mg/0.3 Ml Syringe SC 30 mg 0900 CRESCENCIO Administration Melatonin 3 mg 07/05/20 21:00 07/06/20 19:50 Melatonin 3 Mg Tab PO 3 mg HS CRESCENCIO Administration Ondansetron HCl 4 mg 06/27/20 13:04 06/29/20 16:40 Ondansetron Pf 4 Mg/2 Ml Vial IVP 4 mg Q6H PRN Administration Nausea/Vomiting Pantoprazole Sodium 40 mg 06/29/20 09:00 07/06/20 19:50 Pantoprazole 40 Mg Tab PO 40 mg BID CRESCENCIO Administration Polyethylene Glycol 17 gm 06/29/20 09:00 07/06/20 09:01 Polyethylene Glycol 3350 17 Gm Packet PO 17 gm DAILY CRESCENCIO Administration Senna/Docusate Sodium 1 tab 06/28/20 21:00 07/06/20 19:51 Senokot S 8.6-50 Mg Tab PO 1 tab BID CRESCENCIO Administration Sodium Chloride 10 ml 06/28/20 21:00 07/06/20 19:55 Flush - Normal Saline 10 Ml Syringe IVF 10 ml Q12HR CRESCENCIO Administration - Exam General Appearance: NAD, awake alert ENT: moist mucosa Heart: RRR, no murmur, no gallops, no rubs Respiratory: CTAB, no wheezes, no rales, no ronchi Gastrointestinal: soft, non-tender, normal bowel sounds Gastrointestinal - other findings: minimally distended Psychiatric: normal affect, normal behavior, A&O x 3 Hosp A/P (1) Acute systolic CHF (congestive heart failure) Code(s): I50.21 - ACUTE SYSTOLIC (CONGESTIVE) HEART FAILURE Status: Acute (2) Hypotension Status: Resolved (3) LUIS FELIPE (acute kidney injury) Code(s): N17.9 - ACUTE KIDNEY FAILURE, UNSPECIFIED Status: Resolved (4) Abdominal pain Code(s): R10.9 - UNSPECIFIED ABDOMINAL PAIN Status: Acute Qualifiers: Abdominal location: generalized Qualified Code(s): R10.84 - Generalized abdominal pain (5) Transaminitis Code(s): R74.01 - ELEVATION OF LEVELS OF LIVER TRANSAMINASE LEVELS Status: Acute (6) Hypokalemia Code(s): E87.6 - HYPOKALEMIA Status: Resolved (7) HTN (hypertension) Code(s): I10 - ESSENTIAL (PRIMARY) HYPERTENSION Status: Chronic Qualifiers: Hypertension type: essential hypertension Qualified Code(s): I10 - Essential (primary) hypertension - Plan PT/OT, social worker health services, respiratory therapy, out of bed/ambulate, DVT proph w/SCDs Stable overall Hold Entresto/Coreg/Aldactone due to hypotension Senokot-S/Dulcolax supp PRN Antiemetics/Lidocaine/Maalox Continue Dobutamine and wean as clinically tolerated, plan to try Entresto alone once improved Femoral Central line in for 6 days and mild swelling. Will consult surgery for line replacement. Advanced to heart healthy diet
[2020-07-07] MEDS: Enoxaparin Sodium 30 MG/0.3 ML SYRINGE SC SCH (08:53)
[2020-07-07] MEDS: ALPRAZolam 0.25 MG TAB PO SCH ×2 (08:53→19:53)
[2020-07-07] MEDS: Senokot S 8.6-50 MG TAB PO SCH ×2 (08:54→19:52)
[2020-07-07] MEDS: Polyethylene Glycol 3350 17 GM Packet PO SCH (08:54)
--- NOTE | 2020-07-07 09:52 | PRG ---
DATE OF SERVICE: 07/07/2020 SUBJECTIVE: Ms. Edmonds says she feels better. She is not short of breath. No chest pain. Her abdomen feels "bloated." She is not having abdominal pain. OBJECTIVE: VITAL SIGNS: Blood pressure 103/56 and pulse 104, it is sinus on the monitor. LUNGS: Clear. CARDIAC: She is tachycardic for rest. I think I do hear a soft S3. SKIN: Warm and dry. IMAGING DATA: Abdominal film looks like she is very distended with a very lot of gas in the small and large intestine. PERTINENT LABORATORY DATA: The most recent BNP is 2846. Creatinine is back down to normal at 0.7. ASSESSMENT: 1. Severely depressed left ventricular function, ejection fraction 15%. 2. Severe mitral regurgitation. 3. Sinus tachycardia. 4. Hypotension after she received low-dose Entresto and carvedilol. 5. Renal failure, resolved. Creatinine went to 2.22, but now down to 0.7. PLAN: 1. Encouraged the patient to get up and around to try to improve her gut motility. 2. Repeat BNP tomorrow. 3. May try again either with Entresto or SENDY inhibitor or angiotensin receptor azar to see if we can improve her heart failure, otherwise prognosis will be very poor. 4. We wish to discuss with heart failure specialist. Job ID: [id number]
[2020-07-07] MEDS: DOBUTamine 500 mg/250 ml 500 MG in Premix Bag 1 BAG IVPB SCH ×2 (12:20→17:17)
--- NOTE | 2020-07-07 16:30 | RAD ---
Chest one view HISTORY: Central line placement. COMPARISON: 07/02/2020. FINDINGS: Cardiac silhouette is magnified and upper limits of normal in size. Pulmonary vasculature is unremarkable. Mediastinum is midline with aortic calcification. Tip of a rig ht subclavian central venous catheter projects over the right atrium. Right lung is well-inflated. Left lateral costophrenic angle is excluded from the image. The left sulcus is deep on the current an d on the prior exam. Metallic clips overlie the right axilla. There are degenerative changes of the shoulders. IMPRESSION : Right subclavian central venous catheter is in good radiographic position. Atherosclerosis. Chronic-type findings are stable.
[2020-07-07] MEDS ORDERED: traMADol HCl 50 MG TAB PO SCH ×2 (17:30→18:15)
[2020-07-07] MEDS: Melatonin 3 MG TAB PO SCH (19:52)
--- NOTE | 2020-07-08 00:48 | OP ---
DATE OF PROCEDURE: 07/07/2020 PREOPERATIVE DIAGNOSIS: Chronic cardiomyopathy. POSTOPERATIVE DIAGNOSIS: Chronic cardiomyopathy. PROCEDURE PERFORMED: Placement of right subclavian triple-lumen central venous catheter. INDICATIONS FOR PROCEDURE: A 70-year-old woman admitted with acute on chronic cardiomyopathy. Patient is requiring inotropic support. I have been asked to place a central venous catheter to facilitate therapeutic intervention. DESCRIPTION OF PROCEDURE: Informed consent was obtained from the patient and she was placed in supine position. Left chest wall was sterilely prepped and draped in usual fashion. The skin below the left clavicle was anesthetized with 1% lidocaine plain. 18-gauge introducer needle was inserted into the left subclavian vein, returning dark venous blood. Guidewire was passed through the needle and advanced into the left subclavian vein and attempts to manipulate the guidewire at multiple passes, was unsuccessful. Therefore, the guidewire and the needle were removed. We then decided to utilize the right side. With a different setup, the right chest wall was then sterilely prepped and draped in usual fashion. The skin below the right clavicle was anesthetized with 1% lidocaine plain. The right subclavian vein was cannulated with an 18-gauge introducer needle returning dark venous blood. A guidewire was advanced through the needle and placed in the right subclavian vein without resistance. Needle was withdrawn. A stab incision was made adjacent to the guidewire using an 11 scalpel. Dilator was then passed over the guidewire dilating the subcutaneous tissues. Dilator was removed and a triple-lumen central venous catheter was advanced over the guidewire and placed in the right subclavian vein without resistance stopping at the 15 cm ramiro. Guidewire was removed. Dark venous blood was aspirated from all three ports, which were individually flushed with saline. Catheter was secured to anterior chest wall using 3-0 silk suture at two points. Sterile dressing was then applied. Portable chest x-ray was obtained, which confirmed proper placement of the right subclavian central venous catheter. No pneumothorax present. Job ID: [id number]
--- NOTE | 2020-07-08 07:41 | PDOC.HOSPP ---
- Subjective Encounter Date: 07/08/20 Encounter Time: 09:45 Subjective: Patient with pain at right SC CVL site yesterday, resolved today. No complaints. - Objective Vital Signs & Weight: Vital Signs (12 hours) Temp Pulse Resp BP Pulse Ox 07/08/20 03:21 98.7 F 102 H 16 114/63 98 07/08/20 02:15 105 H 20 99 07/07/20 22:10 101 H 20 99 07/07/20 19:48 98.5 F 111 H 18 117/67 98 Weight Admit Weight 113 lb 9.6 oz Weight 119 lb 3.2 oz Most Recent Monitor Data Heart Rate from ECG 95 NIBP 95/59 NIBP BP-Mean 71 Respiration from ECG 21 SpO2 100 I&O: 07/07/20 07/08/20 07/09/20 06:59 06:59 06:59 Intake Total 600 1032 Output Total 700 Balance -100 1032 Result Diagrams: 07/06/20 03:18 07/06/20 03:18 Hospitalist ROS - Review of Systems Constitutional: denies: fever, chills Respiratory: reports: SOB with excertion. denies: cough, shortness of breath Cardiovascular: denies: chest pain, palpitations Gastrointestinal: denies: nausea, vomiting, abdominal pain - Medication Medications: Active Medications Generic Name Dose Route Start Last Admin Trade Name Freq PRN Reason Stop Dose Admin Acetaminophen 650 mg 06/27/20 06:41 07/07/20 18:15 Acetaminophen 325 Mg Tab PO 650 mg Q6H PRN Administration Headache/Fever or Pain Al Hydroxide/Mg Hydroxide 30 ml 06/29/20 00:34 06/29/20 08:51 Mag-Al 1200 Mg/1200 Mg/30 Ml Udcup PO 30 ml Q4H PRN Administration Heartburn or Indigestion Albuterol/Ipratropium 3 ml 06/26/20 22:30 07/08/20 02:15 Ipratropium/Albuterol Sulfate 3 Ml Neb NEB 3 ml [id number] CRESCENCIO Administration Alprazolam 0.25 mg 06/29/20 21:00 07/07/20 19:53 Alprazolam 0.25 Mg Tab PO 0.25 mg BID CRESCENCIO Administration Lidocaine HCl 20 ml/ Al 0 ml 06/29/20 14:24 06/30/20 09:04 Hydroxide/Mg Hydroxide 30 ml/ SSW 59 dose Atropine/Hyoscyam/Phenobarb/ Q4H PRN Administration [place]opol 32.4 mg SORE THROAT Enoxaparin Sodium 30 mg 06/27/20 09:00 07/07/20 08:53 Enoxaparin Sodium 30 Mg/0.3 Ml Syringe SC 30 mg 0900 CRESCENCIO Administration Dobutamine HCl/Dextrose 500 mg 250 mls @ 2.433 mls/hr 07/07/20 10:45 07/07/20 17:17 / Device IVPB 250 mls INF CRESCENCIO Administration Protocol 1.5 MCG/KG/MIN Melatonin 3 mg 07/05/20 21:00 07/07/20 19:52 Melatonin 3 Mg Tab PO 3 mg HS CRESCENCIO Administration Ondansetron HCl 4 mg 06/27/20 13:04 06/29/20 16:40 Ondansetron Pf 4 Mg/2 Ml Vial IVP 4 mg Q6H PRN Administration Nausea/Vomiting Pantoprazole Sodium 40 mg 06/29/20 09:00 07/07/20 19:52 Pantoprazole 40 Mg Tab PO 40 mg BID CRESCENCIO Administration Polyethylene Glycol 17 gm 06/29/20 09:00 07/07/20 08:54 Polyethylene Glycol 3350 17 Gm Packet PO 17 gm DAILY CRESCENCIO Administration Senna/Docusate Sodium 1 tab 06/28/20 21:00 07/07/20 19:52 Senokot S 8.6-50 Mg Tab PO 1 tab BID CRESCENCIO Administration Sodium Chloride 10 ml 06/28/20 21:00 07/07/20 19:53 Flush - Normal Saline 10 Ml Syringe IVF 10 ml Q12HR CRESCENCIO Administration - Exam General Appearance: NAD, awake alert ENT: moist mucosa Heart: RRR, no murmur, no gallops, no rubs Respiratory: CTAB, no wheezes, no rales, no ronchi Gastrointestinal: soft, non-tender, non-distended, normal bowel sounds Psychiatric: normal affect, normal behavior, A&O x 3 Hosp A/P (1) Acute systolic CHF (congestive heart failure) Code(s): I50.21 - ACUTE SYSTOLIC (CONGESTIVE) HEART FAILURE Status: Acute (2) Hypotension Status: Resolved (3) LUIS FELIPE (acute kidney injury) Code(s): N17.9 - ACUTE KIDNEY FAILURE, UNSPECIFIED Status: Resolved (4) Abdominal pain Code(s): R10.9 - UNSPECIFIED ABDOMINAL PAIN Status: Acute Qualifiers: Abdominal location: generalized Qualified Code(s): R10.84 - Generalized abdominal pain (5) Transaminitis Code(s): R74.01 - ELEVATION OF LEVELS OF LIVER TRANSAMINASE LEVELS Status: Acute (6) Hypokalemia Code(s): E87.6 - HYPOKALEMIA Status: Resolved (7) HTN (hypertension) Code(s): I10 - ESSENTIAL (PRIMARY) HYPERTENSION Status: Chronic Qualifiers: Hypertension type: essential hypertension Qualified Code(s): I10 - Essential (primary) hypertension - Plan PT/OT, social worker psychiatric, respiratory therapy, out of bed/ambulate, DVT proph w/SCDs Stable overall Holding Entresto/Coreg/Aldactone due to hypotension Senokot-S/Dulcolax supp PRN Antiemetics/Lidocaine/Maalox Continue Dobutamine and wean as clinically tolerated, plan to try Entresto alone once improved Femoral Central line in for 6 days and mild swelling. Removed and new IJ placed by surgery. Advanced to heart healthy diet Spoke with Dr. Johnson and given the severity of her disease he wants to transfer her to a heart failure specialist in [place]. Arranging transfer right now.
[2020-07-08] MEDS: Senokot S 8.6-50 MG TAB PO SCH ×2 (07:53→20:49)
[2020-07-08] MEDS: Polyethylene Glycol 3350 17 GM Packet PO SCH (07:53)
[2020-07-08] MEDS: ALPRAZolam 0.25 MG TAB PO SCH ×2 (07:53→20:49)
[2020-07-08] MEDS: Enoxaparin Sodium 30 MG/0.3 ML SYRINGE SC SCH (07:53)
[2020-07-08] MEDS: DOBUTamine 500 mg/250 ml 500 MG in Premix Bag 1 BAG IVPB SCH (11:54)
--- NOTE | 2020-07-08 17:58 | PRG ---
DATE OF SERVICE: 07/08/2020 SUBJECTIVE: Ms. Edmonds is not short of breath in the sitting position. When she lays flat for some time period, she started feeling somewhat short of breath. No chest pain. OBJECTIVE: VITAL SIGNS: Her blood pressure earlier is 106/70, the pulse has been variable but is reported as low as 107, as high as 118. LUNGS: Clear. CARDIAC: She is tachycardic for rest. ABDOMEN: Soft and nontender. EXTREMITIES: No edema. ASSESSMENT: 1. Severely depressed left ventricular function. 2. Severe mitral regurgitation. 3. Episode of severe hypotension with low-dose Entresto superimposed on very low-dose carvedilol. PLAN: I have discussed the situation with the physicians at [facility]. Consideration for transfer there, cardiac catheterization with a higher level assist devices including pumps if needed. Arrangements were being made to transfer the patient. Job ID: [id number]
[2020-07-08] MEDS: Melatonin 3 MG TAB PO SCH (20:49)
[2020-07-09] MEDS: Senokot S 8.6-50 MG TAB PO SCH ×2 (08:42→21:52)
[2020-07-09] MEDS: Polyethylene Glycol 3350 17 GM Packet PO SCH (08:42)
[2020-07-09] MEDS: Enoxaparin Sodium 30 MG/0.3 ML SYRINGE SC SCH (08:44)
[2020-07-09] MEDS: ALPRAZolam 0.25 MG TAB PO SCH ×2 (08:44→21:52)
--- NOTE | 2020-07-09 12:25 | PRG ---
DATE OF SERVICE: 07/08/2020 SUBJECTIVE: Ms. Edmonds is not short of breath at rest, but when you try to lay her flat, she gets somewhat uncomfortable for a few minutes. OBJECTIVE: VITAL SIGNS: Her blood pressure is somewhat better at 117/71, earlier 114/63, but her pulse is in the 1 teens and it is sinus. LUNGS: Clear. CARDIAC: Normal S1, normal S2, but she is tachycardic. I think I hear a soft S3. There is no new murmur. ABDOMEN: Soft, nontender. EXTREMITIES: There is no edema. DIAGNOSTIC DATA: Most recent BNP was 2846 that was on the . As mentioned, the echocardiogram showed the ejection fraction to be about 15% with severe mitral regurgitation, dilated left ventricle, very dilated left atrium. EKG shows sinus rhythm with left ventricular hypertrophy. She has had intermittently during this hospitalization a right bundle-branch block as well. ASSESSMENT: 1. Congestive heart failure, systolic, very advanced. 2. Severe mitral regurgitation. 3. Very tenuous status. The patient deteriorated after being given low-dose Entresto a few days later with low-dose carvedilol, had to receive high- dose dobutamine and dopamine for a few days until she recovered. Spoke with Dr. Nidhi Carroll in [place] who graciously has accepted the patient in transfer to [facility] in [place]. Job ID: [id number]
--- NOTE | 2020-07-09 12:27 | PRG ---
DATE OF SERVICE: 07/08/2020 The reason for transfer is to higher level of care, in case the patient deteriorates during cardiac catheterization, further advanced heart failure therapy could be given such as left ventricular assist device or other mechanical circulatory support, also availability of complicated heart failure specialist. Job ID: [id number]
[2020-07-09 13:36] VITALS: BMI 19.1
--- NOTE | 2020-07-09 15:00 | PDOC.HOSPP ---
- Subjective Encounter Date: 07/09/20 Encounter Time: 15:00 Subjective: f/u for end-stage CHF with EF 15% pressor dependent on Dobutamine currently. Awaiting transfer to [facility] for higher level of care and advanced heart failure mgmt. - Objective Vital Signs & Weight: Vital Signs (12 hours) Temp Pulse Resp BP Pulse Ox 07/09/20 11:31 97.9 F 105 H 16 100/64 99 07/09/20 07:11 98.0 F 102 H 17 111/70 97 07/09/20 04:41 98.6 F 109 H 16 99/55 L 98 Weight Admit Weight 113 lb 9.6 oz Weight 115 lb 3.2 oz Most Recent Monitor Data Heart Rate from ECG 95 NIBP 95/59 NIBP BP-Mean 71 Respiration from ECG 21 SpO2 100 I&O: 07/08/20 07/09/20 07/10/20 06:59 06:59 06:59 Intake Total 1032 1100 Output Total 2050 Balance 1032 -950 Result Diagrams: 07/06/20 03:18 07/06/20 03:18 Additional Labs: Microbiology 06/27/20 23:36 Nasopharyngeal swab Respiratory Virus Panel (PCR) - Final Laboratory Tests 01/31/17 06/26/20 06/26/20 19:29 15:46 15:46 Lactic Acid AST 71 H ALT 124 H Alkaline Phosphatase B-Natriuretic Peptide 150.9 H 2005.9 H Creatine Kinase Lipase SARS-CoV-2 (PCR) Hepatitis A IgM Ab Hep Bs Antigen Hep B Core IgM Ab Hepatitis C Antibody 06/26/20 06/27/20 06/27/20 18:58 04:19 20:24 Lactic Acid AST 75 H ALT 139 H Alkaline Phosphatase B-Natriuretic Peptide Creatine Kinase Lipase 8 SARS-CoV-2 (PCR) Not Detected Hepatitis A IgM Ab Hep Bs Antigen Hep B Core IgM Ab Hepatitis C Antibody 06/27/20 06/27/20 06/27/20 21:22 21:22 21:22 Lactic Acid 2.9 H AST 70 H ALT 135 H Alkaline Phosphatase B-Natriuretic Peptide Creatine Kinase 516 H Lipase SARS-CoV-2 (PCR) Hepatitis A IgM Ab Hep Bs Antigen Hep B Core IgM Ab Hepatitis C Antibody 06/28/20 06/29/20 06/29/20 04:34 05:32 05:32 Lactic Acid 1.5 AST 90 H ALT 155 H Alkaline Phosphatase 80 B-Natriuretic Peptide Creatine Kinase Lipase SARS-CoV-2 (PCR) Hepatitis A IgM Ab Non-Reactive Hep Bs Antigen Non-Reactive Hep B Core IgM Ab Non-Reactive Hepatitis C Antibody Non-Reactive 07/01/20 07/01/20 04:16 20:11 Lactic Acid 2.8 H AST ALT Alkaline Phosphatase B-Natriuretic Peptide 2846.1 H Creatine Kinase Lipase SARS-CoV-2 (PCR) Hepatitis A IgM Ab Hep Bs Antigen Hep B Core IgM Ab Hepatitis C Antibody EKG Reviewed by me: Yes (Tele - sinus tachycardia in low-100's) Hospitalist ROS - Medication Medications: Active Medications Generic Name Dose Route Start Last Admin Trade Name Freq PRN Reason Stop Dose Admin Acetaminophen 650 mg 06/27/20 06:41 07/07/20 18:15 Acetaminophen 325 Mg Tab PO 650 mg Q6H PRN Administration Headache/Fever or Pain Al Hydroxide/Mg Hydroxide 30 ml 06/29/20 00:34 06/29/20 08:51 Mag-Al 1200 Mg/1200 Mg/30 Ml Udcup PO 30 ml Q4H PRN Administration Heartburn or Indigestion Alprazolam 0.25 mg 06/29/20 21:00 07/09/20 08:44 Alprazolam 0.25 Mg Tab PO 0.25 mg BID CRESCENCIO Administration Lidocaine HCl 20 ml/ Al 0 ml 06/29/20 14:24 06/30/20 09:04 Hydroxide/Mg Hydroxide 30 ml/ SSW 59 dose Atropine/Hyoscyam/Phenobarb/ Q4H PRN Administration Scopol 32.4 mg SORE THROAT Enoxaparin Sodium 30 mg 06/27/20 09:00 07/09/20 08:44 Enoxaparin Sodium 30 Mg/0.3 Ml Syringe SC 30 mg 0900 CRESCENCIO Administration Dobutamine HCl/Dextrose 500 mg 250 mls @ 2.433 mls/hr 07/07/20 10:45 07/08/20 11:54 / Device IVPB 250 mls INF CRESCENCIO Administration 1.5 MCG/KG/MIN Melatonin 3 mg 07/05/20 21:00 07/08/20 20:49 Melatonin 3 Mg Tab PO 3 mg HS CRESCENCIO Administration Ondansetron HCl 4 mg 06/27/20 13:04 06/29/20 16:40 Ondansetron Pf 4 Mg/2 Ml Vial IVP 4 mg Q6H PRN Administration Nausea/Vomiting Pantoprazole Sodium 40 mg 06/29/20 09:00 07/09/20 08:44 Pantoprazole 40 Mg Tab PO 40 mg BID CRESCENCIO Administration Polyethylene Glycol 17 gm 06/29/20 09:00 07/09/20 08:42 Polyethylene Glycol 3350 17 Gm Packet PO Not Given DAILY CRESCENCIO Senna/Docusate Sodium 1 tab 06/28/20 21:00 07/09/20 08:42 Senokot S 8.6-50 Mg Tab PO Not Given BID CRESCENCIO Sodium Chloride 10 ml 06/28/20 21:00 07/09/20 08:44 Flush - Normal Saline 10 Ml Syringe IVF 10 ml Q12HR CRESCENCIO Administration - Exam General Appearance: NAD, awake alert Eye: PERRL, anicteric sclera ENT: normocephalic atraumatic, no oropharyngeal lesions Neck: supple, symmetric, no JVD, no thyromegaly, no lymphadenopathy Heart: no gallops, no rubs, normal peripheral pulses Heart - other findings: S1, S2 tachycardic Respiratory: CTAB, no wheezes, no rales, no ronchi, normal chest expansion Gastrointestinal: soft, non-tender, non-distended, normal bowel sounds, no palpable masses Extremities: no cyanosis, no clubbing, no edema Skin: normal turgor, no lesions Neurological: cranial nerve grossly intact, no new deficit Musculoskeletal: normal tone, generalized weakness Psychiatric: normal affect, oriented to person, oriented to place Hosp A/P (1) Acute systolic CHF (congestive heart failure) Code(s): I50.21 - ACUTE SYSTOLIC (CONGESTIVE) HEART FAILURE Status: Acute Plan: EF 15%, continues to require inotropic support with Dobutamine, awaiting transfer to [facility] (2) Hypotension Status: Acute Plan: Secondary to advanced heart failure, holding all antihypertensives/Entresto (3) LUIS FELIPE (acute kidney injury) Code(s): N17.9 - ACUTE KIDNEY FAILURE, UNSPECIFIED Status: Acute Plan: Resolved, avoid nephrotoxic meds and limit contrast (4) Abdominal pain Code(s): R10.9 - UNSPECIFIED ABDOMINAL PAIN Status: Acute Qualifiers: Abdominal location: generalized Qualified Code(s): R10.84 - Generalized abdominal pain Plan: Likely due to advanced CHF, supportive mgmt (5) Transaminitis Code(s): R74.01 - ELEVATION OF LEVELS OF LIVER TRANSAMINASE LEVELS Status: Ac [place] Plan: Resolving, likely due to CHF (6) Hypokalemia Code(s): E87.6 - HYPOKALEMIA Status: Acute Plan: Resolving (7) HTN (hypertension) Code(s): I10 - ESSENTIAL (PRIMARY) HYPERTENSION Status: Chronic Qualifiers: Hypertension type: essential hypertension Qualified Code(s): I10 - Essential (primary) hypertension Plan: Actual hypotension currently due to advanced heart failure - Plan PT/OT, psychiatric social worker, respiratory therapy, out of bed/ambulate, DVT proph w/SCDs Stable overall Hold Entresto/Coreg/Aldactone due to hypotension Senokot-S/Dulcolax supp PRN Antiemetics/Lidocaine/Maalox Continue Dobutamine and wean as clinically tolerated Advance to heart health diet Likely transfer to [facility] in 24h
[2020-07-09] MEDS: Melatonin 3 MG TAB PO SCH (21:52)
[2020-07-10] MEDS: Senokot S 8.6-50 MG TAB PO SCH (09:58)
[2020-07-10] MEDS: Polyethylene Glycol 3350 17 GM Packet PO SCH (09:58)
[2020-07-10] MEDS: Enoxaparin Sodium 30 MG/0.3 ML SYRINGE SC SCH (09:59)
--- NOTE | 2020-07-10 15:52 | PDOC.PALPN ---
Palliative Progress Note - Subjective Resting, states she is "fine holding still" but gets short of breath with minimal activity. Awaiting transfer to [facility]. Dependent on Dobutamine. - Objective Vital Signs: Vital Signs - Most Recent Temp Pulse Resp BP Pulse Ox 98.4 F 97 16 95/59 L 98 07/10/20 11:35 07/10/20 11:35 07/10/20 11:35 07/10/20 11:35 07/10/20 11:35 - Physical Exam Constitutional: ill appearing HEENT: EOMI, moist MMs, scleral icterus Respiratory: clear to auscultation bilateral, no rales, no rhonchi, no wheezing Cardiovascular: RRR Gastrointestinal: soft, non-tender, no distention, positive bowel sounds Musculoskeletal: no cyanosis, no edema Neurology: moves all 4 limbs, no focal deficits Skin: cap refill <2 seconds Psychiatric: A&O x 3, normal affect, normal mood - Assessment (1) Palliative care encounter Code(s): Z51.5 - ENCOUNTER FOR PALLIATIVE CARE Current Visit: Yes Status: Acute (2) LUIS FELIPE (acute kidney injury) Code(s): N17.9 - ACUTE KIDNEY FAILURE, UNSPECIFIED Current Visit: Yes Status: Acute (3) Acute systolic CHF (congestive heart failure) Code(s): I50.21 - ACUTE SYSTOLIC (CONGESTIVE) HEART FAILURE Current Visit: Yes Status: Acute (4) Hypotension Current Visit: Yes Status: Acute (5) Transaminitis Code(s): R74.01 - ELEVATION OF LEVELS OF LIVER TRANSAMINASE LEVELS Current Visit: Yes Status: Acute - Plan Plan: Patient awaiting transfer to [facility]. Reinforced the reason "why" as patient was unable to perform a teach back. Revisited it was for a higher level of care related to heart failure. Consideration for a cardiac catheterization if she deteriorates, as well as possible left ventricular assist device. Discussed her desire to continue with aggressive measures at this time. Fatigued at times with meals, encouraged to eat small portions more frequently. Discussed measures to conserve energy, O2 support and Head of the Bed raised to prevent shortness of breath. Palliative Care will sign off as Goal of care has been addressed and Mrs Edmonds is awaiting transfer to [facility] in [place]. [35] minutes spent on this encounter with >50% of the time in counseling and coordination of care. - ROS Constitutional: alert, weakness ENT: other (Denies congestion, throat irritation) Respiratory: shortness of breath with extertion, other Cardiology: other (Denies chest pain, discomfort) Gastrointestinal: other (Denies vomiting, nausea) Musculoskeletal: arthritis/arthralgias Skin: other (Denies rash, puritis)
--- NOTE | 2020-07-10 15:57 | PDOC.HOSPP ---
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 Awaiting bed availability at [facility]. - Objective Vital Signs & Weight: Vital Signs (12 hours) Temp Pulse Resp BP Pulse Ox 07/10/20 11:35 98.4 F 97 16 95/59 L 98 07/10/20 07:40 97.6 F 101 H 16 110/69 98 07/10/20 04:00 97.5 F L 100 18 103/71 97 Weight Admit Weight 113 lb 9.6 oz Weight 119 lb 1.6 oz Most Recent Monitor Data Heart Rate from ECG 95 NIBP 95/59 NIBP BP-Mean 71 Respiration from ECG 21 SpO2 100 I&O: 07/09/20 07/10/20 07/11/20 06:59 06:59 06:59 Intake Total 1100 640 Output Total 2050 2000 Balance -950 -1360 Result Diagrams: 07/06/20 03:18 07/06/20 03:18 Additional Labs: Microbiology 06/27/20 23:36 Nasopharyngeal swab Respiratory Virus Panel (PCR) - Final Laboratory Tests 01/31/17 06/26/20 06/26/20 19:29 15:46 15:46 Lactic Acid AST 71 H ALT 124 H Alkaline Phosphatase B-Natriuretic Peptide 150.9 H 2005.9 H Creatine Kinase Lipase SARS-CoV-2 (PCR) Hepatitis A IgM Ab Hep Bs Antigen Hep B Core IgM Ab Hepatitis C Antibody 06/26/20 06/27/20 06/27/20 18:58 04:19 20:24 Lactic Acid AST 75 H ALT 139 H Alkaline Phosphatase B-Natriuretic Peptide Creatine Kinase Lipase 8 SARS-CoV-2 (PCR) Not Detected Hepatitis A IgM Ab Hep Bs Antigen Hep B Core IgM Ab Hepatitis C Antibody 06/27/20 06/27/20 06/27/20 21:22 21:22 21:22 Lactic Acid 2.9 H AST 70 H ALT 135 H Alkaline Phosphatase B-Natriuretic Peptide Creatine Kinase 516 H Lipase SARS-CoV-2 (PCR) Hepatitis A IgM Ab Hep Bs Antigen Hep B Core IgM Ab Hepatitis C Antibody 06/28/20 06/29/20 06/29/20 04:34 05:32 05:32 Lactic Acid 1.5 AST 90 H ALT 155 H Alkaline Phosphatase 80 B-Natriuretic Peptide Creatine Kinase Lipase SARS-CoV-2 (PCR) Hepatitis A IgM Ab Non-Reactive Hep Bs Antigen Non-Reactive Hep B Core IgM Ab Non-Reactive Hepatitis C Antibody Non-Reactive 07/01/20 07/01/20 04:16 20:11 Lactic Acid 2.8 H AST ALT Alkaline Phosphatase B-Natriuretic Peptide 2846.1 H Creatine Kinase Lipase SARS-CoV-2 (PCR) Hepatitis A IgM Ab Hep Bs Antigen Hep B Core IgM Ab Hepatitis C Antibody EKG Reviewed by me: Yes (Tele - SR) Hospitalist ROS - Medication Medications: Active Medications Generic Name Dose Route Start Last Admin Trade Name Freq PRN Reason Stop Dose Admin Acetaminophen 650 mg 06/27/20 06:41 07/07/20 18:15 Acetaminophen 325 Mg Tab PO 650 mg Q6H PRN Administration Headache/Fever or Pain Al Hydroxide/Mg Hydroxide 30 ml 06/29/20 00:34 06/29/20 08:51 Mag-Al 1200 Mg/1200 Mg/30 Ml Udcup PO 30 ml Q4H PRN Administration Heartburn or Indigestion Lidocaine HCl 20 ml/ Al 0 ml 06/29/20 14:24 06/30/20 09:04 Hydroxide/Mg Hydroxide 30 ml/ SSW 59 dose Atropine/Hyoscyam/Phenobarb/ Q4H PRN Administration Scopol 32.4 mg SORE THROAT Enoxaparin Sodium 30 mg 06/27/20 09:00 07/10/20 09:59 Enoxaparin Sodium 30 Mg/0.3 Ml Syringe SC 30 mg 0900 CRESCENCIO Administration Dobutamine HCl/Dextrose 500 mg 250 mls @ 2.433 mls/hr 07/07/20 10:45 07/08/20 11:54 / Device IVPB 250 mls INF CRESCENCIO Administration 1.5 MCG/KG/MIN Melatonin 3 mg 07/05/20 21:00 07/09/20 21:52 Melatonin 3 Mg Tab PO 3 mg HS CRESCENCIO Administration Ondansetron HCl 4 mg 06/27/20 13:04 06/29/20 16:40 Ondansetron Pf 4 Mg/2 Ml Vial IVP 4 mg Q6H PRN Administration Nausea/Vomiting Pantoprazole Sodium 40 mg 06/29/20 09:00 07/10/20 09:58 Pantoprazole 40 Mg Tab PO 40 mg BID CRESCENCIO Administration Polyethylene Glycol 17 gm 06/29/20 09:00 07/10/20 09:58 Polyethylene Glycol 3350 17 Gm Packet PO 17 gm DAILY CRESCENCIO Administration Senna/Docusate Sodium 1 tab 06/28/20 21:00 07/10/20 09:58 Senokot S 8.6-50 Mg Tab PO 1 tab BID CRESCENCIO Administration Sodium Chloride 10 ml 06/28/20 21:00 07/10/20 09:59 Flush - Normal Saline 10 Ml Syringe IVF 10 ml Q12HR CRESCENCIO Administration - Exam General Appearance: NAD, awake alert Eye: PERRL, anicteric sclera ENT: normocephalic atraumatic, no oropharyngeal lesions Neck: supple, symmetric, no JVD, no thyromegaly, no lymphadenopathy Heart: RRR, no gallops, no rubs, normal peripheral pulses, murmur present Heart - other findings: S1, S2 Respiratory: CTAB, no wheezes, no rales, no ronchi, normal chest expansion, no tachypnea Gastrointestinal: soft, non-tender, non-distended, normal bowel sounds, no palpable masses Extremities: no cyanosis, no clubbing, no edema Skin: normal turgor, no lesions Neurological: cranial nerve grossly intact, no new deficit Musculoskeletal: normal tone, generalized weakness, diffuse muscle atrophy Psychiatric: oriented to person, oriented to place, flat affect Hosp A/P (1) Acute systolic CHF (congestive heart failure) Code(s): I50.21 - ACUTE SYSTOLIC (CONGESTIVE) HEART FAILURE Status: Acute (2) Hypotension Status: Acute (3) LUIS FELIPE (acute kidney injury) Code(s): N17.9 - ACUTE KIDNEY FAILURE, UNSPECIFIED Status: Acute (4) Abdominal pain Code(s): R10.9 - UNSPECIFIED ABDOMINAL PAIN Status: Acute Qualifiers: Qualified Code(s): R10.84 - Generalized abdominal pain (5) Transaminitis Code(s): R74.01 - ELEVATION OF LEVELS OF LIVER TRANSAMINASE LEVELS Status: Acute (6) Hypokalemia Code(s): E87.6 - HYPOKALEMIA Status: Acute (7) HTN (hypertension) Code(s): I10 - ESSENTIAL (PRIMARY) HYPERTENSION Status: Chronic Qualifiers: Qualified Code(s): I10 - Essential (primary) hypertension - Plan 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
[2020-07-10 16:35] VITALS: TEMP 98.2
[2020-07-10 18:18] VITALS: BP 113/73
--- NOTE | 2020-07-13 08:20 | DIS ---
DATE OF ADMISSION: 06/27/2020 DATE OF DISCHARGE: 07/10/2020 DISCHARGE DIAGNOSES: 1. Acute systolic congestive heart failure with ejection fraction of 15%. 2. Cardiomyopathy, presumed ischemic. 3. Hypotension secondary to #1, pressor dependent with dobutamine. 4. Acute kidney injury, resolved. 5. Abdominal pain secondary to #1, improved. 6. Transaminitis secondary to hepatic congestion, improved. 7. Hypokalemia, resolving. 8. Hypertension, chronic. 9. Dementia. CONSULTATIONS: 1. Dr. Johnson with Cardiology Service. 2. Dr. Espinoza with General Surgery Service. 3. Dr. Montaño with Pulmonology Critical Care Service. 4. Dr. Tinsley with GI Service. PERTINENT LABORATORY AND X-RAY FINDINGS: Potassium ranged between 2.9 to 4.4. Creatinine ranged between 0.68-2.22. Lactic acid level ranged between 1.5 to 2.9. Phosphorus 3.4, magnesium level 2.3. Troponin I ranged between 0.010 to 0.046. BNP ranged between 2006 and 2846. CBC showed a white blood cell count ranging between 4.5 to 11.9. Hepatitis A, B, and C panel negative on 06/29/2020. COVID-19 PCR not detected on 06/26/2020. Respiratory viral panel dated 06/27/2020 negative. Portable chest x-ray dated 06/26/2020, showed mild pulmonary vascular prominence and small bilateral pleural effusions. CT of the abdomen and pelvis dated 06/27/2020, showed no acute process. Limited exam without IV or oral contrast. CT angiogram of the abdomen and pelvis dated 06/27/2020, showed no evidence of significant vascular stenosis. 2D transthoracic echocardiogram dated 06/28/2020, showed ejection fraction of 15%. Severe left atrial enlargement. Severe mitral regurgitation. [id number] tricuspid regurgitation. Abdominal ultrasound dated 06/30/2020, showed negative findings. EGD dated 06/30/2020 showed minimal gastritis in the body of the stomach. Portable chest x-ray dated 07/02/2020, showed no acute cardiopulmonary process. HOSPITAL COURSE: The patient was initially admitted after presenting with chest pain and shortness of breath in the context of known hypertension. The patient underwent extensive evaluation including chest imaging showing mild bilateral pulmonary edema. The patient initially received IV Solu-Medrol, IV Lasix, and aspirin. 2D transthoracic echocardiogram was performed showing an ejection fraction of 15% with severe mitral regurgitation. Cardiology consultation was obtained at which point, the patient was attempted on IV Lasix for diuretic therapy. The patient was unable to tolerate due to hypotension necessitating transfer to the Intermediate Care Unit and placed up on pressor support with dobutamine. The patient had persistent hypotension requiring additional dopamine after the acute kidney injury was observed. The patient's acute kidney injury did resolve rapidly with dopamine support and this was titrated and eventually discontinued. The patient continued to require a low-dose of dobutamine for pressure support throughout the hospital course. The patient underwent evaluation for persistent abdominal pain initially felt to be secondary to hepatic congestion from heart failure. EGD evaluation showed mild gastritis, however, no specific acute pathology was observed to explain patient's generalized abdominal pain other than heart failure. The patient eventually improved in regard to abdominal pain and was tolerating regular oral intake by the time of transfer. Due to the patient's advanced cardiomyopathy and need for specialized heart failure management with potential left heart catheterization to determine coronary anatomy and rule out underlying ischemia, the patient was deemed an appropriate candidate to transfer to a higher level of care for advanced heart failure therapeutics. The patient has been approved to transfer to [facility] in [place], [place], to continue aggressive therapy and monitoring. I have examined the patient at the time of discharge and discussed followup instructions. The patient verbalizes understanding and agreement and ready for discharge on 07/10/2020. DISCHARGE MEDICATIONS: 1. Dobutamine continuous. 2. Aricept 5 mg p.o. daily. 3. Celexa 10 mg p.o. daily. 4. Namenda 5 mg p.o. daily. 5. DuoNeb 3 mL nebulized q.4 hours p.r.n. 6. Lovenox 30 mg subcutaneously daily. 7. Melatonin 3 mg p.o. at bedtime. 8. MiraLAX 17 g p.o. daily. 9. Nitroglycerin 0.4 mg sublingually q.5 minutes chest pain. 10. Protonix 40 mg p.o. b.i.d. Entresto, Coreg, and Aldactone were unable to be continued due to severe hypotension and then ongoing need for dobutamine support. FOLLOWUP: The patient may follow up with her primary care provider, Dr. Elliot Powers after discharge from [facility]. CONDITION ON DISCHARGE: Guarded. ACTIVITY: Ad maged, rolling walker with standby assistance. DIET: Heart healthy. SUPPLEMENTS: Ensure Enlive b.i.d. CODE STATUS: Full. DISPOSITION: Transferred to [facility] in [place], [place] on 07/10/2020. TIME SPENT: Total time preparing and coordinating discharge, 37 minutes. Job ID: [id number]
== END 2020-07-10 19:20 | disposition short-term general hospital (02) | DRG 291 ==
LOC: ERS 15:15 → 2SW 17:33 → OBSVTOIN 06-27 20:39 → 2NO 06-28 07:53 → CCU 07-01 20:16 → 2NO 07-04 17:14
PROVIDERS: ADMIT Student in an Organized Health Care Education/Training Program; ATTEND Emergency Medicine
PROC: 0DJ08ZZ Inspection of Upper Intestinal Tract, Via Natural or Artificial Opening Endoscopic (ICD-10-PCS; principal; 2020-06-30)
PROC: 3E033XZ Introduction of Vasopressor into Peripheral Vein, Percutaneous Approach (ICD-10-PCS; 2020-06-30)
PROC: 06HY33Z Insertion of Infusion Device into Lower Vein, Percutaneous Approach (ICD-10-PCS; 2020-07-02)
PROC: 02H633Z Insertion of Infusion Device into Right Atrium, Percutaneous Approach (ICD-10-PCS; 2020-07-07)
DX: I11.0 Hypertensive heart disease with heart failure (principal); I50.21 Acute systolic (congestive) heart failure; J44.1 Chronic obstructive pulmonary disease with (acute) exacerbation; E44.0 Moderate protein-calorie malnutrition; Z68.1 Body mass index [BMI] 19.9 or less, adult; N17.9 Acute kidney failure, unspecified; Z20.828 Contact with and (suspected) exposure to other viral communicable diseases; E86.0 Dehydration; K21.9 Gastro-esophageal reflux disease without esophagitis; E87.6 Hypokalemia; K76.1 Chronic passive congestion of liver; I34.0 Nonrheumatic mitral (valve) insufficiency; I42.8 Other cardiomyopathies; R74.01 Elevation of levels of liver transaminase levels; R10.84 Generalized abdominal pain; K29.60 Other gastritis without bleeding; K59.00 Constipation, unspecified; G62.9 Polyneuropathy, unspecified; I95.9 Hypotension, unspecified; Z85.3 Personal history of malignant neoplasm of breast; Z85.850 Personal history of malignant neoplasm of thyroid; Z90.11 Acquired absence of right breast and nipple; Z90.710 Acquired absence of both cervix and uterus; Z88.5 Allergy status to narcotic agent; Z91.041 Radiographic dye allergy status
CPT/HCPCS: 36415; 36416; 71045; 74018; 74174; 74176; 76705; 80048; 80053; 80074; 81003; 82550; 83605; 83690; 83735; 83880; 84100; 84484; 85025; 85610; 85730; 87633; 87635; 93005; 93010; 93306; 93798; 93975; 94640; 94644; 94760; 96372; 96374; 96375; 96376; C9113; G0378; J1200; J1250; J1265; J1650; J1940; J2250; J2405; J2550; J2930; J3475; J7611; J7620; Q9967; S0028; U0003

== ENCOUNTER 2021-05-21 12:18 | Outpatient (CLI) | payer MEDICARE | END 2021-05-21 12:19 | disposition home or self-care (01) | LOC: BICRAD 12:18 | PROVIDERS: ATTEND Family Medicine | DX: R07.9 Chest pain, unspecified (principal) | CPT/HCPCS: 71046 ==

== ENCOUNTER 2021-05-25 17:05 | Emergency (ER) | payer MEDICARE ==
[2021-05-25 17:55] LABS: #Basophils 0.1 thou/uL (0.0-0.2); #Neutrophils 5.6 thou/uL (1.40-6.50); %Eosinophils 0.4 % (0.0-10.0); %Lymphocytes 30.3 % (21.0-51.0); %Monocytes 10.5 % (0.0-10.0); %Neutrophils 57.8 % (42.0-75.0); Hemoglobin 13.2 g/dL (12.0-16.0); Mean Corpuscular HGB CONC 33.5 g/dL (32.0-36.0); Mean Corpuscular Hemoglobin 30.4 pg (27.0-31.0); Mean Corpuscular Volume 90.9 fL (78.0-98.0); Mean Platelet Volume 7.5 fL (7.4-10.4); Platelet Count 264 thou/uL (130-400); Red Blood Cell (RBC) Count 4.32 mill/uL (4.20-5.40); White Blood Cell (WBC) Count 9.7 thou/uL (4.8-10.8)
[2021-05-25 18:20] LABS: ALT (SGPT) 15 U/L (8-55); AST (SGOT) 27 U/L (5-34); Albumin 4.1 g/dL (3.4-4.8); Alkaline Phosphatase 105 U/L (40-110); Anion Gap 16 mmol/L (10-20); BUN (Urea Nitrogen) 17 mg/dL (9.8-20.1); Bilirubin, Total 0.4 mg/dL (0.2-1.2); Calc. Creatinine Clearance 0 mL/min (70-130); Calcium 9.3 mg/dL (7.8-10.44); Carbon Dioxide 23 mmol/L (23-31); Chloride 103 mmol/L (98-107); Globulin 3.7 g/dL (2.4-3.5); Glucose 91 mg/dL (83-110); Lipase 33 U/L (8-78); Potassium 4.2 mmol/L (3.5-5.1); Protein, Total 7.8 g/dL (5.8-8.1); Sodium 138 mmol/L (136-145)
[2021-05-25] MEDS ORDERED: Acetaminophen 500 MG TAB ONE (20:15)
[2021-05-25] MEDS ORDERED: Ketorolac Tromethamine 30 MG/ML VIAL ONE (20:16)
== END 2021-05-25 20:40 | disposition home or self-care (01) ==
LOC: ERS 17:05
DX: R07.89 Other chest pain (principal); K21.9 Gastro-esophageal reflux disease without esophagitis; I11.0 Hypertensive heart disease with heart failure; I50.9 Heart failure, unspecified; I70.0 Atherosclerosis of aorta; E55.9 Vitamin D deficiency, unspecified; G62.9 Polyneuropathy, unspecified; Z87.891 Personal history of nicotine dependence; Z85.3 Personal history of malignant neoplasm of breast; Z79.899 Other long term (current) drug therapy; Z79.82 Long term (current) use of aspirin
CPT/HCPCS: 36415; 71045; 80053; 83690; 83880; 84484; 85025; 93005; 94760; 96372; J1885

== ENCOUNTER 2021-09-24 12:44 | Emergency (ER) | payer MEDICARE ==
[2021-09-24 14:54] LABS: #Lymphocytes 0.6 thou/uL (1.20-3.40); #Monocytes 0.1 thou/uL (0.11-0.59); #Neutrophils 4.7 thou/uL (1.40-6.50); %Basophils 0.3 % (0.0-1.0); %Lymphocytes 10.5 % (21.0-51.0); %Monocytes 1.9 % (0.0-10.0); %Neutrophils 87.2 % (42.0-75.0); Hemoglobin 13.1 g/dL (12.0-16.0); Mean Corpuscular HGB CONC 31.4 g/dL (32.0-36.0); Mean Corpuscular Hemoglobin 28.5 pg (27.0-31.0); Mean Corpuscular Volume 90.8 fL (78.0-98.0); Mean Platelet Volume 8.6 fL (7.4-10.4); Platelet Count 146 thou/uL (130-400); RBC Distribution Width 13.2 % (11.5-14.5); Red Blood Cell (RBC) Count 4.61 mill/uL (4.20-5.40); White Blood Cell (WBC) Count 5.4 thou/uL (4.8-10.8)
[2021-09-24 14:55] LABS: ALT (SGPT) 19 U/L (8-55); AST (SGOT) 24 U/L (5-34); Albumin 3.8 g/dL (3.4-4.8); Alkaline Phosphatase 86 U/L (40-110); Anion Gap 21 mmol/L (10-20); BUN (Urea Nitrogen) 25 mg/dL (9.8-20.1); Bilirubin, Total 0.8 mg/dL (0.2-1.2); Calc. Creatinine Clearance 0 mL/min (70-130); Calcium 8.6 mg/dL (7.8-10.44); Carbon Dioxide 16 mmol/L (23-31); Chloride 109 mmol/L (98-107); Globulin 2.8 g/dL (2.4-3.5); Glucose 126 mg/dL (83-110); Lipase 11 U/L (8-78); Potassium 4.3 mmol/L (3.5-5.1); Protein, Total 6.6 g/dL (5.8-8.1); Sodium 142 mmol/L (136-145)
[2021-09-24] MEDS ORDERED: Pantoprazole 40 MG VIAL ONE (15:36)
== END 2021-09-24 16:05 | disposition home or self-care (01) ==
LOC: ERS 12:44
DX: R11.2 Nausea with vomiting, unspecified (principal); K21.9 Gastro-esophageal reflux disease without esophagitis; I11.0 Hypertensive heart disease with heart failure; I50.9 Heart failure, unspecified; Z87.891 Personal history of nicotine dependence; Z79.82 Long term (current) use of aspirin
CPT/HCPCS: 36415; 74176; 80053; 83690; 84484; 85025; 93005; 96374; C9113

== ENCOUNTER 2021-09-25 01:55 | Inpatient (IN) | payer MEDICARE ==
[2021-09-25] MEDS ORDERED: Ondansetron PF 4 MG/2 ML Vial ONE (02:35)
[2021-09-25 03:32] LABS: #Lymphocytes 1.3 thou/uL (1.20-3.40); #Monocytes 0.3 thou/uL (0.11-0.59); #Neutrophils 7.5 thou/uL (1.40-6.50); %Basophils 0.1 % (0.0-1.0); %Eosinophils 0.2 % (0.0-10.0); %Lymphocytes 13.7 % (21.0-51.0); %Monocytes 3.6 % (0.0-10.0); %Neutrophils 82.4 % (42.0-75.0); Hemoglobin 13.7 g/dL (12.0-16.0); Mean Corpuscular HGB CONC 31.5 g/dL (32.0-36.0); Mean Corpuscular Hemoglobin 28.6 pg (27.0-31.0); Mean Corpuscular Volume 90.8 fL (78.0-98.0); Mean Platelet Volume 8.8 fL (7.4-10.4); Platelet Count 169 thou/uL (130-400); RBC Distribution Width 13.4 % (11.5-14.5); Red Blood Cell (RBC) Count 4.79 mill/uL (4.20-5.40); White Blood Cell (WBC) Count 9.1 thou/uL (4.8-10.8)
[2021-09-25 04:37] LABS: ALT (SGPT) 44 U/L (8-55); AST (SGOT) 49 U/L (5-34); Albumin 4.1 g/dL (3.4-4.8); Alkaline Phosphatase 90 U/L (40-110); Anion Gap 21 mmol/L (10-20); BUN (Urea Nitrogen) 29 mg/dL (9.8-20.1); Bilirubin, Total 1.7 mg/dL (0.2-1.2); Calc. Creatinine Clearance 0 mL/min (70-130); Carbon Dioxide 19 mmol/L (23-31); Chloride 105 mmol/L (98-107); Globulin 3.3 g/dL (2.4-3.5); Glucose 173 mg/dL (83-110); Lipase 5 U/L (8-78); Potassium 4.2 mmol/L (3.5-5.1); Protein, Total 7.4 g/dL (5.8-8.1); Sodium 141 mmol/L (136-145)
[2021-09-25] MEDS ORDERED: Famotidine 20 MG TAB ONE (05:22)
[2021-09-25] MEDS ORDERED: diphenhydrAMINE 50 MG/ML VIAL ONE (05:22)
[2021-09-25] MEDS ORDERED: methylPREDNISolone Sod Succ 40 MG VIAL ONE (05:22)
[2021-09-25] MEDS ORDERED: Famotidine/PF 20 mg/2ml Vial ONE (05:23)
[2021-09-25 06:29] LABS: CKMB 3.1 ng/mL (0-6.6)
[2021-09-25 06:43] LABS: SARS-CoV-2 NAA Rapid Test Not Detected (NotDetected)
[2021-09-25] MEDS ORDERED: Lorazepam 2 MG/ML VIAL ONE (06:47)
[2021-09-25] MEDS ORDERED: Furosemide 20 MG/2 ML VIAL ONE (08:52)
[2021-09-25] MEDS ORDERED: Acetaminophen 325 MG TAB PO PRN (09:02)
[2021-09-25] MEDS ORDERED: Acetaminophen 650 MG Suppository PR PRN (09:02)
[2021-09-25] MEDS ORDERED: cefTRIAXone\\ROCEPHIN 1 GM VIAL ONE (09:31)
[2021-09-25] MEDS ORDERED: Nitroglycerin 2% Ointment 1 INCH/1 GM Packet ONE (09:31)
[2021-09-25 09:59] LABS: Troponin I 0.098 ng/mL (< 0.028)
[2021-09-25] MEDS ORDERED: Electrolyte Replacement Protocol 1 EACH FS SCH (10:45)
[2021-09-25 10:53] LABS: Bacteria/HPF Rare-Few HPF (None Seen); Bilirubin Negative (Negative); Blood, Urine 2+ (Negative); Clarity Clear (Clear); Glucose, Urine (Dipstick) Normal (Negative); Ketone, Urine Negative (Negative); Leukocyte Negative Leu/uL (Negative); Nitrite Negative (Negative); Protein, Urine (Dipstick) 70 mg/dL (Neg-Trace); RBC/HPF 21-50 HPF (0-3); Specific Gravity, Urine 1.039 (1.002-1.036); Squamous Epithelial 0-3 HPF (0-3); Urobilinogen Normal mg/dL (Less than 2); WBC/HPF 0-3 HPF (0-3)
[2021-09-25] MEDS ORDERED: Electrolyte Replacement Protocol FS PRN (12:00)
[2021-09-25] MEDS ORDERED: Fentanyl 100 MCG/2 ML VIAL SLOW IVP PRN ×2 (12:04)
[2021-09-25] MEDS ORDERED: Fentanyl 100 MCG/2 ML VIAL ONE (12:08)
[2021-09-25] MEDS ORDERED: Morphine 4 MG/ML VIAL SLOW IVP PRN (12:16)
[2021-09-25] MEDS ORDERED: Morphine 2 MG/ML VIAL SLOW IVP PRN (12:16)
[2021-09-25] MEDS ORDERED: Morphine 4 MG/ML VIAL ONE (12:20)
[2021-09-25 12:39] LABS: Lactic Acid 3.8 mmol/L (0.5-2.2)
[2021-09-25 13:19] LABS: Troponin I 0.121 ng/mL (< 0.028)
[2021-09-25] MEDS ORDERED: Nitroglycerin 2% Ointment 1 INCH/1 GM Packet TOP SCH ×2 (14:00)
[2021-09-25] MEDS ORDERED: Furosemide 40 MG/4 ML VIAL SLOW IVP SCH ×2 (14:00→20:30)
[2021-09-25] MEDS ORDERED: Nitroglycerin 50 MG/250 ML BOT 250 ML ONE (14:14)
[2021-09-25] MEDS ORDERED: Nitroglycerin 100MG/250ML BOT IV SCH (14:15)
[2021-09-25] MEDS: Furosemide 100 MG/10 ML VIAL SLOW IVP SCH (14:19)
[2021-09-25] MEDS: Pantoprazole 40 MG VIAL IVP SCH (14:20)
[2021-09-25] MEDS ORDERED: Iopamidol-370 76% 500 ML 1 ML ONE (14:26)
[2021-09-25] MEDS ORDERED: Nitroglycerin 50 MG/250 ML BOT 250 ML IVPB SCH ×2 (15:45→20:30)
[2021-09-25] MEDS ORDERED: FLU VACC QS2021-22(65YR UP)/PF 240 MCG/0.7 ML SYRINGE IM ONE (16:15)
[2021-09-25] MEDS: Morphine 4 MG/ML VIAL SLOW IVP PRN (19:52)
[2021-09-25] MEDS: Metoclopramide HCl 10 MG/2 ML VIAL IVP PRN (20:01)
[2021-09-25] MEDS ORDERED: Furosemide 40 MG/4 ML VIAL ONE (20:15)
[2021-09-25] MEDS ORDERED: Famotidine/PF 20 mg/2ml Vial SLOW IVP SCH (21:00)
[2021-09-26 04:45] LABS: #Lymphocytes 1.5 thou/uL (1.20-3.40); #Monocytes 1.1 thou/uL (0.11-0.59); #Neutrophils 10.8 thou/uL (1.40-6.50); %Basophils 0.3 % (0.0-1.0); %Eosinophils 0.1 % (0.0-10.0); %Lymphocytes 11.2 % (21.0-51.0); %Monocytes 8.2 % (0.0-10.0); %Neutrophils 80.3 % (42.0-75.0); Mean Corpuscular HGB CONC 32.6 g/dL (32.0-36.0); Mean Corpuscular Hemoglobin 29.4 pg (27.0-31.0); Mean Corpuscular Volume 89.9 fL (78.0-98.0); Mean Platelet Volume 9.6 fL (7.4-10.4); Platelet Count 162 thou/uL (130-400); RBC Distribution Width 13.4 % (11.5-14.5); Red Blood Cell (RBC) Count 4.43 mill/uL (4.20-5.40); White Blood Cell (WBC) Count 13.5 thou/uL (4.8-10.8)
[2021-09-26 05:06] LABS: Anion Gap 20 mmol/L (10-20); BUN (Urea Nitrogen) 37 mg/dL (9.8-20.1); Calc. Creatinine Clearance 38 mL/min (70-130); Calcium 8.7 mg/dL (7.8-10.44); Carbon Dioxide 24 mmol/L (23-31); Chloride 102 mmol/L (98-107); Glucose 138 mg/dL (83-110); Potassium 3.4 mmol/L (3.5-5.1); Sodium 143 mmol/L (136-145)
[2021-09-26] MEDS: Furosemide 100 MG/10 ML VIAL SLOW IVP SCH ×2 (05:09→14:18)
[2021-09-26] MEDS: Metoclopramide HCl 10 MG/2 ML VIAL IVP PRN (05:09)
[2021-09-26] MEDS: Potassium Chloride 20 MEQ in Premix Bag 1 BAG IVPB SCH ×2 (05:37→07:39)
[2021-09-26] MEDS: Morphine 4 MG/ML VIAL SLOW IVP PRN ×2 (06:22→09:22)
[2021-09-26] MEDS: Enoxaparin Sodium 40 MG/0.4 ML SYRINGE SC SCH (07:39)
[2021-09-26] MEDS: Pantoprazole 40 MG VIAL IVP SCH (14:27)
[2021-09-26] MEDS: Carvedilol 3.125 MG TAB PO SCH (17:10)
[2021-09-26] MEDS: cefTRIAXone\\ROCEPHIN 2 GM in Sodium Chloride 0.9% 100 ML IVPB SCH (21:07)
[2021-09-27 05:17] LABS: Anion Gap 12 mmol/L (10-20); BUN (Urea Nitrogen) 30 mg/dL (9.8-20.1); Calc. Creatinine Clearance 48 mL/min (70-130); Calcium 8.8 mg/dL (7.8-10.44); Carbon Dioxide 33 mmol/L (23-31); Chloride 100 mmol/L (98-107); Glucose 82 mg/dL (83-110); Potassium 3.3 mmol/L (3.5-5.1); Sodium 142 mmol/L (136-145)
[2021-09-27] MEDS ORDERED: Potassium Chloride 20 MEQ TAB PO SCH ×2 (06:30→15:30)
[2021-09-27 06:44] LABS: #Lymphocytes 2.3 thou/uL (1.20-3.40); #Monocytes 0.9 thou/uL (0.11-0.59); %Basophils 0.2 % (0.0-1.0); %Eosinophils 0.2 % (0.0-10.0); %Monocytes 10.4 % (0.0-10.0); %Neutrophils 61.2 % (42.0-75.0); Hemoglobin 12.5 g/dL (12.0-16.0); Mean Corpuscular Hemoglobin 28.9 pg (27.0-31.0); Mean Corpuscular Volume 90.2 fL (78.0-98.0); Mean Platelet Volume 9.9 fL (7.4-10.4); Platelet Count 138 thou/uL (130-400); RBC Distribution Width 13.3 % (11.5-14.5); RBC Morphology Normal; Red Blood Cell (RBC) Count 4.33 mill/uL (4.20-5.40); White Blood Cell (WBC) Count 8.2 thou/uL (4.8-10.8)
[2021-09-27] MEDS: Enoxaparin Sodium 40 MG/0.4 ML SYRINGE SC SCH (08:38)
[2021-09-27] MEDS: Furosemide 40 MG TAB PO SCH (08:39)
[2021-09-27] MEDS: Spironolactone 25 MG TAB PO SCH (08:39)
[2021-09-27] MEDS: Carvedilol 3.125 MG TAB PO SCH (08:39)
[2021-09-27] MEDS ORDERED: Carvedilol 3.125 MG TAB PO SCH (14:15)
[2021-09-27] MEDS: Pantoprazole 40 MG VIAL IVP SCH (14:27)
[2021-09-27] MEDS: Carvedilol 6.25 MG TAB PO SCH (17:53)
[2021-09-27] MEDS: cefTRIAXone\\ROCEPHIN 2 GM in Sodium Chloride 0.9% 100 ML IVPB SCH (22:04)
[2021-09-28 05:07] LABS: ALT (SGPT) 86 U/L (8-55); AST (SGOT) 51 U/L (5-34); Albumin 3.4 g/dL (3.4-4.8); Alkaline Phosphatase 70 U/L (40-110); Anion Gap 11 mmol/L (10-20); BUN (Urea Nitrogen) 28 mg/dL (9.8-20.1); Bilirubin, Total 0.5 mg/dL (0.2-1.2); Calc. Creatinine Clearance 0 mL/min (70-130); Calcium 8.7 mg/dL (7.8-10.44); Carbon Dioxide 31 mmol/L (23-31); Chloride 102 mmol/L (98-107); Globulin 2.8 g/dL (2.4-3.5); Glucose 103 mg/dL (83-110); Potassium 4.1 mmol/L (3.5-5.1); Protein, Total 6.2 g/dL (5.8-8.1); Sodium 140 mmol/L (136-145)
[2021-09-28] MEDS: Enoxaparin Sodium 40 MG/0.4 ML SYRINGE SC SCH (09:33)
[2021-09-28] MEDS: Furosemide 40 MG TAB PO SCH (09:33)
[2021-09-28] MEDS: Spironolactone 25 MG TAB PO SCH (09:33)
[2021-09-28] MEDS: Carvedilol 6.25 MG TAB PO SCH ×2 (09:34→17:18)
[2021-09-28] MEDS: Pantoprazole 40 MG VIAL IVP SCH (15:44)
[2021-09-28] MEDS: cefTRIAXone\\ROCEPHIN 2 GM in Sodium Chloride 0.9% 100 ML IVPB SCH (22:37)
[2021-09-29 08:29] VITALS: BP 120/76; TEMP 98.5
[2021-09-29] MEDS ORDERED: diphenhydrAMINE 50 MG/ML VIAL ONE (10:44)
[2021-09-29] MEDS ORDERED: Famotidine/PF 20 mg/2ml Vial ONE (10:44)
[2021-09-29] MEDS ORDERED: Gentamicin 80 MG/2 ML VIAL ONE (10:44)
[2021-09-29] MEDS ORDERED: Hydrocortisone Sod Succ/PF 100 mg/2 ml Vial ONE (10:44)
[2021-09-29] MEDS ORDERED: Lidocaine 1% (PF) 30 ML VIAL ONE (10:44)
[2021-09-29] MEDS ORDERED: Midazolam HCl 2 mg/2 ml Vial ONE (10:50)
[2021-09-29] MEDS ORDERED: Fentanyl 100 MCG/2 ML VIAL ONE (10:50)
[2021-09-29] MEDS ORDERED: Propofol 500 MG/50 ML VIAL ONE (10:51)
[2021-09-29] MEDS ORDERED: Ketamine 50 MG/ML (10ML VIAL) ONE (10:57)
[2021-09-29] MEDS ORDERED: ePHEDrine 50 MG/ML VIAL ONE (11:05)
[2021-09-29] MEDS ORDERED: PHENYLEPHRINE-NS 100 MCG/ML 10 ML SYRINGE ONE (11:05)
[2021-09-29] MEDS ORDERED: PROPOFOL 200 MG/20 ML VIAL ONE (11:05)
[2021-09-29] MEDS ORDERED: CEFAZOLIN 1 GM VIAL ONE (12:48)
[2021-09-29 12:57] VITALS: BMI 19.3
[2021-09-29] MEDS: Carvedilol 6.25 MG TAB PO SCH (14:32)
[2021-09-29] MEDS: Furosemide 40 MG TAB PO SCH (14:53)
[2021-09-29] MEDS: Spironolactone 25 MG TAB PO SCH (14:53)
[2021-09-29] MEDS: Enoxaparin Sodium 40 MG/0.4 ML SYRINGE SC SCH (14:53)
[2021-09-29] MEDS: Pantoprazole 40 MG VIAL IVP SCH (14:54)
== END 2021-09-29 15:15 | disposition home or self-care (01) | DRG 226 ==
LOC: ERS 01:55 → ERHOLD 08:57 → CCU 11:23 → NEURO 09-28 08:45
PROVIDERS: ADMIT Family Medicine; ATTEND Internal Medicine
PROC: 5A09357 Assistance with Respiratory Ventilation, Less than 24 Consecutive Hours, Continuous Positive Airway Pressure (ICD-10-PCS; principal; 2021-09-25)
PROC: 0JH608Z Insertion of Defibrillator Generator into Chest Subcutaneous Tissue and Fascia, Open Approach (ICD-10-PCS; 2021-09-29)
PROC: 02HK0KZ Insertion of Defibrillator Lead into Right Ventricle, Open Approach (ICD-10-PCS; 2021-09-29)
DX: I11.0 Hypertensive heart disease with heart failure (principal); I21.A1 Myocardial infarction type 2; J96.01 Acute respiratory failure with hypoxia; I50.43 Acute on chronic combined systolic (congestive) and diastolic (congestive) heart failure; E43 Unspecified severe protein-calorie malnutrition; N17.9 Acute kidney failure, unspecified; I47.2 Ventricular tachycardia; Z68.1 Body mass index [BMI] 19.9 or less, adult; Z20.822 Contact with and (suspected) exposure to COVID-19; G62.9 Polyneuropathy, unspecified; K21.9 Gastro-esophageal reflux disease without esophagitis; E55.9 Vitamin D deficiency, unspecified; G31.84 Mild cognitive impairment of uncertain or unknown etiology; R94.31 Abnormal electrocardiogram [ECG] [EKG]; E87.6 Hypokalemia; I42.0 Dilated cardiomyopathy; Z88.5 Allergy status to narcotic agent; Z88.8 Allergy status to other drugs, medicaments and biological substances; Z91.041 Radiographic dye allergy status; Z79.01 Long term (current) use of anticoagulants; Z79.899 Other long term (current) drug therapy; Z90.710 Acquired absence of both cervix and uterus; Z98.890 Other specified postprocedural states; Z85.3 Personal history of malignant neoplasm of breast
CPT/HCPCS: 33249; 36415; 71045; 71275; 74022; 74176; 76705; 80048; 80053; 81003; 81015; 82553; 83605; 83690; 83880; 84484; 85025; 87040; 87086; 93005; 93306; 93798; 94660; C1777; C1786; C9113; J0500; J0690; J0696; J1200; J1580; J1650; J1720; J1940; J2001; J2060; J2250; J2270; J2405; J2704; J2765; J2920; J3010; J3480; J3490; Q9967; S0028; U0002

== ENCOUNTER 2021-11-09 08:36 | Outpatient (CLI) | payer MEDICARE | END 2021-11-09 08:37 | disposition home or self-care (01) | LOC: BICMAMMO 08:36 | PROVIDERS: ATTEND Physician Assistant | DX: Z12.31 Encounter for screening mammogram for malignant neoplasm of breast (principal); Z13.820 Encounter for screening for osteoporosis; Z78.0 Asymptomatic menopausal state; M85.88 Other specified disorders of bone density and structure, other site; Z85.3 Personal history of malignant neoplasm of breast; Z80.3 Family history of malignant neoplasm of breast; Z98.890 Other specified postprocedural states | CPT/HCPCS: 77063; 77067; 77080 ==

== ENCOUNTER 2022-01-11 19:13 | Emergency (ER) | payer MEDICARE ==
[2022-01-11 19:43] LABS: #Lymphocytes 2.4 thou/uL (1.20-3.40); #Monocytes 0.5 thou/uL (0.11-0.59); #Neutrophils 2.7 thou/uL (1.40-6.50); %Basophils 0.8 % (0.0-1.0); %Eosinophils 0.3 % (0.0-10.0); %Lymphocytes 42.4 % (21.0-51.0); %Monocytes 8.9 % (0.0-10.0); %Neutrophils 47.6 % (42.0-75.0); Mean Corpuscular HGB CONC 32.5 g/dL (32.0-36.0); Mean Corpuscular Hemoglobin 29.9 pg (27.0-31.0); Mean Platelet Volume 8.3 fL (7.4-10.4); Platelet Count 177 thou/uL (130-400); RBC Distribution Width 12.9 % (11.5-14.5); Red Blood Cell (RBC) Count 4.69 mill/uL (4.20-5.40); White Blood Cell (WBC) Count 5.6 thou/uL (4.8-10.8)
[2022-01-11 20:03] LABS: ALT (SGPT) 65 U/L (8-55); AST (SGOT) 46 U/L (5-34); Albumin 3.9 g/dL (3.4-4.8); Alkaline Phosphatase 88 U/L (40-110); Anion Gap 15 mmol/L (10-20); BUN (Urea Nitrogen) 24 mg/dL (9.8-20.1); Calc. Creatinine Clearance 0 mL/min (70-130); Calcium 8.9 mg/dL (7.8-10.44); Carbon Dioxide 22 mmol/L (23-31); Chloride 108 mmol/L (98-107); Globulin 2.7 g/dL (2.4-3.5); Glucose 133 mg/dL (83-110); Lipase 18 U/L (8-78); Potassium 3.4 mmol/L (3.5-5.1); Protein, Total 6.6 g/dL (5.8-8.1); Sodium 142 mmol/L (136-145)
[2022-01-11 22:20] LABS: Bilirubin Negative (Negative); Blood, Urine Trace (Negative); Clarity Clear (Clear); Glucose, Urine (Dipstick) Normal (Negative); Ketone, Urine Trace mg/dL (Negative); Leukocyte Negative Leu/uL (Negative); Mucous/LPF 2+ LPF (<2+); Nitrite Negative (Negative); Protein, Urine (Dipstick) 200 mg/dL (Neg-Trace); Renal Epithelial 0-3 HPF (None Seen); Specific Gravity, Urine 1.036 (1.002-1.036); Squamous Epithelial 0-3 HPF (0-3)
[2022-01-11 22:28] LABS: Bacteria/HPF Rare-Few HPF (None Seen)
[2022-01-11] MEDS ORDERED: Ketorolac Tromethamine 30 MG/ML VIAL ONE (22:37)
[2022-01-11] MEDS ORDERED: Dicyclomine 20 MG TAB ONE (22:52)
== END 2022-01-11 23:00 | disposition home or self-care (01) ==
LOC: ERS 19:13
DX: R10.9 Unspecified abdominal pain (principal); K21.9 Gastro-esophageal reflux disease without esophagitis; Z79.899 Other long term (current) drug therapy; I11.0 Hypertensive heart disease with heart failure; I50.9 Heart failure, unspecified
CPT/HCPCS: 71045; 80053; 81003; 81015; 83690; 83880; 84484; 85025; 93005; J1885

== ENCOUNTER 2022-07-06 12:42 | Inpatient (IN) | payer MEDICARE ==
[2022-07-06 13:50] LABS: #Monocytes 0.6 thou/uL (0.11-0.59); #Neutrophils 3.5 thou/uL (1.40-6.50); %Basophils 0.5 % (0.0-1.0); %Eosinophils 0.3 % (0.0-10.0); %Lymphocytes 19.3 % (21.0-51.0); %Monocytes 11.3 % (0.0-10.0); %Neutrophils 68.6 % (42.0-75.0); Hemoglobin 12.9 g/dL (12.0-16.0); Mean Corpuscular HGB CONC 31.8 g/dL (32.0-36.0); Mean Corpuscular Volume 91.1 fl (78.0-98.0); Mean Platelet Volume 9.5 fL (7.4-10.4); Platelet Count 152 thou/uL (130-400); RBC Distribution Width 13.4 % (11.5-14.5); Red Blood Cell (RBC) Count 4.44 mill/uL (4.20-5.40); White Blood Cell (WBC) Count 5.1 thou/uL (4.8-10.8)
[2022-07-06 14:08] LABS: ALT (SGPT) 85 U/L (8-55); AST (SGOT) 94 U/L (5-34); Albumin 3.8 g/dL (3.4-4.8); Alkaline Phosphatase 96 U/L (40-110); Anion Gap 12 mmol/L (10-20); BUN (Urea Nitrogen) 19 mg/dL (9.8-20.1); Bilirubin, Total 1.5 mg/dL (0.2-1.2); Calc. Creatinine Clearance 0 mL/min (70-130); Calcium 8.6 mg/dL (7.8-10.44); Carbon Dioxide 27 mmol/L (23-31); Chloride 101 mmol/L (98-107); Estimated GFR 68; Globulin 3.1 g/dL (2.4-3.5); Glucose 154 mg/dL (83-110); Potassium 3.4 mmol/L (3.5-5.1); Protein, Total 6.9 g/dL (5.8-8.1); Sodium 137 mmol/L (136-145)
[2022-07-06 14:23] LABS: CKMB 1.7 ng/mL (0-6.6)
[2022-07-06] MEDS ORDERED: Potassium Chloride 20 MEQ TAB ONE (16:01)
[2022-07-06 17:26] LABS: Troponin I 0.075 ng/mL (< 0.028)
[2022-07-06 17:58] VITALS: BMI 18.5
[2022-07-06 19:29] LABS: SARS-CoV-2 NAA Rapid Test Not Detected (NotDetected)
[2022-07-06 20:47] LABS: Troponin I 0.074 ng/mL (< 0.028)
[2022-07-06] MEDS ORDERED: Atorvastatin Calcium 20 MG TAB PO SCH (21:00)
[2022-07-06] MEDS: Oseltamivir 75 MG CAP PO SCH (21:00)
[2022-07-06] MEDS ORDERED: Sacubitril 49 MG/Valsartan 51 MG TABLET PO SCH (21:00)
[2022-07-06] MEDS: Acetaminophen 325 MG TAB PO PRN (21:04)
[2022-07-07 05:56] LABS: Band 7 % (5-11); Hemoglobin 13.2 g/dL (12.0-16.0); Lymphocytes 42 % (21-51); MDiff Complete? YES; Mean Corpuscular HGB CONC 32.2 g/dL (32.0-36.0); Mean Corpuscular Hemoglobin 29.2 pg (27.0-31.0); Mean Corpuscular Volume 90.7 fl (78.0-98.0); Mean Platelet Volume 9.5 fL (7.4-10.4); Monocytes 15 % (0-10); Neutrophil 31 % (42-75); Platelet Count 148 thou/uL (130-400); RBC Distribution Width 13.5 % (11.5-14.5); Reactive Lymphocytes 5 % (0-10); Red Blood Cell (RBC) Count 4.52 mill/uL (4.20-5.40); White Blood Cell (WBC) Count 5.2 thou/uL (4.8-10.8)
[2022-07-07 06:51] LABS: Anion Gap 13 mmol/L (10-20); BUN (Urea Nitrogen) 21 mg/dL (9.8-20.1); Calc. Creatinine Clearance 51 mL/min (70-130); Calcium 8.7 mg/dL (7.8-10.44); Carbon Dioxide 27 mmol/L (23-31); Chloride 102 mmol/L (98-107); Estimated GFR 77; Glucose 94 mg/dL (83-110); Potassium 3.6 mmol/L (3.5-5.1); Sodium 138 mmol/L (136-145)
[2022-07-07] MEDS ORDERED: Furosemide 40 MG TAB PO SCH (07:30)
[2022-07-07] MEDS ORDERED: Spironolactone 25 MG TAB PO SCH (08:00)
[2022-07-07] MEDS: Enoxaparin Sodium 40 MG/0.4 ML SYRINGE SC SCH (09:50)
[2022-07-07] MEDS: Oseltamivir 75 MG CAP PO SCH ×2 (09:51→21:42)
[2022-07-07 13:17] LABS: Magnesium 2.2 mg/dL (1.6-2.6); Phosphorus 2.9 mg/dL (2.3-4.7)
[2022-07-07] MEDS: Doxycycline 100 MG in Sodium Chloride 0.9% 100 ML IVPB SCH (14:50)
[2022-07-07] MEDS: Acetaminophen 325 MG TAB PO PRN (18:30)
[2022-07-07] MEDS: guaiFENesin ER 600 MG TAB PO SCH (18:30)
[2022-07-07] MEDS ORDERED: Furosemide 20 MG/2 ML VIAL SLOW IVP SCH (20:00)
[2022-07-07] MEDS ORDERED: Doxycycline 100 MG in Syringe 0 ML IVPB SCH (21:00)
[2022-07-07] MEDS ORDERED: Melatonin 3 MG TAB PO PRN (22:15)
[2022-07-08] MEDS: Doxycycline 100 MG in Sodium Chloride 0.9% 100 ML IVPB SCH ×2 (01:09→14:56)
[2022-07-08 02:10] LABS: Legionella Urinary Ag Negative (Negative)
[2022-07-08 05:14] LABS: ALT (SGPT) 132 U/L (8-55); AST (SGOT) 123 U/L (5-34); Albumin 3.2 g/dL (3.4-4.8); Alkaline Phosphatase 89 U/L (40-110); Anion Gap 11 mmol/L (10-20); BUN (Urea Nitrogen) 21 mg/dL (9.8-20.1); Bilirubin, Total 0.8 mg/dL (0.2-1.2); Calc. Creatinine Clearance 58 mL/min (70-130); Calcium 8.5 mg/dL (7.8-10.44); Carbon Dioxide 24 mmol/L (23-31); Chloride 106 mmol/L (98-107); Estimated GFR 90; Globulin 2.6 g/dL (2.4-3.5); Glucose 94 mg/dL (83-110); Phosphorus 3.3 mg/dL (2.3-4.7); Potassium 3.3 mmol/L (3.5-5.1); Protein, Total 5.8 g/dL (5.8-8.1); Sodium 138 mmol/L (136-145)
[2022-07-08 06:37] LABS: Band 5 % (5-11); Hemoglobin 12.5 g/dL (12.0-16.0); Lymphocytes 54 % (21-51); MDiff Complete? YES; Mean Corpuscular HGB CONC 32.5 g/dL (32.0-36.0); Mean Corpuscular Hemoglobin 29.6 pg (27.0-31.0); Mean Platelet Volume 10.3 fL (7.4-10.4); Monocytes 7 % (0-10); Neutrophil 34 % (42-75); Platelet Count 145 thou/uL (130-400); RBC Distribution Width 13.3 % (11.5-14.5); Red Blood Cell (RBC) Count 4.23 mill/uL (4.20-5.40); White Blood Cell (WBC) Count 3.7 thou/uL (4.8-10.8)
[2022-07-08] MEDS ORDERED: Potassium Chloride 20 MEQ TAB PO SCH (07:30)
[2022-07-08] MEDS ORDERED: Furosemide 20 MG TAB PO SCH (09:00)
[2022-07-08] MEDS ORDERED: Citalopram 10 MG TAB PO SCH (09:00)
[2022-07-08] MEDS ORDERED: Spironolactone 25 MG TAB PO SCH (09:00)
[2022-07-08] MEDS ORDERED: Furosemide 20 MG/2 ML VIAL SLOW IVP SCH (09:00)
[2022-07-08] MEDS ORDERED: Empagliflozin 10 MG TAB PO SCH (09:00)
[2022-07-08] MEDS ORDERED: Atorvastatin Calcium 20 MG TAB PO SCH (09:00)
[2022-07-08] MEDS: guaiFENesin ER 600 MG TAB PO SCH (09:08)
[2022-07-08] MEDS: Oseltamivir 75 MG CAP PO SCH (09:10)
[2022-07-08] MEDS: Enoxaparin Sodium 40 MG/0.4 ML SYRINGE SC SCH (09:10)
[2022-07-08 12:03] VITALS: BP 109/71; TEMP 97.4
[2022-07-09 00:08] LABS: Campy jejuni + coli by PCR Negative (Negative); STEC Shiga Toxin 1+2 Negative (Negative); Salmonella spp. by PCR Negative (Negative); Shigella spp + EIEC by PCR Negative (Negative)
== END 2022-07-08 15:37 | disposition home or self-care (01) | DRG 194 ==
LOC: ERS 12:42 → 2SW 17:45 → OBSVTOIN 07-08 12:12
PROVIDERS: ADMIT Internal Medicine; ATTEND Internal Medicine
DX: J10.1 Influenza due to other identified influenza virus with other respiratory manifestations (principal); I42.8 Other cardiomyopathies; I50.42 Chronic combined systolic (congestive) and diastolic (congestive) heart failure; J10.00 Influenza due to other identified influenza virus with unspecified type of pneumonia; Z20.822 Contact with and (suspected) exposure to COVID-19; R19.7 Diarrhea, unspecified; E78.00 Pure hypercholesterolemia, unspecified; E87.6 Hypokalemia; Z95.810 Presence of automatic (implantable) cardiac defibrillator; Z88.5 Allergy status to narcotic agent; Z88.8 Allergy status to other drugs, medicaments and biological substances; Z91.041 Radiographic dye allergy status; Z79.899 Other long term (current) drug therapy; Z85.3 Personal history of malignant neoplasm of breast; Z90.10 Acquired absence of unspecified breast and nipple; Z90.710 Acquired absence of both cervix and uterus; Z85.850 Personal history of malignant neoplasm of thyroid; Z82.49 Family history of ischemic heart disease and other diseases of the circulatory system
CPT/HCPCS: 36415; 71045; 80048; 80053; 82553; 83735; 83880; 84100; 84145; 84484; 85025; 87040; 87324; 87449; 87505; 87899; 93005; 93306; 96372; 96374; 96375; 96376; G0378; J1650; J1940; J3490

== ENCOUNTER 2022-07-14 13:52 | Inpatient (IN) | payer MEDICARE ==
[2022-07-14] MEDS ORDERED: methylPREDNISolone Sod Succ 40 MG VIAL ONE (14:09)
[2022-07-14] MEDS ORDERED: diphenhydrAMINE 50 MG/ML VIAL ONE (14:09)
[2022-07-14] MEDS ORDERED: Famotidine/PF 20 mg/2ml Vial ONE (14:09)
[2022-07-14 14:29] LABS: Hemoglobin 14.7 g/dL (12.0-16.0); Mean Corpuscular HGB CONC 31.3 g/dL (32.0-36.0); Mean Corpuscular Hemoglobin 28.3 pg (27.0-31.0); Mean Corpuscular Volume 90.5 fl (78.0-98.0); Mean Platelet Volume 8.9 fL (7.4-10.4); Platelet Count 247 thou/uL (130-400); RBC Distribution Width 13.8 % (11.5-14.5); Red Blood Cell (RBC) Count 5.19 mill/uL (4.20-5.40)
[2022-07-14 14:35] LABS: INR-International Normal Ratio 1.1; PTT 25.6 sec (22.9-36.1); Prothrombin Time 14.7 sec (12.0-14.7)
[2022-07-14] MEDS ORDERED: Tenecteplase 50 MG - STEMI KIT ONE (14:36)
[2022-07-14 14:44] LABS: Magnesium 2.1 mg/dL (1.6-2.6)
[2022-07-14 14:45] LABS: ALT (SGPT) 57 U/L (8-55); AST (SGOT) 40 U/L (5-34); Albumin 3.8 g/dL (3.4-4.8); Alkaline Phosphatase 98 U/L (40-110); Anion Gap 18 mmol/L (10-20); BUN (Urea Nitrogen) 21 mg/dL (9.8-20.1); Bilirubin, Total 0.9 mg/dL (0.2-1.2); CK (CPK) 87 U/L (29-168); Calc. Creatinine Clearance 0 mL/min (70-130); Calcium 9.2 mg/dL (7.8-10.44); Carbon Dioxide 22 mmol/L (23-31); Chloride 104 mmol/L (98-107); Estimated GFR 72; Globulin 3.5 g/dL (2.4-3.5); Glucose 133 mg/dL (83-110); Lipase 33 U/L (8-78); Potassium 3.1 mmol/L (3.5-5.1); Protein, Total 7.3 g/dL (5.8-8.1); Sodium 141 mmol/L (136-145)
[2022-07-14 14:47] LABS: Eosinophils 1 % (0-10); Lymphocytes 53 % (21-51); MDiff Complete? YES; Monocytes 7 % (0-10); Neutrophil 38 % (42-75); Platelet Morphology Comment Appears Adequate; RBC Morphology Normal; Reactive Lymphocytes 1 % (0-10)
[2022-07-14] MEDS ORDERED: Heparin 10,000 UNITS/ 10 ML VIAL ONE (15:11)
[2022-07-14] MEDS ORDERED: Lidocaine 1% (PF) 30 ML VIAL ONE (15:11)
[2022-07-14] MEDS ORDERED: Lidocaine 1% PF 5 ML VIAL ONE (15:30)
[2022-07-14] MEDS ORDERED: niCARdipine 25 MG in Sodium Chloride 0.9% 250 ML 250 ML IVPB PRN (15:33)
[2022-07-14] MEDS ORDERED: Acetaminophen 325 MG TAB PO PRN (15:33)
[2022-07-14] MEDS ORDERED: Labetalol HCl 100 MG/20 ML VIAL SLOW IVP PRN (15:33)
[2022-07-14] MEDS ORDERED: hydrALAZINE 20 MG/ML VIAL SLOW IVP PRN (15:33)
[2022-07-14] MEDS ORDERED: Communication Order-Pharmacy FS PRN (15:33)
[2022-07-14] MEDS ORDERED: Midazolam HCl 2 mg/2 ml Vial ONE ×2 (15:48→17:05)
[2022-07-14] MEDS ORDERED: Rocuronium Bromide 10 MG/ML (10ML VIAL) ONE (15:49)
[2022-07-14] MEDS ORDERED: PHENYLEPHRINE-NS 100 MCG/ML 10 ML SYRINGE ONE (15:49)
[2022-07-14] MEDS ORDERED: Lidocaine 2% PF 5 ML VIAL ONE (15:49)
[2022-07-14] MEDS ORDERED: Propofol 1,000 MG/100 ML VIAL IV ONE ×3 (17:21→20:09)
[2022-07-14] MEDS ORDERED: Promethazine HCl 25 MG/ML VIAL IM PRN (17:25)
[2022-07-14] MEDS ORDERED: Promethazine HCl 25 MG/ML VIAL IVPB PRN (17:25)
[2022-07-14] MEDS ORDERED: Morphine Sulfate 2 MG/ML SYRINGE SLOW IVP PRN (17:25)
[2022-07-14] MEDS ORDERED: Ondansetron HCl/PF 4 MG/2 ML Vial IVP PRN (17:25)
[2022-07-14 17:45] LABS: Actual Bicarbonate (HCO3a) 21.7 mEq/L (22-28); Base Excess (BEa) -2.2 mEq/L (-2.0 to +3.0); CO2 Tension 34.7 mmHg (35.0-45.0); Calcium, Ionized (arterial) 1.05 mmol/L (1.12-1.30); Carboxyhemoglobin (COHb) 0.7 gm% (0.0-3.0); Hemoglobin (Hb) 14.1 g/dL (12.0-16.0); O2 Tension (PaO2), arterial 125.4 mmHg (> 70.0); Potassium - ABG Lab 2.89 mmol/L (3.70-5.30); Puncture Site Arterial Line; pH, Arterial 7.41 (7.35-7.45)
[2022-07-14 17:46] LABS: ALV-art Gradient 116.425 mmHg (0-20)
[2022-07-14] MEDS ORDERED: Midazolam HCl 2 mg/2 ml Vial SLOW IVP PRN (20:11)
[2022-07-14] MEDS ORDERED: Morphine 4 MG/ML VIAL SLOW IVP PRN (20:15)
[2022-07-14] MEDS ORDERED: Propofol BOLUS 1,000 MG/100 ML VIAL IV PRN (20:15)
[2022-07-14] MEDS ORDERED: Propofol 1,000 MG/100 ML VIAL IV PRN (20:15)
[2022-07-14] MEDS ORDERED: DISCONTINUE PREVIOUS NARCOTIC PAIN MEDICATIONS AND BENZODIAZEPINES FS SCH (20:15)
[2022-07-14] MEDS ORDERED: Sodium Chloride 0.9% 500 ML IV SCH (21:15)
[2022-07-14] MEDS ORDERED: Midazolam In 0.9 % NaCl/PF 100 ML IVPB SCH (22:30)
[2022-07-14 22:32] VITALS: BMI 18.8
[2022-07-15] MEDS: Atorvastatin Calcium 40 MG TAB PO SCH (01:49)
[2022-07-15 03:33] LABS: SARS-CoV-2 NAA Rapid Test Not Detected (NotDetected)
[2022-07-15 04:26] LABS: #Lymphocytes 1.4 thou/uL (1.20-3.40); #Monocytes 0.5 thou/uL (0.11-0.59); %Basophils 0.1 % (0.0-1.0); %Lymphocytes 15.7 % (21.0-51.0); %Monocytes 5.2 % (0.0-10.0); %Neutrophils 78.9 % (42.0-75.0); Hemoglobin 13.4 g/dL (12.0-16.0); Mean Corpuscular HGB CONC 32.5 g/dL (32.0-36.0); Mean Corpuscular Hemoglobin 29.5 pg (27.0-31.0); Mean Corpuscular Volume 90.8 fl (78.0-98.0); Platelet Count 230 thou/uL (130-400); RBC Distribution Width 13.5 % (11.5-14.5); Red Blood Cell (RBC) Count 4.56 mill/uL (4.20-5.40); White Blood Cell (WBC) Count 8.9 thou/uL (4.8-10.8)
[2022-07-15 05:06] LABS: Anion Gap 13 mmol/L (10-20); BUN (Urea Nitrogen) 17 mg/dL (9.8-20.1); Calc. Creatinine Clearance 55 mL/min (70-130); Calcium 8.6 mg/dL (7.8-10.44); Carbon Dioxide 25 mmol/L (23-31); Cardiac Risk 3.6 (Less than 4.5); Chloride 108 mmol/L (98-107); Cholesterol 151 mg/dl (< 200 Desired); Estimated GFR 82; Glucose 121 mg/dL (83-110); HDL Cholesterol 42 mg/dL (>60 Neg Risk); LDL Cholesterol, Calculated 98 mg/dL; Potassium 3.1 mmol/L (3.5-5.1); Sodium 143 mmol/L (136-145); Triglycerides 55 mg/dL (Less than 150)
[2022-07-15] MEDS ORDERED: Electrolyte Replacement Protocol 1 EACH FS PRN (09:06)
[2022-07-15] MEDS: Potassium Chloride 20 MEQ in Premix Bag 1 BAG IVPB SCH ×2 (10:13→11:16)
[2022-07-15] MEDS ORDERED: Haloperidol Lactate 5 MG/ML VIAL ONE (13:53)
[2022-07-15] MEDS ORDERED: Haloperidol Lactate 5 MG/ML VIAL SLOW IVP SCH (14:00)
[2022-07-15 17:30] LABS: Potassium 3.5 mmol/L (3.5-5.1)
[2022-07-15] MEDS: Heparin 5,000 UNITS/ML VIAL SC SCH (23:37)
[2022-07-16] MEDS ORDERED: Potassium Chloride 40 MEQ in Sodium Chloride 0.9% 250 ML 250 ML IVPB SCH (00:15)
[2022-07-16] MEDS: Atorvastatin Calcium 40 MG TAB PO SCH ×2 (00:28→20:20)
[2022-07-16 08:28] LABS: #Lymphocytes 1.8 thou/uL (1.20-3.40); #Monocytes 0.6 thou/uL (0.11-0.59); #Neutrophils 5.9 thou/uL (1.40-6.50); %Basophils 0.1 % (0.0-1.0); %Eosinophils 0.1 % (0.0-10.0); %Monocytes 7.7 % (0.0-10.0); %Neutrophils 71.1 % (42.0-75.0); Hemoglobin 14.1 g/dL (12.0-16.0); Mean Corpuscular HGB CONC 31.1 g/dL (32.0-36.0); Mean Corpuscular Hemoglobin 28.8 pg (27.0-31.0); Mean Corpuscular Volume 92.6 fl (78.0-98.0); Mean Platelet Volume 8.5 fL (7.4-10.4); Platelet Count 221 thou/uL (130-400); RBC Distribution Width 13.7 % (11.5-14.5); White Blood Cell (WBC) Count 8.3 thou/uL (4.8-10.8)
[2022-07-16 08:40] LABS: Anion Gap 17 mmol/L (10-20); BUN (Urea Nitrogen) 23 mg/dL (9.8-20.1); Calc. Creatinine Clearance 51 mL/min (70-130); Calcium 9.4 mg/dL (7.8-10.44); Carbon Dioxide 21 mmol/L (23-31); Chloride 106 mmol/L (98-107); Estimated GFR 76; Glucose 118 mg/dL (83-110); Sodium 140 mmol/L (136-145)
[2022-07-16] MEDS: Aspirin 325 mg Enteric Coated Tablet PO SCH (08:49)
[2022-07-16] MEDS: Heparin 5,000 UNITS/ML VIAL SC SCH ×2 (08:54→20:20)
[2022-07-16] MEDS ORDERED: FLU VACC QS2022-23(65YR UP)/PF 240 MCG/0.7 ML SYRINGE IM ONE (09:00)
[2022-07-16] MEDS ORDERED: Digoxin 0.5 MG/2 ML AMP SLOW IVP SCH ×2 (15:15→16:15)
[2022-07-16] MEDS ORDERED: Furosemide 20 MG/2 ML VIAL SLOW IVP SCH (15:30)
[2022-07-16] MEDS: ALPRAZolam 0.25 MG TAB PO PRN (16:19)
[2022-07-16 16:27] LABS: ALT (SGPT) 45 U/L (8-55); AST (SGOT) 33 U/L (5-34); Albumin 3.6 g/dL (3.4-4.8); Alkaline Phosphatase 89 U/L (40-110); Bilirubin, Direct 0.4 mg/dL (0.1-0.3); Bilirubin, Total 1.1 mg/dL (0.2-1.2); Protein, Total 6.4 g/dL (5.8-8.1)
[2022-07-16] MEDS ORDERED: Digoxin 0.25 MG TAB PO SCH (17:15)
[2022-07-16] MEDS ORDERED: Ivabradine 5 MG TAB PO SCH (19:15)
[2022-07-17 04:09] LABS: #Basophils 0.1 thou/uL (0.0-0.2); #Lymphocytes 2.4 thou/uL (1.20-3.40); #Monocytes 0.6 thou/uL (0.11-0.59); #Neutrophils 5.2 thou/uL (1.40-6.50); %Basophils 0.6 % (0.0-1.0); %Eosinophils 0.2 % (0.0-10.0); %Lymphocytes 29.1 % (21.0-51.0); %Monocytes 7.6 % (0.0-10.0); %Neutrophils 62.4 % (42.0-75.0); Hemoglobin 13.4 g/dL (12.0-16.0); Mean Corpuscular HGB CONC 31.9 g/dL (32.0-36.0); Mean Corpuscular Hemoglobin 29.3 pg (27.0-31.0); Mean Corpuscular Volume 91.7 fl (78.0-98.0); Mean Platelet Volume 8.6 fL (7.4-10.4); Platelet Count 213 thou/uL (130-400); RBC Distribution Width 13.5 % (11.5-14.5); Red Blood Cell (RBC) Count 4.58 mill/uL (4.20-5.40); White Blood Cell (WBC) Count 8.3 thou/uL (4.8-10.8)
[2022-07-17 04:32] LABS: ALT (SGPT) 45 U/L (8-55); AST (SGOT) 47 U/L (5-34); Albumin 3.4 g/dL (3.4-4.8); Alkaline Phosphatase 97 U/L (40-110); Anion Gap 15 mmol/L (10-20); BUN (Urea Nitrogen) 23 mg/dL (9.8-20.1); Bilirubin, Total 1.9 mg/dL (0.2-1.2); Calc. Creatinine Clearance 54 mL/min (70-130); Carbon Dioxide 21 mmol/L (23-31); Chloride 105 mmol/L (98-107); Estimated GFR 82; Globulin 2.8 g/dL (2.4-3.5); Glucose 96 mg/dL (83-110); Magnesium 1.9 mg/dL (1.6-2.6); Potassium 3.9 mmol/L (3.5-5.1); Protein, Total 6.2 g/dL (5.8-8.1); Sodium 137 mmol/L (136-145)
[2022-07-17] MEDS ORDERED: Magnesium 2 GM/50 ML(in water) 2 GM in Premix Bag 1 BAG IVPB SCH (08:00)
[2022-07-17] MEDS: Digoxin 0.25 MG TAB PO SCH (10:37)
[2022-07-17] MEDS: Heparin 5,000 UNITS/ML VIAL SC SCH ×2 (10:38→21:11)
[2022-07-17] MEDS: Ivabradine 5 MG TAB PO SCH ×2 (10:38→21:10)
[2022-07-17] MEDS: Aspirin 325 mg Enteric Coated Tablet PO SCH (10:38)
[2022-07-17 18:52] LABS: Anion Gap 15 mmol/L (10-20); BUN (Urea Nitrogen) 23 mg/dL (9.8-20.1); Calc. Creatinine Clearance 55 mL/min (70-130); Carbon Dioxide 22 mmol/L (23-31); Chloride 102 mmol/L (98-107); Estimated GFR 86; Glucose 118 mg/dL (83-110); Potassium 3.5 mmol/L (3.5-5.1); Sodium 135 mmol/L (136-145)
[2022-07-17] MEDS: Atorvastatin Calcium 40 MG TAB PO SCH (21:11)
[2022-07-17] MEDS: ALPRAZolam 0.25 MG TAB PO PRN (21:15)
[2022-07-17] MEDS ORDERED: Potassium Chloride 20 MEQ TAB PO SCH (22:00)
[2022-07-17] MEDS ORDERED: OLANZapine 2.5 MG TAB PO SCH (22:45)
[2022-07-18 04:57] LABS: Bacteria/HPF None Seen HPF (None Seen); Bilirubin Negative (Negative); Blood, Urine 3+ (Negative); Clarity Clear (Clear); Glucose, Urine (Dipstick) Normal (Negative); Ketone, Urine Negative (Negative); Leukocyte Negative Leu/uL (Negative); Nitrite Negative (Negative); Protein, Urine (Dipstick) 30 mg/dL (Neg-Trace); RBC/HPF 21-50 HPF (0-3); Specific Gravity, Urine 1.011 (1.002-1.036); Squamous Epithelial 0-3 HPF (0-3); Urobilinogen Normal mg/dL (Less than 2); WBC/HPF None Seen HPF (0-3)
[2022-07-18 05:32] LABS: #Lymphocytes 2.8 thou/uL (1.20-3.40); #Neutrophils 5.5 thou/uL (1.40-6.50); %Basophils 0.2 % (0.0-1.0); %Eosinophils 0.3 % (0.0-10.0); %Lymphocytes 29.7 % (21.0-51.0); %Monocytes 10.4 % (0.0-10.0); %Neutrophils 59.5 % (42.0-75.0); Hemoglobin 13.4 g/dL (12.0-16.0); Mean Corpuscular HGB CONC 31.2 g/dL (32.0-36.0); Mean Corpuscular Hemoglobin 28.6 pg (27.0-31.0); Mean Corpuscular Volume 91.7 fl (78.0-98.0); Mean Platelet Volume 8.4 fL (7.4-10.4); Platelet Count 213 thou/uL (130-400); RBC Distribution Width 13.6 % (11.5-14.5); White Blood Cell (WBC) Count 9.3 thou/uL (4.8-10.8)
[2022-07-18 06:26] LABS: ALT (SGPT) 44 U/L (8-55); AST (SGOT) 58 U/L (5-34); Albumin 3.5 g/dL (3.4-4.8); Alkaline Phosphatase 99 U/L (40-110); Anion Gap 16 mmol/L (10-20); BUN (Urea Nitrogen) 20 mg/dL (9.8-20.1); Bilirubin, Total 1.6 mg/dL (0.2-1.2); Calc. Creatinine Clearance 58 mL/min (70-130); Calcium 8.9 mg/dL (7.8-10.44); Carbon Dioxide 17 mmol/L (23-31); Chloride 107 mmol/L (98-107); Estimated GFR 83; Globulin 3.7 g/dL (2.4-3.5); Glucose 89 mg/dL (83-110); Magnesium 2.2 mg/dL (1.6-2.6); Potassium 4.4 mmol/L (3.5-5.1); Protein, Total 7.2 g/dL (5.8-8.1); Sodium 136 mmol/L (136-145)
[2022-07-18] MEDS: Spironolactone 25 MG TAB PO SCH (07:58)
[2022-07-18] MEDS: Digoxin 0.25 MG TAB PO SCH (07:58)
[2022-07-18] MEDS: Ivabradine 5 MG TAB PO SCH ×2 (07:59→20:19)
[2022-07-18] MEDS: Aspirin 325 mg Enteric Coated Tablet PO SCH (07:59)
[2022-07-18] MEDS: Heparin 5,000 UNITS/ML VIAL SC SCH ×2 (07:59→20:10)
[2022-07-18] MEDS ORDERED: Furosemide 40 MG TAB PO SCH (17:45)
[2022-07-18] MEDS: Atorvastatin Calcium 40 MG TAB PO SCH (20:09)
[2022-07-18] MEDS ORDERED: Mag-Al 1200 mg/1200 mg/30 ML UDCUP PO SCH (20:30)
[2022-07-18] MEDS: ALPRAZolam 0.25 MG TAB PO PRN (21:38)
[2022-07-19] MEDS ORDERED: Senokot S 8.6-50 MG TAB PO SCH (02:00)
[2022-07-19 06:10] LABS: ALT (SGPT) 50 U/L (8-55); AST (SGOT) 43 U/L (5-34); Alkaline Phosphatase 98 U/L (40-110); Anion Gap 16 mmol/L (10-20); BUN (Urea Nitrogen) 19 mg/dL (9.8-20.1); Bilirubin, Total 2.3 mg/dL (0.2-1.2); Calc. Creatinine Clearance 58 mL/min (70-130); Calcium 9.5 mg/dL (7.8-10.44); Carbon Dioxide 19 mmol/L (23-31); Chloride 104 mmol/L (98-107); Estimated GFR 85; Globulin 3.4 g/dL (2.4-3.5); Glucose 182 mg/dL (83-110); Magnesium 2.2 mg/dL (1.6-2.6); Potassium 4.1 mmol/L (3.5-5.1); Protein, Total 7.4 g/dL (5.8-8.1); Sodium 135 mmol/L (136-145)
[2022-07-19] MEDS ORDERED: Furosemide 40 MG TAB PO SCH (09:00)
[2022-07-19] MEDS: Aspirin 325 mg Enteric Coated Tablet PO SCH (09:33)
[2022-07-19] MEDS: Spironolactone 25 MG TAB PO SCH (09:34)
[2022-07-19] MEDS: Heparin 5,000 UNITS/ML VIAL SC SCH ×2 (09:34→20:01)
[2022-07-19] MEDS: Ivabradine 5 MG TAB PO SCH ×2 (09:36→20:02)
[2022-07-19] MEDS: Digoxin 0.25 MG TAB PO SCH (09:43)
[2022-07-19 11:14] LABS: #Lymphocytes 1.7 thou/uL (1.20-3.40); #Neutrophils 8.9 thou/uL (1.40-6.50); %Basophils 0.3 % (0.0-1.0); %Eosinophils 0.2 % (0.0-10.0); %Monocytes 8.4 % (0.0-10.0); %Neutrophils 76.2 % (42.0-75.0); Hemoglobin 12.7 g/dL (12.0-16.0); Mean Corpuscular Hemoglobin 29.2 pg (27.0-31.0); Mean Corpuscular Volume 91.2 fl (78.0-98.0); Mean Platelet Volume 8.8 fL (7.4-10.4); Platelet Count 196 thou/uL (130-400); RBC Distribution Width 13.9 % (11.5-14.5); Red Blood Cell (RBC) Count 4.35 mill/uL (4.20-5.40); White Blood Cell (WBC) Count 11.6 thou/uL (4.8-10.8)
[2022-07-19] MEDS: Atorvastatin Calcium 40 MG TAB PO SCH (20:01)
[2022-07-19 20:22] VITALS: BP 136/89; TEMP 97.1
[2022-07-20] MEDS ORDERED: Digoxin 0.125 MG TAB PO SCH (09:00)
[2022-07-20] MEDS ORDERED: Digoxin 0.25 MG TAB PO SCH (09:00)
== END 2022-07-19 22:10 | DRG 23 ==
LOC: ERS 13:52 → CCU 15:47 → CCL 15:47 → CCU 18:05 → NEURO 07-17 15:28
PROVIDERS: ADMIT Internal Medicine; ATTEND Internal Medicine
PROC: 03CG3ZZ Extirpation of Matter from Intracranial Artery, Percutaneous Approach (ICD-10-PCS; principal; 2022-07-14)
PROC: 3E03317 Introduction of Other Thrombolytic into Peripheral Vein, Percutaneous Approach (ICD-10-PCS; 2022-07-14)
PROC: 5A1935Z Respiratory Ventilation, Less than 24 Consecutive Hours (ICD-10-PCS; 2022-07-14)
DX: I63.511 Cerebral infarction due to unspecified occlusion or stenosis of right middle cerebral artery (principal); G93.41 Metabolic encephalopathy; J96.00 Acute respiratory failure, unspecified whether with hypoxia or hypercapnia; G81.94 Hemiplegia, unspecified affecting left nondominant side; I50.22 Chronic systolic (congestive) heart failure; I42.9 Cardiomyopathy, unspecified; Z20.822 Contact with and (suspected) exposure to COVID-19; R29.810 Facial weakness; R29.716 NIHSS score 16; K21.9 Gastro-esophageal reflux disease without esophagitis; G62.9 Polyneuropathy, unspecified; F17.210 Nicotine dependence, cigarettes, uncomplicated; I34.0 Nonrheumatic mitral (valve) insufficiency; I11.0 Hypertensive heart disease with heart failure; Z88.5 Allergy status to narcotic agent; Z91.041 Radiographic dye allergy status; Z79.899 Other long term (current) drug therapy; Z90.710 Acquired absence of both cervix and uterus; Z79.01 Long term (current) use of anticoagulants; Z95.810 Presence of automatic (implantable) cardiac defibrillator; Z85.3 Personal history of malignant neoplasm of breast
CPT/HCPCS: 0042T; 36415; 61645; 70450; 70496; 70498; 70551; 71045; 76705; 80048; 80053; 80061; 80076; 81001; 82550; 82805; 83690; 83735; 84484; 85025; 85610; 85730; 93005; 93010; 93306; 94002; 94003; 96374; 96375; C1769; J1160; J1200; J1630; J1644; J1940; J2001; J2250; J2270; J2704; J2920; J3101; J3475; J3480; J3490; J7050; S0028; U0002

== ENCOUNTER 2022-08-01 18:16 | Emergency (ER) | payer MEDICARE ==
[2022-08-01] MEDS ORDERED: Ondansetron PF 4 MG/2 ML Vial ONE (19:41)
[2022-08-01] MEDS ORDERED: Pantoprazole 40 MG VIAL ONE (19:41)
[2022-08-01] MEDS ORDERED: Morphine 4 MG/ML VIAL ONE (19:41)
[2022-08-01 19:57] LABS: #Lymphocytes 1.4 thou/uL (1.20-3.40); #Monocytes 0.3 thou/uL (0.11-0.59); %Basophils 0.1 % (0.0-1.0); %Eosinophils 0.2 % (0.0-10.0); %Lymphocytes 20.8 % (21.0-51.0); %Neutrophils 73.9 % (42.0-75.0); Hemoglobin 17.2 g/dL (12.0-16.0); Mean Corpuscular Hemoglobin 28.9 pg (27.0-31.0); Mean Corpuscular Volume 90.4 fl (78.0-98.0); Mean Platelet Volume 8.8 fL (7.4-10.4); Platelet Count 238 10x3/uL (130-400); RBC Distribution Width 15.1 % (11.5-14.5); Red Blood Cell (RBC) Count 5.97 mill/uL (4.20-5.40); White Blood Cell (WBC) Count 6.8 10x3/uL (4.8-10.8)
[2022-08-01 20:05] LABS: ALT (SGPT) 83 U/L (8-55); AST (SGOT) 46 U/L (5-34); Albumin 4.6 g/dL (3.4-4.8); Alkaline Phosphatase 154 U/L (40-110); Anion Gap 21 mmol/L (10-20); BUN (Urea Nitrogen) 21 mg/dL (9.8-20.1); Bilirubin, Total 1.9 mg/dL (0.2-1.2); CK (CPK) 65 U/L (29-168); Calc. Creatinine Clearance 0 mL/min (70-130); Calcium 10.5 mg/dL (7.8-10.44); Carbon Dioxide 24 mmol/L (23-31); Chloride 96 mmol/L (98-107); Estimated GFR 65; Globulin 4.6 g/dL (2.4-3.5); Glucose 147 mg/dL (83-110); Lipase 23 U/L (8-78); Potassium 4.5 mmol/L (3.5-5.1); Protein, Total 9.2 g/dL (5.8-8.1); Sodium 136 mmol/L (136-145)
[2022-08-01 20:26] LABS: CKMB 2.8 ng/mL (0-6.6)
[2022-08-01] MEDS ORDERED: Aspirin Chewable 81 MG TAB ONE (20:58)
[2022-08-01 21:36] LABS: Troponin I 0.132 ng/mL (< 0.028)
== END 2022-08-01 22:11 | disposition home or self-care (01) ==
LOC: ERS 18:16
DX: R10.9 Unspecified abdominal pain (principal); I11.0 Hypertensive heart disease with heart failure; I50.9 Heart failure, unspecified; K21.9 Gastro-esophageal reflux disease without esophagitis; Z79.899 Other long term (current) drug therapy; Z79.82 Long term (current) use of aspirin
CPT/HCPCS: 74176; 80053; 80162; 82550; 82553; 83690; 84484; 85025; 93005; 96374; 96375; C9113; J2270; J2405

== ENCOUNTER 2022-08-04 11:19 | Emergency (ER) | payer MEDICARE ==
[2022-08-04] MEDS ORDERED: diphenhydrAMINE 50 MG/ML VIAL ONE (11:39)
[2022-08-04] MEDS ORDERED: methylPREDNISolone Sod Succ/PF 125 MG/2 ML VIAL ONE (11:39)
[2022-08-04] MEDS ORDERED: Famotidine/PF 20 mg/2ml Vial ONE (11:39)
[2022-08-04 11:57] LABS: Mean Corpuscular Hemoglobin 29.2 pg (27.0-31.0); Mean Corpuscular Volume 91.2 fl (78.0-98.0); Mean Platelet Volume 8.7 fL (7.4-10.4); Platelet Count 160 10x3/uL (130-400); RBC Distribution Width 14.9 % (11.5-14.5); Red Blood Cell (RBC) Count 6.15 mill/uL (4.20-5.40); White Blood Cell (WBC) Count 6.7 10x3/uL (4.8-10.8)
[2022-08-04 12:12] LABS: INR-International Normal Ratio 1.1; Prothrombin Time 14.3 sec (12.0-14.7)
[2022-08-04 12:21] LABS: Acetaminophen Less than 10.0 mcg/mL (10.0-30.0); Alcohol Less than 10 mg/dL (Less than 10); Magnesium 2.2 mg/dL (1.6-2.6); PTT 21.2 sec (22.9-36.1); Salicylate Less than 8.0 mg/dL (15.0-30.0)
[2022-08-04] MEDS ORDERED: Ketamine 50 MG/ML (10ML VIAL) ONE (12:21)
[2022-08-04] MEDS ORDERED: Rocuronium Bromide 10 MG/ML (10ML VIAL) ONE (12:21)
[2022-08-04 12:33] LABS: Band 1 % (5-11); Differential Comment PLT count may be decreased due to clotting.; Lymphocytes 35 % (21-51); MDiff Complete? YES; Monocytes 5 % (0-10); Neutrophil 59 % (42-75); Platelet Clumps MODERATE; Platelet Morphology Comment Appears Adequate; Target Cells SLIGHT = 2-5 cells (100X) (0-1/hpf)
[2022-08-04] MEDS ORDERED: FENTANYL 50 MCG/ML 1 ML VIAL ONE (12:54)
[2022-08-04 13:00] LABS: Actual Bicarbonate (HCO3a) 25.7 mEq/L (22-28); Analyzer IN Cardio ER; Base Excess (BEa) 3.2 mEq/L (-2.0 to +3.0); CO2 Tension 33.3 mmHg (35.0-45.0); Calcium, Ionized (arterial) 1.13 mmol/L (1.12-1.30); Carboxyhemoglobin (COHb) 0.8 gm% (0.0-3.0); Hemoglobin (Hb) 17.1 g/dL (12.0-16.0); O2 Tension (PaO2), arterial 131.2 mmHg (> 70.0); pH, Arterial 7.51 (7.35-7.45)
[2022-08-04 13:06] LABS: ALT (SGPT) 52 U/L (8-55); AST (SGOT) 53 U/L (5-34); Albumin 4.1 g/dL (3.4-4.8); Alkaline Phosphatase 123 U/L (40-110); Anion Gap 26 mmol/L (10-20); BUN (Urea Nitrogen) 29 mg/dL (9.8-20.1); Bilirubin, Total 1.6 mg/dL (0.2-1.2); CK (CPK) 71 U/L (29-168); Calc. Creatinine Clearance 0 mL/min (70-130); Calcium 9.7 mg/dL (7.8-10.44); Carbon Dioxide 18 mmol/L (23-31); Chloride 97 mmol/L (98-107); Estimated GFR 43; Globulin 4.4 g/dL (2.4-3.5); Glucose 121 mg/dL (83-110); Lipase 40 U/L (8-78); Potassium 5.4 mmol/L (3.5-5.1); Protein, Total 8.5 g/dL (5.8-8.1); Sodium 136 mmol/L (136-145)
[2022-08-04 13:06] LABS: ALV-art Gradient 41.075 mmHg (0-20); Puncture Site RRA
[2022-08-04 13:09] LABS: CKMB 1.8 ng/mL (0-6.6)
[2022-08-04 13:18] LABS: Amphetamine Not Detected (NotDetected); Barbiturates Screen Not Detected (NotDetected); Benzodiazepine Screen Not Detected (NotDetected); Cocaine Metabolite Screen Not Detected (NotDetected); Methadone Not Detected (NotDetected); Methamphetamine Not Detected (NotDetected); Opiate Screen Not Detected (NotDetected); Oxycodone Screen Not Detected (NotDetected); Phencyclidine (PCP) Not Detected (NotDetected); THC/Cannabinoid Screen Detected (NotDetected); Tricyclic Screen Not Detected (NotDetected)
[2022-08-04 13:21] LABS: Bacteria/HPF None Seen HPF (None Seen); Bilirubin Negative (Negative); Blood, Urine Trace (Negative); Clarity Clear (Clear); Glucose, Urine (Dipstick) Normal (Negative); Ketone, Urine Negative (Negative); Leukocyte Negative Leu/uL (Negative); Nitrite Negative (Negative); Protein, Urine (Dipstick) 20 mg/dL (Neg-Trace); Specific Gravity, Urine 1.029 (1.002-1.036); Squamous Epithelial 0-3 HPF (0-3); Urobilinogen Normal mg/dL (Less than 2); WBC/HPF 0-3 HPF (0-3); pH, Urine 6.5 (5.0-9.0)
[2022-08-04 13:40] LABS: SARS-CoV-2 NAA Rapid Test Not Detected (NotDetected)
== END 2022-08-04 13:20 | disposition short-term general hospital (02) ==
LOC: ERS 11:19
DX: I63.9 Cerebral infarction, unspecified (principal); R29.737 NIHSS score 37; J96.90 Respiratory failure, unspecified, unspecified whether with hypoxia or hypercapnia; Z20.822 Contact with and (suspected) exposure to COVID-19; I10 Essential (primary) hypertension; K21.9 Gastro-esophageal reflux disease without esophagitis
CPT/HCPCS: 31500; 36600; 51702; 70450; 70496; 70498; 71045; 80306; 80307; 82550; 82553; 82805; 83605; 83690; 83735; 84484; 85610; 85730; 87086; 93005; 94002; 94760; 96374; 96375; 99291; 99292; U0002; 36415; 80053; 81003; 81015; 84443; 85025; J1200; J2930; J3010; S0028